=== PATIENT | female | born 1950 | race Caucasian/White ===

== ENCOUNTER → 2018-04-10 09:08 | Outpatient (CLI) | payer MEDICARE, OTHER, SELFPAY ==
--- NOTE | 2018-04-10 09:12 | BI_ITS ---
MAMMOGRAPHY - BILATERAL SCREENING REASON FOR EXAM: Female, 67 years old. Routine annual screening examination. PERTINENT HISTORY: Non-contributory. TECHNIQUE: Digital bilateral breast julianna (3D mammographic acquisition) in the CC and MLO projections. 2-D mediolateral oblique (MLO) and craniocaudad (CC) views of both breasts were obtained. CAD: Full Field Digital Mammography with Computer Added Detection was performed. COMPARISON: Comparison is made with prior examination dated February 11, 2014. FINDINGS: Breast Composition: There are scattered areas of fibroglandular density. There are no dominant masses or suspicious calcifications. No other significant abnormalities are identified. There has been no significant change since the prior study. BI/SCREENING MAMM (CAD), BILAT IMPRESSION: Stable bilateral screening mammogram. Yearly follow-up mammogram recommended. (A) ASSESSMENT CATEGORY: BIRADS Category 1: Negative. A letter regarding these results will be sent to the patient by the facility within 30 days. Approximately 10% of breast cancers are not detected by mammography. A normal mammogram should not delay biopsy of a clinically suspicious abnormality. [id number] Electronically Signed: Gary Hawley MD at 13:03 EST , Service support ,
--- NOTE | 2018-04-10 09:23 | BD_ITS ---
STUDY: DUAL ENERGY X-RAY ABSORPTIOMETRY / DXA REASON FOR EXAM: Female, 67 years old. The patient is postmenopausal. No loss of height. TECHNIQUE: Bone Mineral Density (BMD) measurements of lumbar spine and bilateral hips were obtained. COMPARISON: Comparison is made with prior study dated February 22, 2010. FINDINGS: Lumbar Spine (L1-L4): g/cm2 (0.938) / T-score (-2.0) / Z-score (-0.4) Findings are suggestive of osteopenia with a moderate fracture risk. Left Femur Total: g/cm2 (0.718) / T-score (-2.3) / Z-score (-1.0) Left Femoral Neck: g/cm2 (0.631) / T-score (-2.9) / Z-score (-1.4) Right Femur Total: g/cm2 (0.690) / T-score (-2.5) / Z-score (-1.2) Right Femoral Neck: g/cm2 (0.650) / T-score (-2.8) / Z-score (-1.2) The T-Scores on the most recent prior examination were: Lumbar Spine (L1-L4): There has been worsening of bone density since the previous examination. Left Femur Total: which represents a worsening of 3.6%. Right Femur Total: which represents a worsening of 10.3%. BD/Dexa Bone Density Study IMPRESSION: The patient is considered osteoporotic as outlined below according to World [employer] Organization (WHO) criteria with a high fracture risk. There has been worsening of bone density since the previous examination. Reference Information: The T-score is the number of standard deviations above or below the standard which is normal for young adults at their peak bone mineral density. The World Health Organization (WHO) interprets the T-scores as follows: Above -1 Normal bone density Between -1 and -2.5 Osteopenia Equal to / or below -2.5 Osteoporosis As a practical clinical guideline, osteopenia may be graded as follows: Mild -1 through -1.5 Moderate -1.6 through -2.0 Severe -2.1 through -2.4 The Z-score is the number of standard deviations above or below age-matched controls. A Z-score of less than -1.5 would be considered abnormal. References: 1. NIH Osteoporosis and Related Bone Diseases http://www.osteo.org 2. International Society for Clinical Densitometry http://www.iscd.org 3. National Osteoporosis Foundation http://www.nof.org Electronically Signed: Gary Hawley MD at 16:04 EST , Service support ,
== END ==
PROVIDERS: Family Provider Internal Medicine; PCP Internal Medicine; Referring Provider Internal Medicine; Visit Provider Internal Medicine
DX: Z12.31 Encounter for screening mammogram for malignant neoplasm of breast (principal); Z78.0 Asymptomatic menopausal state
CPT/HCPCS: 77063; 77067; 77080

== ENCOUNTER → 2019-08-31 14:30 | Outpatient (CLI) | payer MEDICARE, OTHER, SELFPAY ==
--- NOTE | 2019-08-31 14:40 | BI_ITS ---
MAMMOGRAPHY - BILATERAL SCREENING REASON FOR EXAM: Female, 68 years old. Routine annual screening examination. PERTINENT HISTORY: Non-contributory. TECHNIQUE: Digital bilateral breast burton (3D mammographic acquisition) in the CC and MLO projections. 2-D mediolateral oblique (MLO) and craniocaudad (CC) views of both breasts were obtained. CAD: Full Field Digital Mammography with Computer Added Detection was performed. COMPARISON: Comparison is made with prior examination dated April 10, 2018 and February 22, 2010. FINDINGS: Breast Composition: There are scattered areas of fibroglandular density. There are no dominant masses or suspicious calcifications. No other significant abnormalities are identified. There has been no significant change since the prior study. BI/SCREEN MAMM (CAD) W/BURTON BILAT IMPRESSION: Stable bilateral screening mammogram. Yearly follow-up mammogram recommended. (A) ASSESSMENT CATEGORY: BIRADS Category 1: Negative. A letter regarding these results will be sent to the patient by the facility within 30 days. Approximately 10% of breast cancers are not detected by mammography. A normal mammogram should not delay biopsy of a clinically suspicious abnormality. [id number] Electronically Signed: Gary Hawley, at 15:39 EDT , Service support ,
== END ==
PROVIDERS: PCP Internal Medicine; Referring Provider Internal Medicine; Visit Provider Internal Medicine
DX: Z12.31 Encounter for screening mammogram for malignant neoplasm of breast (principal)
CPT/HCPCS: 77063; 77067

== ENCOUNTER → 2019-09-18 | Outpatient (CLI) | payer MEDICARE, OTHER, SELFPAY ==
--- NOTE | 2019-09-18 09:09 | RAD_ITS ---
STUDY: X-RAY CHEST REASON FOR EXAM: Female, 68 years old. Hypertension. Tightness in the chest. TECHNIQUE: PA and lateral views of the chest. COMPARISON: None. FINDINGS: The lungs are clear and expanded. There is no demonstrated pleural abnormality. Normal size heart. Normal mediastinum and barrington. Normal visualized pulmonary arteries. Normal visualized aortic arch and descending thoracic aorta. Normal visualized thoracic spine. Normal visualized ribs, clavicles, and shoulders. There is no demonstrated abnormality of the visualized soft tissue structures of the upper abdomen. RAD/Chest PA and Lateral IMPRESSION: No acute cardiopulmonary disease. Electronically Signed: Nathan Jerry DO at 16:47 EDT Tel [phone], Service support ,
== END | disposition home or self-care (01) ==
PROVIDERS: PCP Internal Medicine; Referring Provider Internal Medicine; Visit Provider Internal Medicine
DX: R00.2 Palpitations (principal); R07.89 Other chest pain
CPT/HCPCS: 71046; 93225; 93226

== ENCOUNTER → 2019-10-08 09:58 | Outpatient (CLI) | payer MEDICARE, OTHER, SELFPAY ==
--- NOTE | 2019-10-08 10:01 | ECHOD_ITS ---
Reason For Study: Chest Tightness Procedure This was a 2D Doppler, Color Flow transthoracic echocardiogram. Exam performed in department. Left Ventricle Normal LV size. The estimated ejection fraction is 70 %. No evidence for diastolic dysfunction. No regional wall motion abnormalities noted. Right Ventricle Normal RV size. Normal systolic function. Atria Normal left atrium. Normal right atrium. No doppler evidence for ASD. Mitral Valve There is no mitral valve stenosis. Trivial mitral valve insufficiency. Tricuspid Valve There is no tricuspid stenosis. Trivial tricuspid valve insufficiency. Unable to estimate RV systolic pressure due to insufficient tricuspid regurgitant envelope. Aortic Valve Trisinus/trileaflet aortic valve. There is no aortic stenosis. No aortic valve insufficiency. Pulmonic Valve There is no pulmonic valvular stenosis. No pulmonic valve insufficiency. Great Vessels Normal aortic root. Pericardium/Pleural No pericardial effusion. MMode/2D Measurements & Calculations LVIDd: 3.9 cm IVSd: 1.3 cm Ao root diam: 2.7 cm LVIDs: 2.2 cm LVPWd: 1.3 cm RVDd: 2.7 cm FS: 44.4 % LAV(MOD-bp): 40.6 ml LVAd ap4: 22.2 cm2 SV(MOD-sp4): 37.6 ml LAV(MOD-bp) Indexed: 22.2 ml/m2 EDV(MOD-sp4): 58.6 ml LAV(MOD-sp2): 44.3 ml EDV(sp4-el): 59.2 ml LAV(MOD-sp4): 33.8 ml LVAs ap4: 11.3 cm2 ESV(MOD-sp4): 21.1 ml ESV(sp4-el): 20.0 ml EF(MOD-sp4): 64.0 % EF(sp4-el): 66.2 % SV(sp4-el): 39.2 ml LA A4 area: 14.6 cm2 LA dimension(2D): 3.1 cm RA A4 area: 12.0 cm2 Doppler Measurements & Calculations MV E max feliciano: 59.9 cm/sec Lat Peak E' Feliciano: 7.9 cm/sec Med Peak E' Feliciano: 4.7 cm/sec MV A max feliciano: 75.5 cm/sec E/E' lat: 7.5 E/E' med: 12.7 MV E/A: 0.79 Ao V2 max: 133.3 cm/sec LV V1 max: 84.5 cm/sec PA V2 max: 74.7 cm/sec Ao max P.1 mmHg LV V1 max P.9 mmHg Ao V2 mean: 96.1 cm/sec Ao mean P.0 mmHg Ao V2 VTI: 25.4 cm TR max feliciano: 235.6 cm/sec TR max P.2 mmHg Interpretation Summary No evidence for diastolic dysfunction. Trivial mitral valve insufficiency. Trivial tricuspid valve insufficiency. The estimated ejection fraction is 70 %. Ordering Physician: Karissa Bundy Referring Physician: Lanie Huddleston Performed By: Heidi Hannah, ARMOND, RVT
== END ==
PROVIDERS: PCP Internal Medicine; Referring Provider Internal Medicine; Visit Provider Internal Medicine
DX: R07.89 Other chest pain (principal)
CPT/HCPCS: 93306

== ENCOUNTER → 2020-01-11 | Outpatient (CLI) | payer MEDICARE, OTHER, SELFPAY ==
[2020-01-11 13:12] LABS: Absolute Lymphocyte Count 0.43 X10^3/uL (0.83-4.51); Absolute Neutrophil Count 8.9 X10^3/uL (2.0-7.7); Basophil# 0.02 X10^3/uL; Basophil% 0.2 % (0-1); Eosinophil# 0.16 X10^3/uL; Eosinophils% 1.6 % (0-5); Hematocrit 40.8 % (37-47); Hemoglobin 13.2 g/dL (12.0-15.0); Lymphocyte # 0.43 X10^3/ul (4.0); Lymphocyte % 4.3 % (19-41); Mean Corp Hgb Conc 32.4 g/dL (32-36); Mean Corpuscular Hgb 32.2 pg (27.0-32.0); Mean Corpuscular Volume 99.5 fL (81-99); Mean Platelet Vol. 9.4 fl (6.2-12.0); Monocyte# 0.51 X10^3/uL; Monocyte% 5.1 % (0-10); NRBC Flagged by Analyzer 0 % (0-5); Neutrophil # 8.86 X10^3/uL (2.7-7.7); Neutrophil % 88.5 % (47-70); POSITIVE DIFFERENTIAL YES; Platelet Count 291 K/mm3 (150-450); RBC Distribution Width CV 13.1 % (11.6-14.6); RBC Distribution Width SD 47.9 fl (35.1-43.9)
[2020-01-11 13:19] LABS: Differential Indicated SCAN CRITERIA MET; Erythrocyte Sedimentation Rate 7 mm/hr (0-30)
[2020-01-11 13:51] LABS: Platelet Estimate ADEQUATE (ADEQ); Red Cell Morphology NORM C+C NORMAL (NORM C&C)
[2020-01-11 13:53] LABS: ALB/GLOB Ratio 0.9 RATIO (0.9-2.4); AST(SGOT) 10 U/L (15-37); Alanine Aminotransfer ALT/SGPT 14 U/L (13-56); Albumin, Serum 3.7 g/dL (3.2-5.0); Alkaline Phosphatase 83 U/L (45-117); Amylase 43 U/L (25-115); Anion Gap 7 (5-15); BUN 10 mg/dL (7-18); BUN/Creat Ratio 12.7 RATIO (10-20); Calcium,Total 8.8 mg/dL (8.5-10.1); Chloride 107 mmol/L (98-107); Creatinine, Serum 0.79 mg/dL (0.55-1.02); EST Glomerular Filtration Rate 77 mL/min (>60); Est Glom Filt Rate - Afr Amer 93 mL/min (>60); Globulin 3.9 g/dL (2.2-4.2); Glucose 99 mg/dL (74-106); Lipase 107 U/L (73-393); Potassium 3.9 mmol/L (3.5-5.1); Protein, Total 7.6 g/dL (6.4-8.2); Sodium Level 140 mmol/L (136-145)
== END | disposition home or self-care (01) ==
LOC: LABSPEC 13:01
PROVIDERS: PCP Internal Medicine; Referring Provider Internal Medicine; Visit Provider Internal Medicine
DX: R10.13 Epigastric pain (principal)
CPT/HCPCS: 80053; 82150; 83690; 84484; 85025; 85652

== ENCOUNTER 2020-05-04 17:21 | Outpatient (RCR) | payer MEDICARE, OTHER, SELFPAY | END 2020-05-04 23:59 | LOC: IMMUN 17:21 | PROVIDERS: PCP Internal Medicine; Visit Provider Family Medicine | DX: Z23 Encounter for immunization (principal) | CPT/HCPCS: 0011A; 0012A ==

== ENCOUNTER → 2020-09-15 11:02 | Outpatient (CLI) | payer MEDICARE, OTHER, SELFPAY ==
--- NOTE | 2020-09-15 11:04 | BI_ITS ---
MAMMOGRAPHY - BILATERAL SCREENING REASON FOR EXAM: Female, 69 years old. Routine annual screening examination. PERTINENT HISTORY: Non-contributory. TECHNIQUE: Digital bilateral breast burton (3D mammographic acquisition) in the CC and MLO projections. 2-D mediolateral oblique (MLO) and craniocaudad (CC) views of both breasts were obtained. CAD: Full Field Digital Mammography with Computer Added Detection was performed. COMPARISON: Comparison is made with prior study dated 08/31/2019 and 04/10/2018. FINDINGS: Breast Composition: There are scattered areas of fibroglandular density. Possible 9.3 mm x 9 mm nodule in the medial retroareolar region of the left breast. Correlation with ultrasound is recommended. No other significant abnormalities are identified. BI/SCRN MAMM (CAD)W/BURTON BILAT IMPRESSION: Possible 9.3 mm x 9 mm nodule in the medial retroareolar region of the left breast. Correlation with ultrasound is recommended. ASSESSMENT CATEGORY: BIRADS Category 0: Incomplete. Need additional imaging evaluation. A letter regarding these results will be sent to the patient by the facility within 30 days. Approximately 10% of breast cancers are not detected by mammography. A normal mammogram should not delay biopsy of a clinically suspicious abnormality. [id number] Electronically Signed: Gary Hawley MD at 12:57 EDT , Service support ,
--- NOTE | 2020-09-15 11:10 | BD_ITS ---
STUDY: DUAL ENERGY X-RAY ABSORPTIOMETRY / DXA REASON FOR EXAM: Female, 69 years old. V76.12ScreeningBONE DENSITY REASON FOR EXAM TECHNIQUE: Bone Mineral Density (BMD) measurements of lumbar spine and bilateral hips were obtained. COMPARISON: Comparison is made with prior study dated 04/10/2018. FINDINGS: Lumbar Spine (L1-L4): g/cm2 (0.794) / T-score (-2.3) / Z-score (-0.2) Findings are suggestive of osteopenia with a high fracture risk. Left Femur Total: g/cm2 (0.707) / T-score (-1.9) / Z-score (-0.4) Left Femoral Neck: g/cm2 (0.526) / T-score (-2.9) / Z-score (-1.1) Right Femur Total: g/cm2 (0.692) / T-score (-2.0) / Z-score (-0.6) Right Femoral Neck: g/cm2 (0.511) / T-score (-3.0) / Z-score (-1.3) The T-Scores on the most recent prior examination were: Lumbar Spine (L1-L4): There has been worsening of bone density since the previous examination. Left Femur Total: which represents an improvement of 7%. Right Femur Total: which represents an improvement of 9.4%. BD/Dexa Bone Density Study IMPRESSION: The patient is considered osteoporotic as outlined below according to World [employer] Organization (WHO) criteria with a high fracture risk. There has been improvement of bone density since the previous examination. Reference Information: The T-score is the number of standard deviations above or below the standard which is normal for young adults at their peak bone mineral density. The World Health Organization (WHO) interprets the T-scores as follows: Above -1 Normal bone density Between -1 and -2.5 Osteopenia Equal to / or below -2.5 Osteoporosis As a practical clinical guideline, osteopenia may be graded as follows: Mild -1 through -1.5 Moderate -1.6 through -2.0 Severe -2.1 through -2.4 The Z-score is the number of standard deviations above or below age-matched controls. A Z-score of less than -1.5 would be considered abnormal. References: 1. NIH Osteoporosis and Related Bone Diseases www osteo.org 2. International Society for Clinical Densitometry www iscd.org 3. National Osteoporosis Foundation www nof.org Electronically Signed: Gary Hawley MD at 10:56 EDT , Service support ,
== END ==
PROVIDERS: PCP Internal Medicine; Referring Provider Internal Medicine; Visit Provider Internal Medicine
DX: Z78.0 Asymptomatic menopausal state (principal); Z12.31 Encounter for screening mammogram for malignant neoplasm of breast
CPT/HCPCS: 77063; 77067; 77080

== ENCOUNTER → 2020-09-19 13:56 | Outpatient (CLI) | payer MEDICARE, OTHER, SELFPAY ==
--- NOTE | 2020-09-19 13:58 | US_ITS ---
STUDY: ULTRASOUND BREAST - LEFT REASON FOR EXAM: Female, 69 years old. Abnormal screening mammogram. TECHNIQUE: Axial and longitudinal images of the LEFT breast were performed with a high resolution ultrasound transducer. # OF IMAGES: 60 COMPARISON: Comparison is made with prior mammogram dated 09/15/2020. FINDINGS: LEFT Breast: The left breast was examined by ultrasound. There is evidence of the fibroglandular tissue. No sonographic abnormality is seen. US/Breast Limited Unilateral IMPRESSION: No sonographic abnormality is seen. ASSESSMENT CATEGORY: BIRADS Category 1: Negative. A letter regarding these results will be sent to the patient by the facility within 30 days. Electronically Signed: Gary Hawley MD at 22:30 EDT , Service support ,
== END ==
PROVIDERS: PCP Internal Medicine; Referring Provider Internal Medicine; Visit Provider Internal Medicine
DX: R92.2 Inconclusive mammogram (principal)
CPT/HCPCS: 76642

== ENCOUNTER → 2021-12-25 | Outpatient (CLI) | payer MEDICARE, OTHER, SELFPAY ==
--- NOTE | 2021-12-25 14:59 | BI_ITS ---
MAMMOGRAPHY - BILATERAL SCREENING REASON FOR EXAM: Female, 71 years old. Routine annual screening examination. PERTINENT HISTORY: Non-contributory. TECHNIQUE: Digital bilateral breast burton (3D mammographic acquisition) in the CC and MLO projections. 2-D mediolateral oblique (MLO) and craniocaudad (CC) views of both breasts were obtained. CAD: Full Field Digital Mammography with Computer Added Detection was performed. COMPARISON: Comparison is made with prior study dated 09/15/2020 and 08/31/2019. FINDINGS: Breast Composition: There are scattered areas of fibroglandular density. There are no dominant masses or suspicious calcifications. No other significant abnormalities are identified. There has been no significant change since the prior study. BI/SCRN MAMM (CAD)W/BURTON BILAT IMPRESSION: Stable bilateral screening mammogram. Yearly follow-up mammogram recommended. (A) ASSESSMENT CATEGORY: BIRADS Category 1: Negative. A letter regarding these results will be sent to the patient by the facility within 30 days. Approximately 10% of breast cancers are not detected by mammography. A normal mammogram should not delay biopsy of a clinically suspicious abnormality. [id number] Electronically Signed: Gary Hawley MD at 15:41 EDT ,
== END | disposition home or self-care (01) ==
PROVIDERS: PCP Internal Medicine; Referring Provider Internal Medicine; Visit Provider Internal Medicine
DX: Z12.31 Encounter for screening mammogram for malignant neoplasm of breast (principal)
CPT/HCPCS: 77063; 77067

== ENCOUNTER → 2022-12-26 | Outpatient (CLI) | payer MEDICARE, OTHER, SELFPAY ==
--- NOTE | 2022-12-26 10:58 | BI_ITS ---
MAMMOGRAPHY - BILATERAL SCREENING REASON FOR EXAM: Female, 72 years old. Routine annual screening examination. PERTINENT HISTORY: Non-contributory. TECHNIQUE: Digital bilateral breast burton (3D mammographic acquisition) in the CC and MLO projections. 2-D mediolateral oblique (MLO) and craniocaudad (CC) views of both breasts were obtained. CAD: Full Field Digital Mammography with Computer Added Detection was performed. COMPARISON: Comparison is made with prior study dated December 25, 2021 and September 15, 2020. FINDINGS: Breast Composition: There are scattered areas of fibroglandular density. There are no dominant masses or suspicious calcifications. Small left benign appearing axillary lymph nodes. No other significant abnormalities are identified. There has been no significant change since the prior study. BI/SCRN MAMM (CAD)W/BURTON BILAT IMPRESSION: Stable bilateral screening mammogram. Yearly follow-up mammogram recommended. (A) ASSESSMENT CATEGORY: BIRADS Category 2: Benign. A letter regarding these results will be sent to the patient by the facility within 30 days. Approximately 10% of breast cancers are not detected by mammography. A normal mammogram should not delay biopsy of a clinically suspicious abnormality. [id number] Electronically Signed: Gary Hawley MD at 12:21 EDT ,
== END | disposition home or self-care (01) ==
LOC: OPBI 10:57
PROVIDERS: PCP Internal Medicine; Referring Provider Internal Medicine; Visit Provider Internal Medicine
DX: Z12.31 Encounter for screening mammogram for malignant neoplasm of breast (principal)
CPT/HCPCS: 77063; 77067

== ENCOUNTER → 2023-04-02 | Outpatient (CLI) | payer MEDICARE, OTHER, SELFPAY ==
--- NOTE | 2023-04-02 12:41 | BD_ITS ---
STUDY: DUAL ENERGY X-RAY ABSORPTIOMETRY / DXA REASON FOR EXAM: Female, 72 years old. [id number] TECHNIQUE: Bone Mineral Density (BMD) measurements of lumbar spine and bilateral hips were obtained. COMPARISON: Comparison is made with prior study dated September 15, 2020. FINDINGS: Lumbar Spine (L1-L4): g/cm2 (0.764) / T-score (-2.6) / Z-score (-0.3) Findings are suggestive of osteoporosis with a high fracture risk. Left Femur Total: g/cm2 (0.689) / T-score (-2.1) / Z-score (-0.4) Left Femoral Neck: g/cm2 (0.481) / T-score (-3.3) / Z-score (-1.4) Right Femur Total: g/cm2 (0.698) / T-score (-2.0) / Z-score (-0.4) Right Femoral Neck: g/cm2 (0.499) / T-score (-3.2) / Z-score (-1.2) The T-Scores on the most recent prior examination were: Lumbar Spine (L1-L4): There has been worsening of bone density since the previous examination. Left Femur Total: which represents a worsening of 2.4%. Right Femur Total: which represents an improvement of 0.8%. BD/Dexa Bone Density Study IMPRESSION: The patient is considered osteoporotic as outlined below according to World [employer] Organization (WHO) criteria with a high fracture risk. There has been worsening of bone density since the previous examination. Reference Information: The T-score is the number of standard deviations above or below the standard which is normal for young adults at their peak bone mineral density. The World Health Organization (WHO) interprets the T-scores as follows: Above -1 Normal bone density Between -1 and -2.5 Osteopenia Equal to / or below -2.5 Osteoporosis As a practical clinical guideline, osteopenia may be graded as follows: Mild -1 through -1.5 Moderate -1.6 through -2.0 Severe -2.1 through -2.4 The Z-score is the number of standard deviations above or below age-matched controls. A Z-score of less than -1.5 would be considered abnormal. References: 1. NIH Osteoporosis and Related Bone Diseases www osteo.org 2. International Society for Clinical Densitometry www iscd.org 3. National Osteoporosis Foundation www nof.org Electronically Signed: Gary Hawley MD at 14:54 EST ,
--- OUTSIDE RECORDS SUMMARY | 2023-04-02 13:21 | XMS RPT_ITS | CCD ---
Author Name Unknown Address [address] [place] [address] Organization [facility] Care Team Providers Care Geothermal Operating Engineer Name Role Phone OLY GASPAR (ESTER) Unavailable Unavailable IRENE LÓPEZ Unavailable Unavailable CADEN SALEH Unavailable Unavailable CADEN SALEH Unavailable Unavailable OLY GASPAR (ESTER) Unavailable Unavailable OLY GASPAR (ESTER) Unavailable Unavailable IRENE LÓPEZ Unavailable Unavailable Karissa Bundy Unavailable RUTH ANN Cannon Unavailable Unavailable Unavailable Unavailable Karissa Bundy Unavailable RUTH ANN Cannon Unavailable Unavailable Unavailable Unavailable Slarb, Dilma Unavailable Unavailable RUTH ANN Cannon Unavailable Unavailable Manjessica Savita Unavailable Unavailable Flaquito, Lanie A Unavailable Cathy Ortiz Unavailable Unavailable Karissa Bundy MD Unavailable RUTH ANN Cannon LPN Unavailable Unavailable Unavailable Unavailable Karissa Bundy MD Unavailable Janie Lea MA Unavailable Unavailable Barron HARTLEY, Kayela Unavailable Unavailable Evy RODRIGUEZ, Margo Unavailable Unavailable Unavailable Unavailable Manjessica HARTLEY, Savita Unavailable Unavailable Karissa Bundy MD Attending Unavailable Karissa Bundy MD Consulting Unavailable Karissa Bundy MD Referring Unavailable Cash , Dr. Adams Unavailable Flaquita Sawyer Unavailable Unavailab le Medications Completed/Discontinued Medications Medication Drug Class(es) Dates Sig (Normalized) Sig (Original) amoxicillin 875 mg / clavulanate 125 mg oral tablet (20 sources) Penicillin-class Antibacterial Start: 06-01-2021 End: 07-18-2021 take 1 tablet by mouth twice daily Amoxicillin-Pot Clavulanate 875-125 MG Oral Tablet 1 (one) Tablet bid for 0 days Quantity: 20 {Tablet} Refills: 0 Ordered: 18-Jul-2021 RUTH ANN Cannon LPN Start : 01-Jun-2021 End : 18-Jul-2021 Inactive Problems Active Problems Problem Classification Problem Date Documented Da te Episodic/Chronic Abdominal pain (20 sources) Epigastric pain; Translations: [Epigastric pain] Resolved: 01-22-2022 11-27-2018 Episodic Past or Other Problems Problem Classification Problem Date Documented Date Episodic/Chronic Conditions associated with dizziness or vertigo (20 sources) Conditions associated with dizziness or vertigo E Codes: Natural/environment (20 sources) Dog bite Influenza (20 sources) Influenza Nutritional deficiencies (4 sources) Disorder of vitamin D; Translations: [Vitamin D insufficiency] 01-14-2018 Episodic Other upper respiratory disease (20 sources) Nasal discharge; Translations: [Post-nasal drainage] Resolved: 08-06-2019 11-27-2018 Episodic Residual codes; unclassified (20 sources) Needs influenza immunization; Translations: [Need for prophylactic vaccination and inoculation against influenza (Renamed from Need for immunization against influenza)] Resolved: 01-15-2020 08-06-2019 Episodic Unclassified (20 sources) Patient encounter status; Translations: [Screening for HPV (human papillomavirus) (Renamed from Encounter for screening for human papillomavirus (HPV))] Resolved: 01-15-2020 01-14-2018 Results Test Name Value Interpretation Reference Range Facil ity Vital Signs Date Time Vital Sign Value Performing Clinician Facility 08-27-2022 09:59-0400 Body height 160.02 cm [facility]; [facility] Work Phone: 08-27-2022 09:59-0400 Body mass index (BMI) [Ratio] 30.34 kg/m2 [facility]; [facility] Work Phone: 08-27-2022 09:59-0400 Body surface area Derived from formula 1.81 m2 [facility]; [facility] Work Phone: 08-27-2022 09:59-0400 Body temperature 97 [degF] [facility]; [facility] Work Phone: 08-27-2022 09:59-0400 Body weight 77.68 kg [facility]; [facility] Work Phone: 08-27-2022 09:59-0400 Diastolic blood pressure 68 mm[Hg] [facility]; [facility] Work Phone: Encounters Encounter Date Encounter Type Care Provider Facility Start: 12-04-2022 End: 12-04-2022 Phone Encounter Karissa Bundy MD Work Phone: [facility] Start: 08-27-2022 End: 08-27-2022 Office outpatient visit 25 minutes Karissa Bundy MD Work Phone: [facility] Start: 08-27-2022 End: 08-27-2022 Patient encounter procedure Karissa Bundy MD Work Phone: [facility]; [facility] Work Phone: Procedures Date Procedure Procedure Detail Performing Clinician Start: 12-25-2021 End: 12-25-2021 SCRN MAMM (CAD)W/BURTON BILAT Procedure Note: See Note; NOTES: [facility] [place] Imaging Services [address] [place] [address] 1969[address] SCRN MAMM (CAD)W/BURTON BILAT MR#: [id number] Acct: [id number] Name: LUDMILA MADRID Rep #: [id number] : 1950 F 71 From: Gary lin MD PCP: Dr. Karissa Bundy MD Status: REG CLI Study: SCRN MAMM (CAD)W/BURTON BILAT Date of Exam: 12/03 06/23 Exam# [id number] Ordering Dr: Karissa Bundy MD MAMMOGRAPHY - BILATERAL SCREENING REASON FOR EXAM: Female, 71 years old. Routine annual screening examination. PERTINENT HISTORY: Non-contributory. TECHNIQUE: Digital bilateral breast burton (3D mammographic acquisition) in the CC and MLO projections. 2-D mediolateral oblique (MLO) and craniocaudad (CC) views of both breasts were obtained. CAD: Full Field Digital Mammography with Computer Added Detection was performed. COMPARISON: Comparison is made with prior study dated 09/15/2020 and 08/31/2019. FINDINGS: Breast Composition: There are scattered areas of fibroglandular density. There are no dominant masses or suspicious calcifications. No other significant abnormalities are identified. There has been no significant change since the prior study. BI/SCRN MAMM (CAD)W/BURTON BILAT IMPRESSION: Stable bilateral screening mammogram. Yearly follow-up mammogram recommended. (A) ASSESSMENT CATEGORY: BIRADS Category 1: Negative. A letter regarding these results will be sent to the patient by the facility within 30 days. Approximately 10% of breast cancers are not detected by mammography. A normal mammogram should not delay biopsy of a clinically suspicious abnormality. [id number] Electronically Signed: Gary Hawley MD at 15:41 EDT , CC: Dr. Karissa Bundy MD Seafood Technology Specialist: Signed Karissa Bundy MD Work Phone: Start: 09-19-2020 End: 09-19-2020 Breast Limited Unilateral Comments: See Note; NOTES: [facility] [place] Imaging Services [address] [place] [address] Breast Limited Unilateral MR#: [id number] Acct: [id number] Name: LUDMILA MADRID Rep #: [id number] : 1950 F 69 From: Gary lin MD PCP: Dr. Karissa Bundy MD Status: REG CLI Study: Breast Limited Unilateral Date of Exam: Exam# [id number] Ordering Dr: Karissa Bundy MD STUDY: ULTRASOUND BREAST - LEFT REASON FOR EXAM: Female, 69 years old. Abnormal screening mammogram. TECHNIQUE: Axial and longitudinal images of the LEFT breast were performed with a high resolution ultrasound transducer. # OF IMAGES: 60 COMPARISON: Comparison is made with prior mammogram dated 09/15/2020. FINDINGS: LEFT Breast: The left breast was examined by ultrasound. There is evidence of the fibroglandular tissue. No sonographic abnormality is seen. US/Breast Limited Unilateral IMPRESSION: No sonographic abnormality is seen. ASSESSMENT CATEGORY: BIRADS Category 1: Negative. A letter regarding these results will be sent to the patient by the facility within 30 days. Electronically Signed: Gary Hawley MD at 22:30 EDT , Service support , CC: Dr. Karissa Bundy MD Seafood Technology Specialist: Signed Karissa Bundy MD Work Phone: Start: 09-15-2020 End: 09-16-2020 Dexa Bone Density Study Comments: See Note; NOTES: [facility] [place] Imaging Services [address] [place] [address]54 Dexa Bone Density Study MR#: [id number] Acct: [id number] Name: LUDMILA MADRID Rep #: [id number] : 1950 F 69 From: Gary lin MD PCP: Dr. Karissa Bundy MD Status: [facility] Study: Dexa Bone Density Study Date of Exam: 09/15/20 Exam# [id number] Ordering Dr: Karissa Bundy MD STUDY: DUAL ENERGY X-RAY ABSORPTIOMETRY / DXA REASON FOR EXAM: Female, 69 years old. V76.12ScreeningBONE DENSITY REASON FOR EXAM TECHNIQUE: Bone Mineral Density (BMD) measurements of lumbar spine and bilateral hips were obtained. COMPARISON: Comparison is made with prior study dated 04/10/2018. FINDINGS: Lumbar Spine (L1-L4): g/cm2 (0.794) / T-score (-2.3) / Z-score (-0.2) Findings are suggestive of osteopenia with a high fracture risk. Left Femur Total: g/cm2 (0.707) / T-score (-1.9) / Z-score (-0.4) Left Femoral Neck: g/cm2 (0.526) / T-score (-2.9) / Z-score (-1.1) Right Femur Total: g/cm2 (0.692) / T-score (-2.0) / Z-score (-0.6) Right Femoral Neck: g/cm2 (0.511) / T-score (-3.0) / Z-score (-1.3) The T-Scores on the most recent prior examination were: Lumbar Spine (L1-L4): There has been worsening of bone density since the previous examination. Left Femur Total: which represents an improvement of 7%. Right Femur Total: which represents an improvement of 9.4%. BD/Dexa Bone Density Study IMPRESSION: The patient is considered osteoporotic as outlined below according to World [employer] Organization (WHO) criteria with a high fracture risk. There has been improvement of bone density since the previous examination. Reference Information: The T-score is the number of standard deviations above or below the standard which is normal for young adults at their peak bone mineral density. The World Health Organization (WHO) interprets the T-scores as follows: Above -1 Normal bone density Between -1 and -2.5 Osteopenia Equal to / or below -2.5 Osteoporosis As a practical clinical guideline, osteopenia may be graded as follows: Mild -1 through -1.5 Moderate -1.6 through -2.0 Severe -2.1 through -2.4 The Z-score is the number of standard deviations above or below age-matched controls. A Z-score of less than -1.5 would be considered abnormal. References: 1. NIH Osteoporosis and Related Bone Diseases www osteo.org 2. International Society for Clinical Densitometry www iscd.org 3. National Osteoporosis Foundation www nof.org Electronically Signed: Gary Hawley MD at 10:56 EDT , Service support , CC: Dr. Karissa Bundy MD Seafood Technology Specialist: Signed Karissa Bundy MD Work Phone: Start: 09-15-2020 End: 09-15-2020 SCRN MAMM (CAD)W/BURTON BILAT Comments: See Note; NOTES: [facility] [place] Imaging Services [address] [place] [address]79 SCRN MAMM (CAD)W/BURTON BILAT MR#: [id number] Acct: [id number] Name: LUDMILA MADRID Rep #: [id number] : 1950 F 69 From: Gary lin MD PCP: Dr. Karissa Bundy MD Status: [facility] Study: SCRN MAMM (CAD)W/BURTON BILAT Date of Exam: 09/01 07/22 Exam# [id number] Ordering Dr: Karissa Bundy MD MAMMOGRAPHY - BILATERAL SCREENING REASON FOR EXAM: Female, 69 years old. Routine annual screening examination. PERTINENT HISTORY: Non-contributory. TECHNIQUE: Digital bilateral breast burton (3D mammographic acquisition) in the CC and MLO projections. 2-D mediolateral oblique (MLO) and craniocaudad (CC) views of both breasts were obtained. CAD: Full Field Digital Mammography with Computer Added Detection was performed. COMPARISON: Comparison is made with prior study dated 08/31/2019 and 04/10/2018. FINDINGS: Breast Composition: There are scattered areas of fibroglandular density. Possible 9.3 mm x 9 mm nodule in the medial retroareolar region of the left breast. Correlation with ultrasound is recommended. No other significant abnormalities are identified. BI/SCRN MAMM (CAD)W/BURTON BILAT IMPRESSION: Possible 9.3 mm x 9 mm nodule in the medial retroareolar region of the left breast. Correlation with ultrasound is recommended. ASSESSMENT CATEGORY: BIRADS Category 0: Incomplete. Need additional imaging evaluation. A letter regarding these results will be sent to the patient by the facility within 30 days. Approximately 10% of breast cancers are not detected by mammography. A normal mammogram should not delay biopsy of a clinically suspicious abnormality. [id number] Electronically Signed: Gary Hawley MD at 12:57 EDT , Service support , CC: Dr. Karissa Bundy MD Seafood Technology Specialist: Signed Karissa Bundy MD Work Phone: Start: 10-08-2019 End: 10-08-2019 Echo Complete Comments: See Note; NOTES: [facility] Cardiovascular Services [address] [place] [address] Echo Complete 10/08/19 1001 MR#: [id number] Acct: [id number] Name: LUDMILA MADRID Rep #: [id number] : 1950 68 From: Erwin Luis MD Attending Dr: Dr. Lanie Huddleston, DO Status: REG CL I Ordering Dr: Lanie Huddleston DO Date: 10/08/19 Location: [facility] Sex: F C Admitted: Reason For Study: Chest Tightness Procedure This was a 2D Doppler, Color Flow transthoracic echocardiogram. Exam performed in department. Left Ventricle Normal LV size. The estimated ejection fraction is 70 %. No evidence for diastolic dysfunction. No regional wall motion abnormalities noted. Right Ventricle Normal RV size. Normal systolic function. Atria Normal left atrium. Normal right atrium. No doppler evidence for ASD. Mitral Valve There is no mitral valve stenosis. Trivial mitral valve insufficiency. Tricuspid Valve There is no tricuspid stenosis. Trivial tricuspid valve insufficiency. Unable to estimate RV systolic pressure due to insufficient tricuspid regurgitant envelope. Aortic Valve Trisinus/trileaflet aortic valve. There is no aortic stenosis. No aortic valve insufficiency. Pulmonic Valve There is no pulmonic valvular stenosis. No pulmonic valve insufficiency. Great Vessels Normal aortic root. Pericardium/Pleural No pericardial effusion. MMode/2D Measurements Calculations LVIDd: 3.9 cm IVSd: 1.3 cm Ao root diam: 2.7 cm LVIDs: 2.2 cm LVPWd: 1.3 cm RVDd: 2.7 cm FS: 44.4 % ___ LAV(MOD-bp): 40.6 ml LVAd ap4: 22.2 cm2 SV(MOD-sp4): 37.6 ml LAV(MOD-bp) Indexed: 22.2 ml/m2 EDV(MOD-sp4): 58.6 ml LAV(MOD-sp2): 44.3 ml EDV(sp4-el): 59.2 ml LAV(MOD-sp4): 33.8 ml LVAs ap4: 11.3 cm2 ESV(MOD-sp4): 21.1 ml ESV(sp4-el): 20.0 ml EF(MOD-sp4): 64.0 % EF(sp4-el): 66.2 % ___ SV(sp4-el): 39.2 ml LA A4 area: 14.6 cm2 LA dimension(2D): 3.1 cm ___ RA A4 area: 12.0 cm2 Doppler Measurements Calculations MV E max feliciano: 59.9 cm/sec Lat Peak E' Feliciano: 7.9 cm/sec Med Peak E' Feliciano: 4.7 cm/sec MV A max feliciano: 75.5 cm/sec E/E' lat: 7.5 E/E' med: 12.7 MV E/A: 0.79 ___ Ao V2 max: 133.3 cm/sec LV V1 max: 84.5 cm/sec PA V2 max: 74.7 cm/sec Ao max P.1 mmHg LV V1 max P.9 mmHg Ao V2 mean: 96.1 cm/sec Ao mean P.0 mmHg Ao V2 VTI: 25.4 cm ___ TR max feliciano: 235.6 cm/sec TR max P.2 mmHg Interpretation Summary No evidence for diastolic dysfunction. Trivial mitral valve insufficiency. Trivial tricuspid valve insufficiency. The estimated ejection fraction is 70 %. _ Ordering Physician: Karissa Bundy Referring Physician: Lanie Huddleston Performed By: Heidi Hannah RDCS, RVT 10/08/19 1520 Date Erwin Luis MD CC: Dr. Karissa Bundy MD; Dr. Lanie Huddleston DO Date Dictated: 10/08/19 1001 Date Transcribed: 10/08/19 1520 Seafood Technology Specialist: Signed Lanie Huddleston Work Phone: Start: 09-18-2019 End: 09-18-2019 Chest PA and Lateral Comments: See Note; NOTES: [facility] [place] Imaging Services [address] [place], [place] [address] [address] Chest PA and Lateral MR#: [id number] Acct: [id number] Name: LUDMILA MADRID Rep #: [id number] : 1950 F 68 From: Nathan Jerry DO PCP: Dr. Karissa Bundy MD Status: REG CLI Study: Chest PA and Lateral Date of Exam: 09/18/19 Exam# [id number] Ordering Dr: Karissa Bundy MD STUDY: X-RAY CHEST REASON FOR EXAM: Female, 68 years old. Hypertension. Tightness in the chest. TECHNIQUE: PA and lateral views of the chest. COMPARISON: None. FINDINGS: The lungs are clear and expanded. There is no demonstrated pleural abnormality. Normal size heart. Normal mediastinum and barrington. Normal visualized pulmonary arteries. Normal visualized aortic arch and descending thoracic aorta. Normal visualized thoracic spine. Normal visualized ribs, clavicles, and shoulders. There is no demonstrated abnormality of the visualized soft tissue structures of the upper abdomen. RAD/Chest PA and Lateral IMPRESSION: No acute cardiopulmonary disease. Electronically Signed: Nathan Jerry DO at 16:47 EDT Tel [phone], Service support , CC: Dr. Karissa Bundy MD Seafood Technology Specialist: Signed Karissa Bundy Work Phone: Start: 08-31-2019 End: 08-31-2019 SCREEN MAMM (CAD) W/BURTON BILAT Comments: See Note; NOTES: [facility] [place] Imaging Services [address] [place] [address] SCREEN MAMM (CAD) W/BURTON BILAT MR#: [id number] Acct: [id number] Name: LUDMILA MADRID Rep #: [id number] : 1950 F 68 From: Gary lin MD PCP: Dr. Karissa Bundy MD Status: PRE CLI Study: SCREEN MAMM (CAD) W/BURTON BILAT Date of Exam: 0 08/31/19 Exam# [id number] Ordering Dr: Karissa Bundy MD MAMMOGRAPHY - BILATERAL SCREENING REASON FOR EXAM: Female, 68 years old. Routine annual screening examination. PERTINENT HISTORY: Non-contributory. TECHNIQUE: Digital bilateral breast burton (3D mammographic acquisition) in the CC and MLO projections. 2-D mediolateral oblique (MLO) and craniocaudad (CC) views of both breasts were obtained. CAD: Full Field Digital Mammography with Computer Added Detection was performed. COMPARISON: Comparison is made with prior examination dated April 10, 2018 and February 22, 2010. FINDINGS: Breast Composition: There are scattered areas of fibroglandular density. There are no dominant masses or suspicious calcifications. No other significant abnormalities are identified. There has been no significant change since the prior study. BI/SCREEN MAMM (CAD) W/BURTON BILAT IMPRESSION: Stable bilateral screening mammogram. Yearly follow-up mammogram recommended. (A) ASSESSMENT CATEGORY: BIRADS Category 1: Negative. A letter regarding these results will be sent to the patient by the facility within 30 days. Approximately 10% of breast cancers are not detected by mammography. A normal mammogram should not delay biopsy of a clinically suspicious abnormality. [id number] Electronically Signed: Gary Hawley, at 15:39 EDT , Service support , CC: Dr. Karissa Bundy MD Seafood Technology Specialist: Signed Karissa Bundy Work Phone: Start: 04-10-2018 End: 04-10-2018 Dexa Bone Density Study Comments: See Note; NOTES: [facility] [place] Imaging Services [facility] [place] [address] Dexa Bone Density Study MR#: [id number] Acct: [id number] Name: LUDMILA MADRID Rep #: [id number] : 1950 F 67 From: Gray Hawley MD PCP: Karissa Bundy MD Status: REG CLI Study: Dexa Bone Density Study Date of Exam: 04/10/18 Exam# [id number] Ordering Dr: Karissa Bundy MD STUDY: DUAL ENERGY X-RAY ABSORPTIOMETRY / DXA REASON FOR EXAM: Female, 67 years old. The patient is postmenopausal. No loss of height. TECHNIQUE: Bone Mineral Density (BMD) measurements of lumbar spine and bilateral hips were obtained. COMPARISON: Comparison is made with prior study dated February 22, 2010. FINDINGS: Lumbar Spine (L1-L4): g/cm2 (0.938) / T-score (-2.0) / Z-score (-0.4) Findings are suggestive of osteopenia with a moderate fracture risk. Left Femur Total: g/cm2 (0.718) / T-score (-2.3) / Z-score (-1.0) Left Femoral Neck: g/cm2 (0.631) / T-score (-2.9) / Z-score (-1.4) Right Femur Total: g/cm2 (0.690) / T-score (-2.5) / Z-score (-1.2) Right Femoral Neck: g/cm2 (0.650) / T-score (-2.8) / Z-score (-1.2) The T-Scores on the most recent prior examination were: Lumbar Spine (L1-L4): There has been worsening of bone density since the previous examination. Left Femur Total: which represents a worsening of 3.6%. Right Femur Total: which represents a worsening of 10.3%. BD/Dexa Bone Density Study IMPRESSION: The patient is considered osteoporotic as outlined below according to World [employer] Organization (WHO) criteria with a high fracture risk. There has been worsening of bone density since the previous examination. Reference Information: The T-score is the number of standard deviations above or below the standard which is normal for young adults at their peak bone mineral density. The World Health Organization (WHO) interprets the T-scores as follows: Above -1 Normal bone density Between -1 and -2.5 Osteopenia Equal to / or below -2.5 Osteoporosis As a practical clinical guideline, osteopenia may be graded as follows: Mild -1 through -1.5 Moderate -1.6 through -2.0 Severe -2.1 through -2.4 The Z-score is the number of standard deviations above or below age-matched controls. A Z-score of less than -1.5 would be considered abnormal. References: 1. NIH Osteoporosis and Related Bone Diseases http://www.osteo.org 2. International Society for Clinical Densitometry http://www.iscd.org 3. National Osteoporosis Foundation http://www.nof.org Electronically Signed: Gary Hawley MD at 16:04 EST , Service support , CC: Karissa Bundy MD Seafood Technology Specialist: Signed Karissa Bundy Work Phone: Start: 04-10-2018 End: 04-10-2018 SCREENING MAMM (CAD), BILAT Comments: See Note; NOTES: [facility] [place] Imaging Services [address] [place] [address] SCREENING MAMM (CAD), BILAT MR#: [id number] Acct: [id number] Name: LUDMILA MADRID Rep #: [id number] : 1950 F 67 From: Gary Hawley MD PCP: Karissa Bundy MD Status: [facility] CLI Study: SCREENING MAMM (CAD), BILAT Date of Exam: 04/10/18 Exam# [id number] Ordering Dr: Karissa Bundy MD MAMMOGRAPHY - BILATERAL SCREENING REASON FOR EXAM: Female, 67 years old. Routine annual screening examination. PERTINENT HISTORY: Non-contributory. TECHNIQUE: Digital bilateral breast burton (3D mammographic acquisition) in the CC and MLO projections. 2-D mediolateral oblique (MLO) and craniocaudad (CC) views of both breasts were obtained. CAD: Full Field Digital Mammography with Computer Added Detection was performed. COMPARISON: Comparison is made with prior examination dated February 11, 2014. FINDINGS: Breast Composition: There are scattered areas of fibroglandular density. There are no dominant masses or suspicious calcifications. No other significant abnormalities are identified. There has been no significant change since the prior study. BI/SCREENING MAMM (CAD), BILAT IMPRESSION: Stable bilateral screening mammogram. Yearly follow-up mammogram recommended. (A) ASSESSMENT CATEGORY: BIRADS Category 1: Negative. A letter regarding these results will be sent to the patient by the facility within 30 days. Approximately 10% of breast cancers are not detected by mammography. A normal mammogram should not delay biopsy of a clinically suspicious abnormality. [id number] Electronically Signed: Gary Hawley MD at 13:03 EST , Service support , CC: Karissa Bundy MD Seafood Technology Specialist: Signed Karissa Bundy Work Phone: Basal Cell Carcinoma RUTH ANN Cannon Plan of Treatment Date Care Activity Detail Author Start: 08-27-2022 Procedure Education Eprescribed prescriptions (G8553) [facility]; [facility] Work Phone: Start: 08-21-2022 Lipid panel LIPID PANEL (60856) [facility]; [facility] Work Phone: Start: 08-21-2022 Urinalysis qual/semiquant except immunoassays URINALYSIS (83963) [facility]; [facility] Work Phone: Start: 01-22-2022 Blood count complete auto&auto difrntl wbc CBC W/AUTO DIFF WBC (90623) [facility]; [facility] Work Phone: Start: 01-22-2022 Comprehensive metabolic panel METABOLIC PANEL, COMPREHENSIVE (37994) [facility]; [facility] Work Phone: Start: 09-28-2021 Procedure Education Eprescribed prescriptions (G8553) [facility]; [facility] Work Phone: Start: 09-12-2021 Procedure Education Eprescribed prescriptions (G8553) [facility]; [facility] Work Phone: Start: 07-18-2021 Procedure Education Eprescribed prescriptions (G8553) [facility]; [facility] Work Phone: Start: 01-19-2021 Urnls dip stick/tablet reagent auto microscopy URINALYSIS, W/ MICRO (22585) [facility]; [facility] Work Phone: Start: 01-19-2021 Comprehensive metabolic panel METABOLIC PANEL, COMPREHENSIVE (46198) [facility]; [facility] Work Phone: Start: 01-19-2021 Blood count manual cell count each CBC with auto diff (91001) [facility]; [facility] Work Phone: Start: 11-01-2020 Procedure Education Eprescribed prescriptions (G8553) [facility]; [facility] Work Phone: Start: 05-06-2020 Troponin I.cardiac [Mass/Vol] Troponin I (18736) [facility]; [facility] Work Phone: Start: 05-06-2020 Blood count complete automated CBC (Auto) (89552) [facility]; [facility] Work Phone: Start: 05-06-2020 Comprehensive metabolic panel Metabolic Panel, Comprehensive (19563) [facility]; [facility] Work Phone: Start: 05-06-2020 HbA1c (Bld) [Mass fraction] HgA1C , Office (71999) [facility]; [facility] Work Phone: Start: 02-15-2020 Lipid panel LIPID PANEL (39579) [facility]; [facility] Work Phone: Start: 02-15-2020 25 hydroxy includes fractions if performed CALCIFIDIOL (39294) VIT D 25 [facility]; [facility] Work Phone: Start: 01-26-2020 Urine albumin quantitative MICROALBUMIN: CREATININE RATIO (13979) AND (36057) [facility] Work Phone: Start: 01-26-2020 Urinalysis qual/semiquant except immunoassays URINALYSIS (24570) [facility] Work Phone: Start: 01-11-2020 Provider Instructions for Treatment *Abd Pain Red Flags [facility] Work Phone: Start: 01-11-2020 Assay of troponin quantitative Troponin I (20275) [facility]; [facility] Work Phone: Start: 01-11-2020 Troponin I.cardiac [Mass/Vol] Troponin I (43220) [facility] Work Phone: Start: 01-11-2020 Amylase [Catalytic activity/Vol] Amylase (61227) [facility] Work Phone: Start: 01-11-2020 Assay of amylase Amylase (42408) [facility]; [facility] Work Phone: Start: 01-11-2020 Assay of lipase Lipase (96741) [facility] Work Phone: Start: 01-11-2020 Sedimentation rate rbc non-automated Sed Rate Erythrocyte (80642) [facility] Work Phone: Start: 01-11-2020 Comprehensive metabolic panel Metabolic Panel, Comprehensive (61070) [facility] Work Phone: Start: 01-11-2020 Blood count manual cell count each CBC with auto diff (40247) [facility] Work Phone: Start: 12-21-2019 Procedure Education Eprescribed prescriptions (G8553) [facility] Work Phone: Start: 10-15-2019 Renal function panel Renal function Panel (08795) [facility] Work Phone: Start: 09-30-2019 Procedure Education Eprescribed prescriptions (G8553) [facility] Work Phone: Start: 09-16-2019 Fibrin dgradj products d-dimer quantitative D-Dimer (21460) [facility] Work Phone: Start: 09-16-2019 TSH Qn TSH (91875) [facility] Work Phone: Start: 09-16-2019 Comprehensive metabolic panel METABOLIC PANEL, COMPREHENSIVE (89934) [facility] Work Phone: Start: 09-16-2019 Blood count complete auto&auto difrntl wbc CBC W/AUTO DIFF WBC (97636) [facility] Work Phone: Start: 09-16-2019 Provider Instructions for Treatment HTN/CAD Red Flags [facility] Work Phone: Start: 01-09-2019 Blood count manual cell count each CBC WITH MANUAL DIFF (32104) [facility] Work Phone: Start: 01-09-2019 Comprehensive metabolic panel Metabolic Panel, Comprehensive (50745) [facility] Work Phone: Start: 01-09-2019 Urinalysis qual/semiquant except immunoassays URINALYSIS (63844) [facility] Work Phone: Start: 11-27-2018 Procedure Education Eprescribed prescriptions (G8553) [facility] Work Phone: Start: 03-17-2018 25 hydroxy includes fractions if performed CALCIFIDIOL (73962) VIT D 25 [facility] Work Phone: Start: 01-14-2018 Organic acid 1 quantitative Methymalonic Acid, Serum (30895) [facility] Work Phone: Start: 01-14-2018 Cobalamin (Vitamin B12) mass conc Vitamin B-12 (cyanocobalamin) (03641) [facility] Work Phone: Start: 01-14-2018 Hepatitis c antibody HEPATITIS C ANTIBODY (70100) [facility] Work Phone: Start: 01-14-2018 25 hydroxy includes fractions if performed CALCIFIDIOL (68007) VIT D 25 [facility] Work Phone: Start: 01-14-2018 Renal function panel Renal function Panel (12091) [facility] Work Phone: Start: 01-14-2018 Hpv, dna, amp probe HPV automatic (61956) [facility] Work Phone: [facility] Work [facility]: [facility] Work [facility]: [facility] Work [facility]: [facility] Work [facility]: [facility] Work [facility]: [facility] Work [facility]: [facility] Work [facility]: [facility] Work Phone: [facility]; [facility] Work Phone: [facility]; [facility] Work Phone: [facility]; [facility] Work Phone: [facility]; [facility] Work Phone: [facility]; [facility] Work Phone: [facility]; [facility] Work Phone: Immunizations Immunization Date Immunization Notes Care Provider Jacob tomlinson 11-02-2021 pneumococcal conjuga te vaccine, 13 valent Karissa Bundy MD Work Phone: [facility]; [facility] Work Phone: Payers Date Payer Category Payer Unknown [id number] 2015 Medicare [id number] 2015 Medicare [id number] A 1950 Unknown [id number] Unknown Social History Date Type Detail Facility Alcohol Use: Former smoker [facility] Work Phone: Functional Status Date Assessment Result Facility 08-07-2019 LP-IR Score LP-IR Score <25 [facility] Work Phone: Clinical Notes Note Date & Type Note Facility [facility]; [facility] Work Phone: Instructions* Name Dates Details Patient Instructions Indication:Encounter for annual general medical examination with abnormal findings in adult Start:15-Aug-2020 Instruction Type:Provider Instructions for Treatment How to Access Health Informa tion Online using Patient Portal and [employer] Apps Indication:Encounter for annual general medical examination with abnormal findings in adult Start:15-Aug-2020 Instruction Type:Patient Education Patient Instructions Indication:BMI 32.0-32.9,adult Start:06-May-2020 Instruction Type:Provider Instructions for Treatment How to Access Health Informa tion Online using Patient Portal and [employer] Apps Indication:BMI 32.0-32.9,adult Start:06-May-2020 Instruction Type:Patient Education How to Access Health Informa tion Online using Patient Portal and [employer] Apps Indication:Encounter for annual general medical examination with abnormal findings in adult Start:15-Feb-2020 Instruction Type:Patient Education Patient Instructions Indication:Encounter for annual general medical examination with abnormal findings in adult Start:15-Feb-2020 Instruction Type:Provider Instructions for Treatment How to access health informa tion online Indication:Hypertension, benign Start:21-Dec-2019 Instruction Type:Patient Education How to access health informa tion online - Detail Indication:Hypertension, benign Start:21-Dec-2019 Instruction Type:Patient Education Patient Instructions Indication:Hypertension, benign Start:21-Dec-2019 Instruction Type:Provider Instructions for Treatment How to access health informa tion online Indication:Nonsmoker Start:30-Sep-2019 Instruction Type:Patient Education How to access health informa tion online - Detail Indication:Nonsmoker Start:30-Sep-2019 Instruction Type:Patient Education Patient Instructions Indication:Nonsmoker Start:30-Sep-2019 Instruction Type:Provider Instructions for Treatment How to access health informa tion online Indication:Encounter for annual general medical examination with abnormal findings in adult Start:11-Feb-2019 Instruction Type:Patient Education How to access health informa tion online - Detail Indication:Encounter for annual general medical examination with abnormal findings in adult Start:11-Feb-2019 Instruction Type:Patient Education Patient Instructions Indication:Encounter for annual general medical examination with abnormal findings in adult Start:11-Feb-2019 Instruction Type:Provider Instructions for Treatment How to access health informa tion online Indication:Post-nasal drainage Start:27-Nov-2018 Instruction Type:Patient Education How to access health informa tion online - Detail Indication:Post-nasal drainage Start:27-Nov-2018 Instruction Type:Patient Education Patient Instructions Indication:Post-nasal drainage Start:27-Nov-2018 Instruction Type:Provider Instructions for Treatment How to access health informa tion online Indication:Overactive bladder Start:08-Sep-2018 Instruction Type:Patient Education How to access health informa tion online - Detail Indication:Overactive bladder Start:08-Sep-2018 Instruction Type:Patient Education Patient Instructions Indication:Overactive bladder Start:08-Sep-2018 Instruction Type:Provider Instructions for Treatment How to access health informa tion online Indication:BMI 31.0-31.9,adult Start:05-May-2018 Instruction Type:Patient Education How to access health informa tion online - Detail Indication:BMI 31.0-31.9,adult Start:05-May-2018 Instruction Type:Patient Education Patient Instructions Indication:BMI 31.0-31.9,adult Start:05-May-2018 Instruction Type:Provider Instructions for Treatment How to access health informa tion online Indication:Overactive bladder Start:17-Mar-2018 Instruction Type:Patient Education How to access health informa tion online - Detail Indication:Overactive bladder Start:17-Mar-2018 Instruction Type:Patient Education Patient Instructions Indication:Overactive bladder Start:17-Mar-2018 Instruction Type:Provider Instructions for Treatment How to access health informa tion online Indication:Screening for HPV (human papillomavirus) (Renamed from Encounter for screening for human papillomavirus (HPV)) Start:14-Jan-2018 Instruction Type:Patient Education How to access health informa tion online - Detail Indication:Screening for HPV (human papillomavirus) (Renamed from Encounter for screening for human papillomavirus (HPV)) Start:14-Jan-2018 Instruction Type:Patient Education Patient Instructions Indication:Screening for HPV (human papillomavirus) (Renamed from Encounter for screening for human papillomavirus (HPV)) Start:14-Jan-2018 Instruction Type:Provider Instructions for Treatment [facility]; [facility] Work Phone: Instructions* Name Dates Details Patient Instructions Indication:Encounter for annual general medical examination with abnormal findings in adult Start:19-Jan-2021 Instruction Type:Provider Instructions for Treatment How to Access Health Informa tion Online using Patient Portal and [employer] Apps Indication:Encounter for annual general medical examination with abnormal findings in adult Start:19-Jan-2021 Instruction Type:Patient Education Patient Instructions Indication:Dog bite Start:08-Nov-2020 Instruction Type:Provider Instructions for Treatment How to Access Health Informa tion Online using Patient Portal and [employer] Apps Indication:Dog bite Start:08-Nov-2020 Instruction Type:Patient Education Patient Instructions Indication:BMI 31.0-31.9,adult Start:01-Nov-2020 Instruction Type:Provider Instructions for Treatment How to Access Health Informa tion Online using Patient Portal and [employer] Apps Indication:BMI 31.0-31.9,adult Start:01-Nov-2020 Instruction Type:Patient Education Patient Instructions Indication:Encounter for annual general medical examination with abnormal findings in adult Start:15-Aug-2020 Instruction Type:Provider Instructions for Treatment How to Access Health Informa tion Online using Patient Portal and [employer] Apps Indication:Encounter for annual general medical examination with abnormal findings in adult Start:15-Aug-2020 Instruction Type:Patient Education Patient Instructions Indication:BMI 32.0-32.9,adult Start:06-May-2020 Instruction Type:Provider Instructions for Treatment How to Access Health Informa tion Online using Patient Portal and [employer] Apps Indication:BMI 32.0-32.9,adult Start:06-May-2020 Instruction Type:Patient Education How to Access Health Informa tion Online using Patient Portal and [employer] Apps Indication:Encounter for annual general medical examination with abnormal findings in adult Start:15-Feb-2020 Instruction Type:Patient Education Patient Instructions Indication:Encounter for annual general medical examination with abnormal findings in adult Start:15-Feb-2020 Instruction Type:Provider Instructions for Treatment How to access health informa tion online Indication:Hypertension, benign Start:21-Dec-2019 Instruction Type:Patient Education How to access health informa tion online - Detail Indication:Hypertension, benign Start:21-Dec-2019 Instruction Type:Patient Education Patient Instructions Indication:Hypertension, benign Start:21-Dec-2019 Instruction Type:Provider Instructions for Treatment How to access health informa tion online Indication:Nonsmoker Start:30-Sep-2019 Instruction Type:Patient Education How to access health informa tion online - Detail Indication:Nonsmoker Start:30-Sep-2019 Instruction Type:Patient Education Patient Instructions Indication:Nonsmoker Start:30-Sep-2019 Instruction Type:Provider Instructions for Treatment How to access health informa tion online Indication:Encounter for annual general medical examination with abnormal findings in adult Start:11-Feb-2019 Instruction Type:Patient Education How to access health informa tion online - Detail Indication:Encounter for annual general medical examination with abnormal findings in adult Start:11-Feb-2019 Instruction Type:Patient Education Patient Instructions Indication:Encounter for annual general medical examination with abnormal findings in adult Start:11-Feb-2019 Instruction Type:Provider Instructions for Treatment How to access health informa tion online Indication:Post-nasal drainage Start:27-Nov-2018 Instruction Type:Patient Education How to access health informa tion online - Detail Indication:Post-nasal drainage Start:27-Nov-2018 Instruction Type:Patient Education Patient Instructions Indication:Post-nasal drainage Start:27-Nov-2018 Instruction Type:Provider Instructions for Treatment How to access health informa tion online Indication:Overactive bladder Start:08-Sep-2018 Instruction Type:Patient Education How to access health informa tion online - Detail Indication:Overactive bladder Start:08-Sep-2018 Instruction Type:Patient Education Patient Instructions Indication:Overactive bladder Start:08-Sep-2018 Instruction Type:Provider Instructions for Treatment How to access health informa tion online Indication:BMI 31.0-31.9,adult Start:05-May-2018 Instruction Type:Patient Education How to access health informa tion online - Detail Indication:BMI 31.0-31.9,adult Start:05-May-2018 Instruction Type:Patient Education Patient Instructions Indication:BMI 31.0-31.9,adult Start:05-May-2018 Instruction Type:Provider Instructions for Treatment How to access health informa tion online Indication:Overactive bladder Start:17-Mar-2018 Instruction Type:Patient Education How to access health informa tion online - Detail Indication:Overactive bladder Start:17-Mar-2018 Instruction Type:Patient Education Patient Instructions Indication:Overactive bladder Start:17-Mar-2018 Instruction Type:Provider Instructions for Treatment How to access health informa tion online Indication:Screening for HPV (human papillomavirus) (Renamed from Encounter for screening for human papillomavirus (HPV)) Start:14-Jan-2018 Instruction Type:Patient Education How to access health informa tion online - Detail Indication:Screening for HPV (human papillomavirus) (Renamed from Encounter for screening for human papillomavirus (HPV)) Start:14-Jan-2018 Instruction Type:Patient Education Patient Instructions Indication:Screening for HPV (human papillomavirus) (Renamed from Encounter for screening for human papillomavirus (HPV)) Start:14-Jan-2018 Instruction Type:Provider Instructions for Treatment [facility]; [facility] Work Phone: Instructions* Name Dates Details Patient Instructions Indication:Encounter for annual general medical examination with abnormal findings in adult Start:19-Jan-2021 Instruction Type:Provider Instructions for Treatment How to Access Health Informa tion Online using Patient Portal and [employer] Apps Indication:Encounter for annual general medical examination with abnormal findings in adult Start:19-Jan-2021 Instruction Type:Patient Education Patient Instructions Indication:Dog bite Start:08-Nov-2020 Instruction Type:Provider Instructions for Treatment How to Access Health Informa tion Online using Patient Portal and [employer] Apps Indication:Dog bite Start:08-Nov-2020 Instruction Type:Patient Education Patient Instructions Indication:BMI 31.0-31.9,adult Start:01-Nov-2020 Instruction Type:Provider Instructions for Treatment How to Access Health Informa tion Online using Patient Portal and [employer] Apps Indication:BMI 31.0-31.9,adult Start:01-Nov-2020 Instruction Type:Patient Education Patient Instructions Indication:Encounter for annual general medical examination with abnormal findings in adult Start:15-Aug-2020 Instruction Type:Provider Instructions for Treatment How to Access Health Informa tion Online using Patient Portal and [employer] Apps Indication:Encounter for annual general medical examination with abnormal findings in adult Start:15-Aug-2020 Instruction Type:Patient Education Patient Instructions Indication:BMI 32.0-32.9,adult Start:06-May-2020 Instruction Type:Provider Instructions for Treatment How to Access Health Informa tion Online using Patient Portal and [employer] Apps Indication:BMI 32.0-32.9,adult Start:06-May-2020 Instruction Type:Patient Education How to Access Health Informa tion Online using Patient Portal and [employer] Apps Indication:Encounter for annual general medical examination with abnormal findings in adult Start:15-Feb-2020 Instruction Type:Patient Education Patient Instructions Indication:Encounter for annual general medical examination with abnormal findings in adult Start:15-Feb-2020 Instruction Type:Provider Instructions for Treatment How to access health informa tion online Indication:Hypertension, benign Start:21-Dec-2019 Instruction Type:Patient Education How to access health informa tion online - Detail Indication:Hypertension, benign Start:21-Dec-2019 Instruction Type:Patient Education Patient Instructions Indication:Hypertension, benign Start:21-Dec-2019 Instruction Type:Provider Instructions for Treatment How to access health informa tion online Indication:Nonsmoker Start:30-Sep-2019 Instruction Type:Patient Education How to access health informa tion online - Detail Indication:Nonsmoker Start:30-Sep-2019 Instruction Type:Patient Education Patient Instructions Indication:Nonsmoker Start:30-Sep-2019 Instruction Type:Provider Instructions for Treatment How to access health informa tion online Indication:Encounter for annual general medical examination with abnormal findings in adult Start:11-Feb-2019 Instruction Type:Patient Education How to access health informa tion online - Detail Indication:Encounter for annual general medical examination with abnormal findings in adult Start:11-Feb-2019 Instruction Type:Patient Education Patient Instructions Indication:Encounter for annual general medical examination with abnormal findings in adult Start:11-Feb-2019 Instruction Type:Provider Instructions for Treatment How to access health informa tion online Indication:Post-nasal drainage Start:27-Nov-2018 Instruction Type:Patient Education How to access health informa tion online - Detail Indication:Post-nasal drainage Start:27-Nov-2018 Instruction Type:Patient Education Patient Instructions Indication:Post-nasal drainage Start:27-Nov-2018 Instruction Type:Provider Instructions for Treatment How to access health informa tion online Indication:Overactive bladder Start:08-Sep-2018 Instruction Type:Patient Education How to access health informa tion online - Detail Indication:Overactive bladder Start:08-Sep-2018 Instruction Type:Patient Education Patient Instructions Indication:Overactive bladder Start:08-Sep-2018 Instruction Type:Provider Instructions for Treatment How to access health informa tion online Indication:BMI 31.0-31.9,adult Start:05-May-2018 Instruction Type:Patient Education How to access health informa tion online - Detail Indication:BMI 31.0-31.9,adult Start:05-May-2018 Instruction Type:Patient Education Patient Instructions Indication:BMI 31.0-31.9,adult Start:05-May-2018 Instruction Type:Provider Instructions for Treatment How to access health informa tion online Indication:Overactive bladder Start:17-Mar-2018 Instruction Type:Patient Education How to access health informa tion online - Detail Indication:Overactive bladder Start:17-Mar-2018 Instruction Type:Patient Education Patient Instructions Indication:Overactive bladder Start:17-Mar-2018 Instruction Type:Provider Instructions for Treatment How to access health informa tion online Indication:Screening for HPV (human papillomavirus) (Renamed from Encounter for screening for human papillomavirus (HPV)) Start:14-Jan-2018 Instruction Type:Patient Education How to access health informa tion online - Detail Indication:Screening for HPV (human papillomavirus) (Renamed from Encounter for screening for human papillomavirus (HPV)) Start:14-Jan-2018 Instruction Type:Patient Education Patient Instructions Indication:Screening for HPV (human papillomavirus) (Renamed from Encounter for screening for human papillomavirus (HPV)) Start:14-Jan-2018 Instruction Type:Provider Instructions for Treatment [facility]; [facility] Work Phone: Instructions* Name Dates Details Patient Instructions Indication:Former smoker Start:18-Jul-2021 Instruction Type:Provider Instructions for Treatment How to Access Health Informa tion Online using Patient Portal and [employer] Apps Indication:Former smoker Start:18-Jul-2021 Instruction Type:Patient Education Patient Instructions Indication:Encounter for annual general medical examination with abnormal findings in adult Start:19-Jan-2021 Instruction Type:Provider Instructions for Treatment How to Access Health Informa tion Online using Patient Portal and [employer] Apps Indication:Encounter for annual general medical examination with abnormal findings in adult Start:19-Jan-2021 Instruction Type:Patient Education Patient Instructions Indication:Dog bite Start:08-Nov-2020 Instruction Type:Provider Instructions for Treatment How to Access Health Informa tion Online using Patient Portal and [employer] Apps Indication:Dog bite Start:08-Nov-2020 Instruction Type:Patient Education Patient Instructions Indication:BMI 31.0-31.9,adult Start:01-Nov-2020 Instruction Type:Provider Instructions for Treatment How to Access Health Informa tion Online using Patient Portal and [employer] Apps Indication:BMI 31.0-31.9,adult Start:01-Nov-2020 Instruction Type:Patient Education Patient Instructions Indication:Encounter for annual general medical examination with abnormal findings in adult Start:15-Aug-2020 Instruction Type:Provider Instructions for Treatment How to Access Health Informa tion Online using Patient Portal and [employer] Apps Indication:Encounter for annual general medical examination with abnormal findings in adult Start:15-Aug-2020 Instruction Type:Patient Education Patient Instructions Indication:BMI 32.0-32.9,adult Start:06-May-2020 Instruction Type:Provider Instructions for Treatment How to Access Health Informa tion Online using Patient Portal and [employer] Apps Indication:BMI 32.0-32.9,adult Start:06-May-2020 Instruction Type:Patient Education How to Access Health Informa tion Online using Patient Portal and [employer] Apps Indication:Encounter for annual general medical examination with abnormal findings in adult Start:15-Feb-2020 Instruction Type:Patient Education Patient Instructions Indication:Encounter for annual general medical examination with abnormal findings in adult Start:15-Feb-2020 Instruction Type:Provider Instructions for Treatment How to access health informa tion online Indication:Hypertension, benign Start:21-Dec-2019 Instruction Type:Patient Education How to access health informa tion online - Detail Indication:Hypertension, benign Start:21-Dec-2019 Instruction Type:Patient Education Patient Instructions Indication:Hypertension, benign Start:21-Dec-2019 Instruction Type:Provider Instructions for Treatment How to access health informa tion online Indication:Nonsmoker Start:30-Sep-2019 Instruction Type:Patient Education How to access health informa tion online - Detail Indication:Nonsmoker Start:30-Sep-2019 Instruction Type:Patient Education Patient Instructions Indication:Nonsmoker Start:30-Sep-2019 Instruction Type:Provider Instructions for Treatment How to access health informa tion online Indication:Encounter for annual general medical examination with abnormal findings in adult Start:11-Feb-2019 Instruction Type:Patient Education How to access health informa tion online - Detail Indication:Encounter for annual general medical examination with abnormal findings in adult Start:11-Feb-2019 Instruction Type:Patient Education Patient Instructions Indication:Encounter for annual general medical examination with abnormal findings in adult Start:11-Feb-2019 Instruction Type:Provider Instructions for Treatment How to access health informa tion online Indication:Post-nasal drainage Start:27-Nov-2018 Instruction Type:Patient Education How to access health informa tion online - Detail Indication:Post-nasal drainage Start:27-Nov-2018 Instruction Type:Patient Education Patient Instructions Indication:Post-nasal drainage Start:27-Nov-2018 Instruction Type:Provider Instructions for Treatment How to access health informa tion online Indication:Overactive bladder Start:08-Sep-2018 Instruction Type:Patient Education How to access health informa tion online - Detail Indication:Overactive bladder Start:08-Sep-2018 Instruction Type:Patient Education Patient Instructions Indication:Overactive bladder Start:08-Sep-2018 Instruction Type:Provider Instructions for Treatment How to access health informa tion online Indication:BMI 31.0-31.9,adult Start:05-May-2018 Instruction Type:Patient Education How to access health informa tion online - Detail Indication:BMI 31.0-31.9,adult Start:05-May-2018 Instruction Type:Patient Education Patient Instructions Indication:BMI 31.0-31.9,adult Start:05-May-2018 Instruction Type:Provider Instructions for Treatment How to access health informa tion online Indication:Overactive bladder Start:17-Mar-2018 Instruction Type:Patient Education How to access health informa tion online - Detail Indication:Overactive bladder Start:17-Mar-2018 Instruction Type:Patient Education Patient Instructions Indication:Overactive bladder Start:17-Mar-2018 Instruction Type:Provider Instructions for Treatment How to access health informa tion online Indication:Screening for HPV (human papillomavirus) (Renamed from Encounter for screening for human papillomavirus (HPV)) Start:14-Jan-2018 Instruction Type:Patient Education How to access health informa tion online - Detail Indication:Screening for HPV (human papillomavirus) (Renamed from Encounter for screening for human papillomavirus (HPV)) Start:14-Jan-2018 Instruction Type:Patient Education Patient Instructions Indication:Screening for HPV (human papillomavirus) (Renamed from Encounter for screening for human papillomavirus (HPV)) Start:14-Jan-2018 Instruction Type:Provider Instructions for Treatment [facility]; [facility] Work Phone: Instructions* Name Dates Details Patient Instructions Indication:Former smoker Start:18-Jul-2021 Instruction Type:Provider Instructions for Treatment How to Access Health Informa tion Online using Patient Portal and [employer] Apps Indication:Former smoker Start:18-Jul-2021 Instruction Type:Patient Education Patient Instructions Indication:Encounter for annual general medical examination with abnormal findings in adult Start:19-Jan-2021 Instruction Type:Provider Instructions for Treatment How to Access Health Informa tion Online using Patient Portal and [employer] Apps Indication:Encounter for annual general medical examination with abnormal findings in adult Start:19-Jan-2021 Instruction Type:Patient Education Patient Instructions Indication:Dog bite Start:08-Nov-2020 Instruction Type:Provider Instructions for Treatment How to Access Health Informa tion Online using Patient Portal and [employer] Apps Indication:Dog bite Start:08-Nov-2020 Instruction Type:Patient Education Patient Instructions Indication:BMI 31.0-31.9,adult Start:01-Nov-2020 Instruction Type:Provider Instructions for Treatment How to Access Health Informa tion Online using Patient Portal and [employer] Indication:BMI 31.0-31.9,adult Start:01-Nov-2020 Instruction Type:Patient Education Patient Instructions Indication:Encounter for annual general medical examination with abnormal findings in adult Start:15-Aug-2020 Instruction Type:Provider Instructions for Treatment How to Access Health Informa tion Online using Patient Portal and [employer] Apps Indication:Encounter for annual general medical examination with abnormal findings in adult Start:15-Aug-2020 Instruction Type:Patient Education Patient Instructions Indication:BMI 32.0-32.9,adult Start:06-May-2020 Instruction Type:Provider Instructions for Treatment How to Access Health Informa tion Online using Patient Portal and [employer] Apps Indication:BMI 32.0-32.9,adult Start:06-May-2020 Instruction Type:Patient Education How to Access Health Informa tion Online using Patient Portal and [employer] Apps Indication:Encounter for annual general medical examination with abnormal findings in adult Start:15-Feb-2020 Instruction Type:Patient Education Patient Instructions Indication:Encounter for annual general medical examination with abnormal findings in adult Start:15-Feb-2020 Instruction Type:Provider Instructions for Treatment How to access health informa tion online Indication:Hypertension, benign Start:21-Dec-2019 Instruction Type:Patient Education How to access health informa tion online - Detail Indication:Hypertension, benign Start:21-Dec-2019 Instruction Type:Patient Education Patient Instructions Indication:Hypertension, benign Start:21-Dec-2019 Instruction Type:Provider Instructions for Treatment How to access health informa tion online Indication:Nonsmoker Start:30-Sep-2019 Instruction Type:Patient Education How to access health informa tion online - Detail Indication:Nonsmoker Start:30-Sep-2019 Instruction Type:Patient Education Patient Instructions Indication:Nonsmoker Start:30-Sep-2019 Instruction Type:Provider Instructions for Treatment How to access health informa tion online Indication:Encounter for annual general medical examination with abnormal findings in adult Start:11-Feb-2019 Instruction Type:Patient Education How to access health informa tion online - Detail Indication:Encounter for annual general medical examination with abnormal findings in adult Start:11-Feb-2019 Instruction Type:Patient Education Patient Instructions Indication:Encounter for annual general medical examination with abnormal findings in adult Start:11-Feb-2019 Instruction Type:Provider Instructions for Treatment How to access health informa tion online Indication:Post-nasal drainage Start:27-Nov-2018 Instruction Type:Patient Education How to access health informa tion online - Detail Indication:Post-nasal drainage Start:27-Nov-2018 Instruction Type:Patient Education Patient Instructions Indication:Post-nasal drainage Start:27-Nov-2018 Instruction Type:Provider Instructions for Treatment How to access health informa tion online Indication:Overactive bladder Start:08-Sep-2018 Instruction Type:Patient Education How to access health informa tion online - Detail Indication:Overactive bladder Start:08-Sep-2018 Instruction Type:Patient Education Patient Instructions Indication:Overactive bladder Start:08-Sep-2018 Instruction Type:Provider Instructions for Treatment How to access health informa tion online Indication:BMI 31.0-31.9,adult Start:05-May-2018 Instruction Type:Patient Education How to access health informa tion online - Detail Indication:BMI 31.0-31.9,adult Start:05-May-2018 Instruction Type:Patient Education Patient Instructions Indication:BMI 31.0-31.9,adult Start:05-May-2018 Instruction Type:Provider Instructions for Treatment How to access health informa tion online Indication:Overactive bladder Start:17-Mar-2018 Instruction Type:Patient Education How to access health informa tion online - Detail Indication:Overactive bladder Start:17-Mar-2018 Instruction Type:Patient Education Patient Instructions Indication:Overactive bladder Start:17-Mar-2018 Instruction Type:Provider Instructions for Treatment How to access health informa tion online Indication:Screening for HPV (human papillomavirus) (Renamed from Encounter for screening for human papillomavirus (HPV)) Start:14-Jan-2018 Instruction Type:Patient Education How to access health informa tion online - Detail Indication:Screening for HPV (human papillomavirus) (Renamed from Encounter for screening for human papillomavirus (HPV)) Start:14-Jan-2018 Instruction Type:Patient Education Patient Instructions Indication:Screening for HPV (human papillomavirus) (Renamed from Encounter for screening for human papillomavirus (HPV)) Start:14-Jan-2018 Instruction Type:Provider Instructions for Treatment [facility]; [facility] Work Phone: Instructions* Name Dates Details Patient Instructions Indication:BMI 29.0-29.9,adult Start:12-Sep-2021 Instruction Type:Provider Instructions for Treatment How to Access Health Informa tion Online using Patient Portal and [employer] Apps Indication:BMI 29.0-29.9,adult Start:12-Sep-2021 Instruction Type:Patient Education Patient Instructions Indication:Former smoker Start:18-Jul-2021 Instruction Type:Provider Instructions for Treatment How to Access Health Informa tion Online using Patient Portal and [employer] Indication:Former smoker Start:18-Jul-2021 Instruction Type:Patient Education Patient Instructions Indication:Encounter for annual general medical examination with abnormal findings in adult Start:19-Jan-2021 Instruction Type:Provider Instructions for Treatment How to Access Health Informa tion Online using Patient Portal and [employer] Indication:Encounter for annual general medical examination with abnormal findings in adult Start:19-Jan-2021 Instruction Type:Patient Education Patient Instructions Indication:Dog bite Start:08-Nov-2020 Instruction Type:Provider Instructions for Treatment How to Access Health Informa tion Online using Patient Portal and [employer] Indication:Dog bite Start:08-Nov-2020 Instruction Type:Patient Education Patient Instructions Indication:BMI 31.0-31.9,adult Start:01-Nov-2020 Instruction Type:Provider Instructions for Treatment How to Access Health Informa tion Online using Patient Portal and [employer] Indication:BMI 31.0-31.9,adult Start:01-Nov-2020 Instruction Type:Patient Education Patient Instructions Indication:Encounter for annual general medical examination with abnormal findings in adult Start:15-Aug-2020 Instruction Type:Provider Instructions for Treatment How to Access Health Informa tion Online using Patient Portal and [employer] Apps Indication:Encounter for annual general medical examination with abnormal findings in adult Start:15-Aug-2020 Instruction Type:Patient Education Patient Instructions Indication:BMI 32.0-32.9,adult Start:06-May-2020 Instruction Type:Provider Instructions for Treatment How to Access Health Informa tion Online using Patient Portal and [employer] Indication:BMI 32.0-32.9,adult Start:06-May-2020 Instruction Type:Patient Education How to Access Health Informa tion Online using Patient Portal and [employer] Apps Indication:Encounter for annual general medical examination with abnormal findings in adult Start:15-Feb-2020 Instruction Type:Patient Education Patient Instructions Indication:Encounter for annual general medical examination with abnormal findings in adult Start:15-Feb-2020 Instruction Type:Provider Instructions for Treatment How to access health informa tion online Indication:Hypertension, benign Start:21-Dec-2019 Instruction Type:Patient Education How to access health informa tion online - Detail Indication:Hypertension, benign Start:21-Dec-2019 Instruction Type:Patient Education Patient Instructions Indication:Hypertension, benign Start:21-Dec-2019 Instruction Type:Provider Instructions for Treatment How to access health informa tion online Indication:Nonsmoker Start:30-Sep-2019 Instruction Type:Patient Education How to access health informa tion online - Detail Indication:Nonsmoker Start:30-Sep-2019 Instruction Type:Patient Education Patient Instructions Indication:Nonsmoker Start:30-Sep-2019 Instruction Type:Provider Instructions for Treatment How to access health informa tion online Indication:Encounter for annual general medical examination with abnormal findings in adult Start:11-Feb-2019 Instruction Type:Patient Education How to access health informa tion online - Detail Indication:Encounter for annual general medical examination with abnormal findings in adult Start:11-Feb-2019 Instruction Type:Patient Education Patient Instructions Indication:Encounter for annual general medical examination with abnormal findings in adult Start:11-Feb-2019 Instruction Type:Provider Instructions for Treatment How to access health informa tion online Indication:Post-nasal drainage Start:27-Nov-2018 Instruction Type:Patient Education How to access health informa tion online - Detail Indication:Post-nasal drainage Start:27-Nov-2018 Instruction Type:Patient Education Patient Instructions Indication:Post-nasal drainage Start:27-Nov-2018 Instruction Type:Provider Instructions for Treatment How to access health informa tion online Indication:Overactive bladder Start:08-Sep-2018 Instruction Type:Patient Education How to access health informa tion online - Detail Indication:Overactive bladder Start:08-Sep-2018 Instruction Type:Patient Education Patient Instructions Indication:Overactive bladder Start:08-Sep-2018 Instruction Type:Provider Instructions for Treatment How to access health informa tion online Indication:BMI 31.0-31.9,adult Start:05-May-2018 Instruction Type:Patient Education How to access health informa tion online - Detail Indication:BMI 31.0-31.9,adult Start:05-May-2018 Instruction Type:Patient Education Patient Instructions Indication:BMI 31.0-31.9,adult Start:05-May-2018 Instruction Type:Provider Instructions for Treatment How to access health informa tion online Indication:Overactive bladder Start:17-Mar-2018 Instruction Type:Patient Education How to access health informa tion online - Detail Indication:Overactive bladder Start:17-Mar-2018 Instruction Type:Patient Education Patient Instructions Indication:Overactive bladder Start:17-Mar-2018 Instruction Type:Provider Instructions for Treatment How to access health informa tion online Indication:Screening for HPV (human papillomavirus) (Renamed from Encounter for screening for human papillomavirus (HPV)) Start:14-Jan-2018 Instruction Type:Patient Education How to access health informa tion online - Detail Indication:Screening for HPV (human papillomavirus) (Renamed from Encounter for screening for human papillomavirus (HPV)) Start:14-Jan-2018 Instruction Type:Patient Education Patient Instructions Indication:Screening for HPV (human papillomavirus) (Renamed from Encounter for screening for human papillomavirus (HPV)) Start:14-Jan-2018 Instruction Type:Provider Instructions for Treatment [facility]; [facility] Work Phone: Instructions* Name Dates Details Patient Instructions Indication:BMI 29.0-29.9,adult Start:12-Sep-2021 Instruction Type:Provider Instructions for Treatment How to Access Health Informa tion Online using Patient Portal and [employer] Indication:BMI 29.0-29.9,adult Start:12-Sep-2021 Instruction Type:Patient Education Patient Instructions Indication:Former smoker Start:18-Jul-2021 Instruction Type:Provider Instructions for Treatment How to Access Health Informa tion Online using Patient Portal and [employer] Indication:Former smoker Start:18-Jul-2021 Instruction Type:Patient Education Patient Instructions Indication:Encounter for annual general medical examination with abnormal findings in adult Start:19-Jan-2021 Instruction Type:Provider Instructions for Treatment How to Access Health Informa tion Online using Patient Portal and [employer] Indication:Encounter for annual general medical examination with abnormal findings in adult Start:19-Jan-2021 Instruction Type:Patient Education Patient Instructions Indication:Dog bite Start:08-Nov-2020 Instruction Type:Provider Instructions for Treatment How to Access Health Informa tion Online using Patient Portal and [employer] Indication:Dog bite Start:08-Nov-2020 Instruction Type:Patient Education Patient Instructions Indication:BMI 31.0-31.9,adult Start:01-Nov-2020 Instruction Type:Provider Instructions for Treatment How to Access Health Informa tion Online using Patient Portal and [employer] Indication:BMI 31.0-31.9,adult Start:01-Nov-2020 Instruction Type:Patient Education Patient Instructions Indication:Encounter for annual general medical examination with abnormal findings in adult Start:15-Aug-2020 Instruction Type:Provider Instructions for Treatment How to Access Health Informa tion Online using Patient Portal and [employer] Indication:Encounter for annual general medical examination with abnormal findings in adult Start:15-Aug-2020 Instruction Type:Patient Education Patient Instructions Indication:BMI 32.0-32.9,adult Start:06-May-2020 Instruction Type:Provider Instructions for Treatment How to Access Health Informa tion Online using Patient Portal and [employer] Indication:BMI 32.0-32.9,adult Start:06-May-2020 Instruction Type:Patient Education How to Access Health Informa tion Online using Patient Portal and [employer] Apps Indication:Encounter for annual general medical examination with abnormal findings in adult Start:15-Feb-2020 Instruction Type:Patient Education Patient Instructions Indication:Encounter for annual general medical examination with abnormal findings in adult Start:15-Feb-2020 Instruction Type:Provider Instructions for Treatment How to access health informa tion online Indication:Hypertension, benign Start:21-Dec-2019 Instruction Type:Patient Education How to access health informa tion online - Detail Indication:Hypertension, benign Start:21-Dec-2019 Instruction Type:Patient Education Patient Instructions Indication:Hypertension, benign Start:21-Dec-2019 Instruction Type:Provider Instructions for Treatment How to access health informa tion online Indication:Nonsmoker Start:30-Sep-2019 Instruction Type:Patient Education How to access health informa tion online - Detail Indication:Nonsmoker Start:30-Sep-2019 Instruction Type:Patient Education Patient Instructions Indication:Nonsmoker Start:30-Sep-2019 Instruction Type:Provider Instructions for Treatment How to access health informa tion online Indication:Encounter for annual general medical examination with abnormal findings in adult Start:11-Feb-2019 Instruction Type:Patient Education How to access health informa tion online - Detail Indication:Encounter for annual general medical examination with abnormal findings in adult Start:11-Feb-2019 Instruction Type:Patient Education Patient Instructions Indication:Encounter for annual general medical examination with abnormal findings in adult Start:11-Feb-2019 Instruction Type:Provider Instructions for Treatment How to access health informa tion online Indication:Post-nasal drainage Start:27-Nov-2018 Instruction Type:Patient Education How to access health informa tion online - Detail Indication:Post-nasal drainage Start:27-Nov-2018 Instruction Type:Patient Education Patient Instructions Indication:Post-nasal drainage Start:27-Nov-2018 Instruction Type:Provider Instructions for Treatment How to access health informa tion online Indication:Overactive bladder Start:08-Sep-2018 Instruction Type:Patient Education How to access health informa tion online - Detail Indication:Overactive bladder Start:08-Sep-2018 Instruction Type:Patient Education Patient Instructions Indication:Overactive bladder Start:08-Sep-2018 Instruction Type:Provider Instructions for Treatment How to access health informa tion online Indication:BMI 31.0-31.9,adult Start:05-May-2018 Instruction Type:Patient Education How to access health informa tion online - Detail Indication:BMI 31.0-31.9,adult Start:05-May-2018 Instruction Type:Patient Education Patient Instructions Indication:BMI 31.0-31.9,adult Start:05-May-2018 Instruction Type:Provider Instructions for Treatment How to access health informa tion online Indication:Overactive bladder Start:17-Mar-2018 Instruction Type:Patient Education How to access health informa tion online - Detail Indication:Overactive bladder Start:17-Mar-2018 Instruction Type:Patient Education Patient Instructions Indication:Overactive bladder Start:17-Mar-2018 Instruction Type:Provider Instructions for Treatment How to access health informa tion online Indication:Screening for HPV (human papillomavirus) (Renamed from Encounter for screening for human papillomavirus (HPV)) Start:14-Jan-2018 Instruction Type:Patient Education How to access health informa tion online - Detail Indication:Screening for HPV (human papillomavirus) (Renamed from Encounter for screening for human papillomavirus (HPV)) Start:14-Jan-2018 Instruction Type:Patient Education Patient Instructions Indication:Screening for HPV (human papillomavirus) (Renamed from Encounter for screening for human papillomavirus (HPV)) Start:14-Jan-2018 Instruction Type:Provider Instructions for Treatment [facility]; [facility] Work Phone: Instructions* Name Dates Details Patient Instructions Indication:BMI 29.0-29.9,adult Start:28-Sep-2021 Instruction Type:Provider Instructions for Treatment How to Access Health Informa tion Online using Patient Portal and [employer] Indication:BMI 29.0-29.9,adult Start:28-Sep-2021 Instruction Type:Patient Education Patient Instructions Indication:BMI 29.0-29.9,adult Start:12-Sep-2021 Instruction Type:Provider Instructions for Treatment How to Access Health Informa tion Online using Patient Portal and [employer] Apps Indication:BMI 29.0-29.9,adult Start:12-Sep-2021 Instruction Type:Patient Education Patient Instructions Indication:Former smoker Start:18-Jul-2021 Instruction Type:Provider Instructions for Treatment How to Access Health Informa tion Online using Patient Portal and [employer] Indication:Former smoker Start:18-Jul-2021 Instruction Type:Patient Education Patient Instructions Indication:Encounter for annual general medical examination with abnormal findings in adult Start:19-Jan-2021 Instruction Type:Provider Instructions for Treatment How to Access Health Informa tion Online using Patient Portal and [employer] Apps Indication:Encounter for annual general medical examination with abnormal findings in adult Start:19-Jan-2021 Instruction Type:Patient Education Patient Instructions Indication:Dog bite Start:08-Nov-2020 Instruction Type:Provider Instructions for Treatment How to Access Health Informa tion Online using Patient Portal and [employer] Indication:Dog bite Start:08-Nov-2020 Instruction Type:Patient Education Patient Instructions Indication:BMI 31.0-31.9,adult Start:01-Nov-2020 Instruction Type:Provider Instructions for Treatment How to Access Health Informa tion Online using Patient Portal and [employer] Apps Indication:BMI 31.0-31.9,adult Start:01-Nov-2020 Instruction Type:Patient Education Patient Instructions Indication:Encounter for annual general medical examination with abnormal findings in adult Start:15-Aug-2020 Instruction Type:Provider Instructions for Treatment How to Access Health Informa tion Online using Patient Portal and [employer] Apps Indication:Encounter for annual general medical examination with abnormal findings in adult Start:15-Aug-2020 Instruction Type:Patient Education Patient Instructions Indication:BMI 32.0-32.9,adult Start:06-May-2020 Instruction Type:Provider Instructions for Treatment How to Access Health Informa tion Online using Patient Portal and [employer] Indication:BMI 32.0-32.9,adult Start:06-May-2020 Instruction Type:Patient Education How to Access Health Informa tion Online using Patient Portal and [employer] Apps Indication:Encounter for annual general medical examination with abnormal findings in adult Start:15-Feb-2020 Instruction Type:Patient Education Patient Instructions Indication:Encounter for annual general medical examination with abnormal findings in adult Start:15-Feb-2020 Instruction Type:Provider Instructions for Treatment How to access health informa tion online Indication:Hypertension, benign Start:21-Dec-2019 Instruction Type:Patient Education How to access health informa tion online - Detail Indication:Hypertension, benign Start:21-Dec-2019 Instruction Type:Patient Education Patient Instructions Indication:Hypertension, benign Start:21-Dec-2019 Instruction Type:Provider Instructions for Treatment How to access health informa tion online Indication:Nonsmoker Start:30-Sep-2019 Instruction Type:Patient Education How to access health informa tion online - Detail Indication:Nonsmoker Start:30-Sep-2019 Instruction Type:Patient Education Patient Instructions Indication:Nonsmoker Start:30-Sep-2019 Instruction Type:Provider Instructions for Treatment How to access health informa tion online Indication:Encounter for annual general medical examination with abnormal findings in adult Start:11-Feb-2019 Instruction Type:Patient Education How to access health informa tion online - Detail Indication:Encounter for annual general medical examination with abnormal findings in adult Start:11-Feb-2019 Instruction Type:Patient Education Patient Instructions Indication:Encounter for annual general medical examination with abnormal findings in adult Start:11-Feb-2019 Instruction Type:Provider Instructions for Treatment How to access health informa tion online Indication:Post-nasal drainage Start:27-Nov-2018 Instruction Type:Patient Education How to access health informa tion online - Detail Indication:Post-nasal drainage Start:27-Nov-2018 Instruction Type:Patient Education Patient Instructions Indication:Post-nasal drainage Start:27-Nov-2018 Instruction Type:Provider Instructions for Treatment How to access health informa tion online Indication:Overactive bladder Start:08-Sep-2018 Instruction Type:Patient Education How to access health informa tion online - Detail Indication:Overactive bladder Start:08-Sep-2018 Instruction Type:Patient Education Patient Instructions Indication:Overactive bladder Start:08-Sep-2018 Instruction Type:Provider Instructions for Treatment How to access health informa tion online Indication:BMI 31.0-31.9,adult Start:05-May-2018 Instruction Type:Patient Education How to access health informa tion online - Detail Indication:BMI 31.0-31.9,adult Start:05-May-2018 Instruction Type:Patient Education Patient Instructions Indication:BMI 31.0-31.9,adult Start:05-May-2018 Instruction Type:Provider Instructions for Treatment How to access health informa tion online Indication:Overactive bladder Start:17-Mar-2018 Instruction Type:Patient Education How to access health informa tion online - Detail Indication:Overactive bladder Start:17-Mar-2018 Instruction Type:Patient Education Patient Instructions Indication:Overactive bladder Start:17-Mar-2018 Instruction Type:Provider Instructions for Treatment How to access health informa tion online Indication:Screening for HPV (human papillomavirus) (Renamed from Encounter for screening for human papillomavirus (HPV)) Start:14-Jan-2018 Instruction Type:Patient Education How to access health informa tion online - Detail Indication:Screening for HPV (human papillomavirus) (Renamed from Encounter for screening for human papillomavirus (HPV)) Start:14-Jan-2018 Instruction Type:Patient Education Patient Instructions Indication:Screening for HPV (human papillomavirus) (Renamed from Encounter for screening for human papillomavirus (HPV)) Start:14-Jan-2018 Instruction Type:Provider Instructions for Treatment [facility] Work Phone: Instructions* Name Dates Details Patient Instructions Indication:BMI 29.0-29.9,adult Start:28-Sep-2021 Instruction Type:Provider Instructions for Treatment How to Access Health Informa tion Online using Patient Portal and [employer] Indication:BMI 29.0-29.9,adult Start:28-Sep-2021 Instruction Type:Patient Education Patient Instructions Indication:BMI 29.0-29.9,adult Start:12-Sep-2021 Instruction Type:Provider Instructions for Treatment How to Access Health Informa tion Online using Patient Portal and [employer] Indication:BMI 29.0-29.9,adult Start:12-Sep-2021 Instruction Type:Patient Education Patient Instructions Indication:Former smoker Start:18-Jul-2021 Instruction Type:Provider Instructions for Treatment How to Access Health Informa tion Online using Patient Portal and [employer] Indication:Former smoker Start:18-Jul-2021 Instruction Type:Patient Education Patient Instructions Indication:Encounter for annual general medical examination with abnormal findings in adult Start:19-Jan-2021 Instruction Type:Provider Instructions for Treatment How to Access Health Informa tion Online using Patient Portal and [employer] Indication:Encounter for annual general medical examination with abnormal findings in adult Start:19-Jan-2021 Instruction Type:Patient Education Patient Instructions Indication:Dog bite Start:08-Nov-2020 Instruction Type:Provider Instructions for Treatment How to Access Health Informa tion Online using Patient Portal and [employer] Indication:Dog bite Start:08-Nov-2020 Instruction Type:Patient Education Patient Instructions Indication:BMI 31.0-31.9,adult Start:01-Nov-2020 Instruction Type:Provider Instructions for Treatment How to Access Health Informa tion Online using Patient Portal and [employer] Indication:BMI 31.0-31.9,adult Start:01-Nov-2020 Instruction Type:Patient Education Patient Instructions Indication:Encounter for annual general medical examination with abnormal findings in adult Start:15-Aug-2020 Instruction Type:Provider Instructions for Treatment How to Access Health Informa tion Online using Patient Portal and [employer] Indication:Encounter for annual general medical examination with abnormal findings in adult Start:15-Aug-2020 Instruction Type:Patient Education Patient Instructions Indication:BMI 32.0-32.9,adult Start:06-May-2020 Instruction Type:Provider Instructions for Treatment How to Access Health Informa tion Online using Patient Portal and [employer] Indication:BMI 32.0-32.9,adult Start:06-May-2020 Instruction Type:Patient Education How to Access Health Informa tion Online using Patient Portal and [employer] Apps Indication:Encounter for annual general medical examination with abnormal findings in adult Start:15-Feb-2020 Instruction Type:Patient Education Patient Instructions Indication:Encounter for annual general medical examination with abnormal findings in adult Start:15-Feb-2020 Instruction Type:Provider Instructions for Treatment How to access health informa tion online Indication:Hypertension, benign Start:21-Dec-2019 Instruction Type:Patient Education How to access health informa tion online - Detail Indication:Hypertension, benign Start:21-Dec-2019 Instruction Type:Patient Education Patient Instructions Indication:Hypertension, benign Start:21-Dec-2019 Instruction Type:Provider Instructions for Treatment How to access health informa tion online Indication:Nonsmoker Start:30-Sep-2019 Instruction Type:Patient Education How to access health informa tion online - Detail Indication:Nonsmoker Start:30-Sep-2019 Instruction Type:Patient Education Patient Instructions Indication:Nonsmoker Start:30-Sep-2019 Instruction Type:Provider Instructions for Treatment How to access health informa tion online Indication:Encounter for annual general medical examination with abnormal findings in adult Start:11-Feb-2019 Instruction Type:Patient Education How to access health informa tion online - Detail Indication:Encounter for annual general medical examination with abnormal findings in adult Start:11-Feb-2019 Instruction Type:Patient Education Patient Instructions Indication:Encounter for annual general medical examination with abnormal findings in adult Start:11-Feb-2019 Instruction Type:Provider Instructions for Treatment How to access health informa tion online Indication:Post-nasal drainage Start:27-Nov-2018 Instruction Type:Patient Education How to access health informa tion online - Detail Indication:Post-nasal drainage Start:27-Nov-2018 Instruction Type:Patient Education Patient Instructions Indication:Post-nasal drainage Start:27-Nov-2018 Instruction Type:Provider Instructions for Treatment How to access health informa tion online Indication:Overactive bladder Start:08-Sep-2018 Instruction Type:Patient Education How to access health informa tion online - Detail Indication:Overactive bladder Start:08-Sep-2018 Instruction Type:Patient Education Patient Instructions Indication:Overactive bladder Start:08-Sep-2018 Instruction Type:Provider Instructions for Treatment How to access health informa tion online Indication:BMI 31.0-31.9,adult Start:05-May-2018 Instruction Type:Patient Education How to access health informa tion online - Detail Indication:BMI 31.0-31.9,adult Start:05-May-2018 Instruction Type:Patient Education Patient Instructions Indication:BMI 31.0-31.9,adult Start:05-May-2018 Instruction Type:Provider Instructions for Treatment How to access health informa tion online Indication:Overactive bladder Start:17-Mar-2018 Instruction Type:Patient Education How to access health informa tion online - Detail Indication:Overactive bladder Start:17-Mar-2018 Instruction Type:Patient Education Patient Instructions Indication:Overactive bladder Start:17-Mar-2018 Instruction Type:Provider Instructions for Treatment How to access health informa tion online Indication:Screening for HPV (human papillomavirus) (Renamed from Encounter for screening for human papillomavirus (HPV)) Start:14-Jan-2018 Instruction Type:Patient Education How to access health informa tion online - Detail Indication:Screening for HPV (human papillomavirus) (Renamed from Encounter for screening for human papillomavirus (HPV)) Start:14-Jan-2018 Instruction Type:Patient Education Patient Instructions Indication:Screening for HPV (human papillomavirus) (Renamed from Encounter for screening for human papillomavirus (HPV)) Start:14-Jan-2018 Instruction Type:Provider Instructions for Treatment [facility]; [facility] Work Phone: Instructions* Name Dates Details Patient Instructions Indication:BMI 29.0-29.9,adult Start:28-Sep-2021 Instruction Type:Provider Instructions for Treatment How to Access Health Informa tion Online using Patient Portal and [employer] Indication:BMI 29.0-29.9,adult Start:28-Sep-2021 Instruction Type:Patient Education Patient Instructions Indication:BMI 29.0-29.9,adult Start:12-Sep-2021 Instruction Type:Provider Instructions for Treatment How to Access Health Informa tion Online using Patient Portal and [employer] Indication:BMI 29.0-29.9,adult Start:12-Sep-2021 Instruction Type:Patient Education Patient Instructions Indication:Former smoker Start:18-Jul-2021 Instruction Type:Provider Instructions for Treatment How to Access Health Informa tion Online using Patient Portal and [employer] Indication:Former smoker Start:18-Jul-2021 Instruction Type:Patient Education Patient Instructions Indication:Encounter for annual general medical examination with abnormal findings in adult Start:19-Jan-2021 Instruction Type:Provider Instructions for Treatment How to Access Health Informa tion Online using Patient Portal and [employer] Indication:Encounter for annual general medical examination with abnormal findings in adult Start:19-Jan-2021 Instruction Type:Patient Education Patient Instructions Indication:Dog bite Start:08-Nov-2020 Instruction Type:Provider Instructions for Treatment How to Access Health Informa tion Online using Patient Portal and [employer] Indication:Dog bite Start:08-Nov-2020 Instruction Type:Patient Education Patient Instructions Indication:BMI 31.0-31.9,adult Start:01-Nov-2020 Instruction Type:Provider Instructions for Treatment How to Access Health Informa tion Online using Patient Portal and [employer] Indication:BMI 31.0-31.9,adult Start:01-Nov-2020 Instruction Type:Patient Education Patient Instructions Indication:Encounter for annual general medical examination with abnormal findings in adult Start:15-Aug-2020 Instruction Type:Provider Instructions for Treatment How to Access Health Informa tion Online using Patient Portal and [employer] Indication:Encounter for annual general medical examination with abnormal findings in adult Start:15-Aug-2020 Instruction Type:Patient Education Patient Instructions Indication:BMI 32.0-32.9,adult Start:06-May-2020 Instruction Type:Provider Instructions for Treatment How to Access Health Informa tion Online using Patient Portal and [employer] Indication:BMI 32.0-32.9,adult Start:06-May-2020 Instruction Type:Patient Education How to Access Health Informa tion Online using Patient Portal and [employer] Indication:Encounter for annual general medical examination with abnormal findings in adult Start:15-Feb-2020 Instruction Type:Patient Education Patient Instructions Indication:Encounter for annual general medical examination with abnormal findings in adult Start:15-Feb-2020 Instruction Type:Provider Instructions for Treatment How to access health informa tion online Indication:Hypertension, benign Start:21-Dec-2019 Instruction Type:Patient Education How to access health informa tion online - Detail Indication:Hypertension, benign Start:21-Dec-2019 Instruction Type:Patient Education Patient Instructions Indication:Hypertension, benign Start:21-Dec-2019 Instruction Type:Provider Instructions for Treatment How to access health informa tion online Indication:Nonsmoker Start:30-Sep-2019 Instruction Type:Patient Education How to access health informa tion online - Detail Indication:Nonsmoker Start:30-Sep-2019 Instruction Type:Patient Education Patient Instructions Indication:Nonsmoker Start:30-Sep-2019 Instruction Type:Provider Instructions for Treatment How to access health informa tion online Indication:Encounter for annual general medical examination with abnormal findings in adult Start:11-Feb-2019 Instruction Type:Patient Education How to access health informa tion online - Detail Indication:Encounter for annual general medical examination with abnormal findings in adult Start:11-Feb-2019 Instruction Type:Patient Education Patient Instructions Indication:Encounter for annual general medical examination with abnormal findings in adult Start:11-Feb-2019 Instruction Type:Provider Instructions for Treatment How to access health informa tion online Indication:Post-nasal drainage Start:27-Nov-2018 Instruction Type:Patient Education How to access health informa tion online - Detail Indication:Post-nasal drainage Start:27-Nov-2018 Instruction Type:Patient Education Patient Instructions Indication:Post-nasal drainage Start:27-Nov-2018 Instruction Type:Provider Instructions for Treatment How to access health informa tion online Indication:Overactive bladder Start:08-Sep-2018 Instruction Type:Patient Education How to access health informa tion online - Detail Indication:Overactive bladder Start:08-Sep-2018 Instruction Type:Patient Education Patient Instructions Indication:Overactive bladder Start:08-Sep-2018 Instruction Type:Provider Instructions for Treatment How to access health informa tion online Indication:BMI 31.0-31.9,adult Start:05-May-2018 Instruction Type:Patient Education How to access health informa tion online - Detail Indication:BMI 31.0-31.9,adult Start:05-May-2018 Instruction Type:Patient Education Patient Instructions Indication:BMI 31.0-31.9,adult Start:05-May-2018 Instruction Type:Provider Instructions for Treatment How to access health informa tion online Indication:Overactive bladder Start:17-Mar-2018 Instruction Type:Patient Education How to access health informa tion online - Detail Indication:Overactive bladder Start:17-Mar-2018 Instruction Type:Patient Education Patient Instructions Indication:Overactive bladder Start:17-Mar-2018 Instruction Type:Provider Instructions for Treatment How to access health informa tion online Indication:Screening for HPV (human papillomavirus) (Renamed from Encounter for screening for human papillomavirus (HPV)) Start:14-Jan-2018 Instruction Type:Patient Education How to access health informa tion online - Detail Indication:Screening for HPV (human papillomavirus) (Renamed from Encounter for screening for human papillomavirus (HPV)) Start:14-Jan-2018 Instruction Type:Patient Education Patient Instructions Indication:Screening for HPV (human papillomavirus) (Renamed from Encounter for screening for human papillomavirus (HPV)) Start:14-Jan-2018 Instruction Type:Provider Instructions for Treatment [facility]; [facility] Work Phone: Instructions* Name Dates Details Patient Instructions Indication:BMI 29.0-29.9,adult Start:28-Sep-2021 Instruction Type:Provider Instructions for Treatment How to Access Health Informa tion Online using Patient Portal and [employer] Indication:BMI 29.0-29.9,adult Start:28-Sep-2021 Instruction Type:Patient Education Patient Instructions Indication:BMI 29.0-29.9,adult Start:12-Sep-2021 Instruction Type:Provider Instructions for Treatment How to Access Health Informa tion Online using Patient Portal and [employer] Indication:BMI 29.0-29.9,adult Start:12-Sep-2021 Instruction Type:Patient Education Patient Instructions Indication:Former smoker Start:18-Jul-2021 Instruction Type:Provider Instructions for Treatment How to Access Health Informa tion Online using Patient Portal and [employer] Indication:Former smoker Start:18-Jul-2021 Instruction Type:Patient Education Patient Instructions Indication:Encounter for annual general medical examination with abnormal findings in adult Start:19-Jan-2021 Instruction Type:Provider Instructions for Treatment How to Access Health Informa tion Online using Patient Portal and [employer] Indication:Encounter for annual general medical examination with abnormal findings in adult Start:19-Jan-2021 Instruction Type:Patient Education Patient Instructions Indication:Dog bite Start:08-Nov-2020 Instruction Type:Provider Instructions for Treatment How to Access Health Informa tion Online using Patient Portal and [employer] Indication:Dog bite Start:08-Nov-2020 Instruction Type:Patient Education Patient Instructions Indication:BMI 31.0-31.9,adult Start:01-Nov-2020 Instruction Type:Provider Instructions for Treatment How to Access Health Informa tion Online using Patient Portal and [employer] Indication:BMI 31.0-31.9,adult Start:01-Nov-2020 Instruction Type:Patient Education Patient Instructions Indication:Encounter for annual general medical examination with abnormal findings in adult Start:15-Aug-2020 Instruction Type:Provider Instructions for Treatment How to Access Health Informa tion Online using Patient Portal and [employer] Indication:Encounter for annual general medical examination with abnormal findings in adult Start:15-Aug-2020 Instruction Type:Patient Education Patient Instructions Indication:BMI 32.0-32.9,adult Start:06-May-2020 Instruction Type:Provider Instructions for Treatment How to Access Health Informa tion Online using Patient Portal and [employer] Indication:BMI 32.0-32.9,adult Start:06-May-2020 Instruction Type:Patient Education How to Access Health Informa tion Online using Patient Portal and [employer] Indication:Encounter for annual general medical examination with abnormal findings in adult Start:15-Feb-2020 Instruction Type:Patient Education Patient Instructions Indication:Encounter for annual general medical examination with abnormal findings in adult Start:15-Feb-2020 Instruction Type:Provider Instructions for Treatment How to access health informa tion online Indication:Hypertension, benign Start:21-Dec-2019 Instruction Type:Patient Education How to access health informa tion online - Detail Indication:Hypertension, benign Start:21-Dec-2019 Instruction Type:Patient Education Patient Instructions Indication:Hypertension, benign Start:21-Dec-2019 Instruction Type:Provider Instructions for Treatment How to access health informa tion online Indication:Nonsmoker Start:30-Sep-2019 Instruction Type:Patient Education How to access health informa tion online - Detail Indication:Nonsmoker Start:30-Sep-2019 Instruction Type:Patient Education Patient Instructions Indication:Nonsmoker Start:30-Sep-2019 Instruction Type:Provider Instructions for Treatment How to access health informa tion online Indication:Encounter for annual general medical examination with abnormal findings in adult Start:11-Feb-2019 Instruction Type:Patient Education How to access health informa tion online - Detail Indication:Encounter for annual general medical examination with abnormal findings in adult Start:11-Feb-2019 Instruction Type:Patient Education Patient Instructions Indication:Encounter for annual general medical examination with abnormal findings in adult Start:11-Feb-2019 Instruction Type:Provider Instructions for Treatment How to access health informa tion online Indication:Post-nasal drainage Start:27-Nov-2018 Instruction Type:Patient Education How to access health informa tion online - Detail Indication:Post-nasal drainage Start:27-Nov-2018 Instruction Type:Patient Education Patient Instructions Indication:Post-nasal drainage Start:27-Nov-2018 Instruction Type:Provider Instructions for Treatment How to access health informa tion online Indication:Overactive bladder Start:08-Sep-2018 Instruction Type:Patient Education How to access health informa tion online - Detail Indication:Overactive bladder Start:08-Sep-2018 Instruction Type:Patient Education Patient Instructions Indication:Overactive bladder Start:08-Sep-2018 Instruction Type:Provider Instructions for Treatment How to access health informa tion online Indication:BMI 31.0-31.9,adult Start:05-May-2018 Instruction Type:Patient Education How to access health informa tion online - Detail Indication:BMI 31.0-31.9,adult Start:05-May-2018 Instruction Type:Patient Education Patient Instructions Indication:BMI 31.0-31.9,adult Start:05-May-2018 Instruction Type:Provider Instructions for Treatment How to access health informa tion online Indication:Overactive bladder Start:17-Mar-2018 Instruction Type:Patient Education How to access health informa tion online - Detail Indication:Overactive bladder Start:17-Mar-2018 Instruction Type:Patient Education Patient Instructions Indication:Overactive bladder Start:17-Mar-2018 Instruction Type:Provider Instructions for Treatment How to access health informa tion online Indication:Screening for HPV (human papillomavirus) (Renamed from Encounter for screening for human papillomavirus (HPV)) Start:14-Jan-2018 Instruction Type:Patient Education How to access health informa tion online - Detail Indication:Screening for HPV (human papillomavirus) (Renamed from Encounter for screening for human papillomavirus (HPV)) Start:14-Jan-2018 Instruction Type:Patient Education Patient Instructions Indication:Screening for HPV (human papillomavirus) (Renamed from Encounter for screening for human papillomavirus (HPV)) Start:14-Jan-2018 Instruction Type:Provider Instructions for Treatment [facility]; [facility] Work Phone: Instructions* Name Dates Details Patient Instructions Indication:BMI 29.0-29.9,adult Start:28-Sep-2021 Instruction Type:Provider Instructions for Treatment How to Access Health Informa tion Online using Patient Portal and [employer] Apps Indication:BMI 29.0-29.9,adult Start:28-Sep-2021 Instruction Type:Patient Education Patient Instructions Indication:BMI 29.0-29.9,adult Start:12-Sep-2021 Instruction Type:Provider Instructions for Treatment How to Access Health Informa tion Online using Patient Portal and [employer] Apps Indication:BMI 29.0-29.9,adult Start:12-Sep-2021 Instruction Type:Patient Education Patient Instructions Indication:Former smoker Start:18-Jul-2021 Instruction Type:Provider Instructions for Treatment How to Access Health Informa tion Online using Patient Portal and [employer] Apps Indication:Former smoker Start:18-Jul-2021 Instruction Type:Patient Education Patient Instructions Indication:Encounter for annual general medical examination with abnormal findings in adult Start:19-Jan-2021 Instruction Type:Provider Instructions for Treatment How to Access Health Informa tion Online using Patient Portal and [employer] Apps Indication:Encounter for annual general medical examination with abnormal findings in adult Start:19-Jan-2021 Instruction Type:Patient Education Patient Instructions Indication:Dog bite Start:08-Nov-2020 Instruction Type:Provider Instructions for Treatment How to Access Health Informa tion Online using Patient Portal and [employer] Apps Indication:Dog bite Start:08-Nov-2020 Instruction Type:Patient Education Patient Instructions Indication:BMI 31.0-31.9,adult Start:01-Nov-2020 Instruction Type:Provider Instructions for Treatment How to Access Health Informa tion Online using Patient Portal and [employer] Apps Indication:BMI 31.0-31.9,adult Start:01-Nov-2020 Instruction Type:Patient Education Patient Instructions Indication:Encounter for annual general medical examination with abnormal findings in adult Start:15-Aug-2020 Instruction Type:Provider Instructions for Treatment How to Access Health Informa tion Online using Patient Portal and [employer] Apps Indication:Encounter for annual general medical examination with abnormal findings in adult Start:15-Aug-2020 Instruction Type:Patient Education Patient Instructions Indication:BMI 32.0-32.9,adult Start:06-May-2020 Instruction Type:Provider Instructions for Treatment How to Access Health Informa tion Online using Patient Portal and [employer] Apps Indication:BMI 32.0-32.9,adult Start:06-May-2020 Instruction Type:Patient Education How to Access Health Informa tion Online using Patient Portal and [employer] Apps Indication:Encounter for annual general medical examination with abnormal findings in adult Start:15-Feb-2020 Instruction Type:Patient Education Patient Instructions Indication:Encounter for annual general medical examination with abnormal findings in adult Start:15-Feb-2020 Instruction Type:Provider Instructions for Treatment How to access health informa tion online Indication:Hypertension, benign Start:21-Dec-2019 Instruction Type:Patient Education How to access health informa tion online - Detail Indication:Hypertension, benign Start:21-Dec-2019 Instruction Type:Patient Education Patient Instructions Indication:Hypertension, benign Start:21-Dec-2019 Instruction Type:Provider Instructions for Treatment How to access health informa tion online Indication:Nonsmoker Start:30-Sep-2019 Instruction Type:Patient Education How to access health informa tion online - Detail Indication:Nonsmoker Start:30-Sep-2019 Instruction Type:Patient Education Patient Instructions Indication:Nonsmoker Start:30-Sep-2019 Instruction Type:Provider Instructions for Treatment How to access health informa tion online Indication:Encounter for annual general medical examination with abnormal findings in adult Start:11-Feb-2019 Instruction Type:Patient Education How to access health informa tion online - Detail Indication:Encounter for annual general medical examination with abnormal findings in adult Start:11-Feb-2019 Instruction Type:Patient Education Patient Instructions Indication:Encounter for annual general medical examination with abnormal findings in adult Start:11-Feb-2019 Instruction Type:Provider Instructions for Treatment How to access health informa tion online Indication:Post-nasal drainage Start:27-Nov-2018 Instruction Type:Patient Education How to access health informa tion online - Detail Indication:Post-nasal drainage Start:27-Nov-2018 Instruction Type:Patient Education Patient Instructions Indication:Post-nasal drainage Start:27-Nov-2018 Instruction Type:Provider Instructions for Treatment How to access health informa tion online Indication:Overactive bladder Start:08-Sep-2018 Instruction Type:Patient Education How to access health informa tion online - Detail Indication:Overactive bladder Start:08-Sep-2018 Instruction Type:Patient Education Patient Instructions Indication:Overactive bladder Start:08-Sep-2018 Instruction Type:Provider Instructions for Treatment How to access health informa tion online Indication:BMI 31.0-31.9,adult Start:05-May-2018 Instruction Type:Patient Education How to access health informa tion online - Detail Indication:BMI 31.0-31.9,adult Start:05-May-2018 Instruction Type:Patient Education Patient Instructions Indication:BMI 31.0-31.9,adult Start:05-May-2018 Instruction Type:Provider Instructions for Treatment How to access health informa tion online Indication:Overactive bladder Start:17-Mar-2018 Instruction Type:Patient Education How to access health informa tion online - Detail Indication:Overactive bladder Start:17-Mar-2018 Instruction Type:Patient Education Patient Instructions Indication:Overactive bladder Start:17-Mar-2018 Instruction Type:Provider Instructions for Treatment How to access health informa tion online Indication:Screening for HPV (human papillomavirus) (Renamed from Encounter for screening for human papillomavirus (HPV)) Start:14-Jan-2018 Instruction Type:Patient Education How to access health informa tion online - Detail Indication:Screening for HPV (human papillomavirus) (Renamed from Encounter for screening for human papillomavirus (HPV)) Start:14-Jan-2018 Instruction Type:Patient Education Patient Instructions Indication:Screening for HPV (human papillomavirus) (Renamed from Encounter for screening for human papillomavirus (HPV)) Start:14-Jan-2018 Instruction Type:Provider Instructions for Treatment [facility]; [facility] Work Phone: Instructions* Name Dates Details Patient Instructions Indication:BMI 29.0-29.9,adult Start:28-Sep-2021 Instruction Type:Provider Instructions for Treatment How to Access Health Informa tion Online using Patient Portal and [employer] Apps Indication:BMI 29.0-29.9,adult Start:28-Sep-2021 Instruction Type:Patient Education Patient Instructions Indication:BMI 29.0-29.9,adult Start:12-Sep-2021 Instruction Type:Provider Instructions for Treatment How to Access Health Informa tion Online using Patient Portal and [employer] Apps Indication:BMI 29.0-29.9,adult Start:12-Sep-2021 Instruction Type:Patient Education Patient Instructions Indication:Former smoker Start:18-Jul-2021 Instruction Type:Provider Instructions for Treatment How to Access Health Informa tion Online using Patient Portal and [employer] Apps Indication:Former smoker Start:18-Jul-2021 Instruction Type:Patient Education Patient Instructions Indication:Encounter for annual general medical examination with abnormal findings in adult Start:19-Jan-2021 Instruction Type:Provider Instructions for Treatment How to Access Health Informa tion Online using Patient Portal and [employer] Apps Indication:Encounter for annual general medical examination with abnormal findings in adult Start:19-Jan-2021 Instruction Type:Patient Education Patient Instructions Indication:Dog bite Start:08-Nov-2020 Instruction Type:Provider Instructions for Treatment How to Access Health Informa tion Online using Patient Portal and [employer] Apps Indication:Dog bite Start:08-Nov-2020 Instruction Type:Patient Education Patient Instructions Indication:BMI 31.0-31.9,adult Start:01-Nov-2020 Instruction Type:Provider Instructions for Treatment How to Access Health Informa tion Online using Patient Portal and [employer] Apps Indication:BMI 31.0-31.9,adult Start:01-Nov-2020 Instruction Type:Patient Education Patient Instructions Indication:Encounter for annual general medical examination with abnormal findings in adult Start:15-Aug-2020 Instruction Type:Provider Instructions for Treatment How to Access Health Informa tion Online using Patient Portal and [employer] Apps Indication:Encounter for annual general medical examination with abnormal findings in adult Start:15-Aug-2020 Instruction Type:Patient Education Patient Instructions Indication:BMI 32.0-32.9,adult Start:06-May-2020 Instruction Type:Provider Instructions for Treatment How to Access Health Informa tion Online using Patient Portal and [employer] Apps Indication:BMI 32.0-32.9,adult Start:06-May-2020 Instruction Type:Patient Education How to Access Health Informa tion Online using Patient Portal and [employer] Apps Indication:Encounter for annual general medical examination with abnormal findings in adult Start:15-Feb-2020 Instruction Type:Patient Education Patient Instructions Indication:Encounter for annual general medical examination with abnormal findings in adult Start:15-Feb-2020 Instruction Type:Provider Instructions for Treatment How to access health informa tion online Indication:Hypertension, benign Start:21-Dec-2019 Instruction Type:Patient Education How to access health informa tion online - Detail Indication:Hypertension, benign Start:21-Dec-2019 Instruction Type:Patient Education Patient Instructions Indication:Hypertension, benign Start:21-Dec-2019 Instruction Type:Provider Instructions for Treatment How to access health informa tion online Indication:Nonsmoker Start:30-Sep-2019 Instruction Type:Patient Education How to access health informa tion online - Detail Indication:Nonsmoker Start:30-Sep-2019 Instruction Type:Patient Education Patient Instructions Indication:Nonsmoker Start:30-Sep-2019 Instruction Type:Provider Instructions for Treatment How to access health informa tion online Indication:Encounter for annual general medical examination with abnormal findings in adult Start:11-Feb-2019 Instruction Type:Patient Education How to access health informa tion online - Detail Indication:Encounter for annual general medical examination with abnormal findings in adult Start:11-Feb-2019 Instruction Type:Patient Education Patient Instructions Indication:Encounter for annual general medical examination with abnormal findings in adult Start:11-Feb-2019 Instruction Type:Provider Instructions for Treatment How to access health informa tion online Indication:Post-nasal drainage Start:27-Nov-2018 Instruction Type:Patient Education How to access health informa tion online - Detail Indication:Post-nasal drainage Start:27-Nov-2018 Instruction Type:Patient Education Patient Instructions Indication:Post-nasal drainage Start:27-Nov-2018 Instruction Type:Provider Instructions for Treatment How to access health informa tion online Indication:Overactive bladder Start:08-Sep-2018 Instruction Type:Patient Education How to access health informa tion online - Detail Indication:Overactive bladder Start:08-Sep-2018 Instruction Type:Patient Education Patient Instructions Indication:Overactive bladder Start:08-Sep-2018 Instruction Type:Provider Instructions for Treatment How to access health informa tion online Indication:BMI 31.0-31.9,adult Start:05-May-2018 Instruction Type:Patient Education How to access health informa tion online - Detail Indication:BMI 31.0-31.9,adult Start:05-May-2018 Instruction Type:Patient Education Patient Instructions Indication:BMI 31.0-31.9,adult Start:05-May-2018 Instruction Type:Provider Instructions for Treatment How to access health informa tion online Indication:Overactive bladder Start:17-Mar-2018 Instruction Type:Patient Education How to access health informa tion online - Detail Indication:Overactive bladder Start:17-Mar-2018 Instruction Type:Patient Education Patient Instructions Indication:Overactive bladder Start:17-Mar-2018 Instruction Type:Provider Instructions for Treatment How to access health informa tion online Indication:Screening for HPV (human papillomavirus) (Renamed from Encounter for screening for human papillomavirus (HPV)) Start:14-Jan-2018 Instruction Type:Patient Education How to access health informa tion online - Detail Indication:Screening for HPV (human papillomavirus) (Renamed from Encounter for screening for human papillomavirus (HPV)) Start:14-Jan-2018 Instruction Type:Patient Education Patient Instructions Indication:Screening for HPV (human papillomavirus) (Renamed from Encounter for screening for human papillomavirus (HPV)) Start:14-Jan-2018 Instruction Type:Provider Instructions for Treatment [facility]; [facility] Work Phone: Instructions* Name Dates Details Patient Instructions Indication:BMI 30.0-30.9,adult Start:27-Aug-2022 Instruction Type:Provider Instructions for Treatment How to Access Health Informa tion Online using Patient Portal and [employer] Apps Indication:BMI 30.0-30.9,adult Start:27-Aug-2022 Instruction Type:Patient Education Patient Instructions Indication:BMI 29.0-29.9,adult Start:28-Sep-2021 Instruction Type:Provider Instructions for Treatment How to Access Health Informa tion Online using Patient Portal and [employer] Apps Indication:BMI 29.0-29.9,adult Start:28-Sep-2021 Instruction Type:Patient Education Patient Instructions Indication:BMI 29.0-29.9,adult Start:12-Sep-2021 Instruction Type:Provider Instructions for Treatment How to Access Health Informa tion Online using Patient Portal and [employer] Apps Indication:BMI 29.0-29.9,adult Start:12-Sep-2021 Instruction Type:Patient Education Patient Instructions Indication:Former smoker Start:18-Jul-2021 Instruction Type:Provider Instructions for Treatment How to Access Health Informa tion Online using Patient Portal and [employer] Apps Indication:Former smoker Start:18-Jul-2021 Instruction Type:Patient Education Patient Instructions Indication:Encounter for annual general medical examination with abnormal findings in adult Start:19-Jan-2021 Instruction Type:Provider Instructions for Treatment How to Access Health Informa tion Online using Patient Portal and [employer] Apps Indication:Encounter for annual general medical examination with abnormal findings in adult Start:19-Jan-2021 Instruction Type:Patient Education Patient Instructions Indication:Dog bite Start:08-Nov-2020 Instruction Type:Provider Instructions for Treatment How to Access Health Informa tion Online using Patient Portal and [employer] Apps Indication:Dog bite Start:08-Nov-2020 Instruction Type:Patient Education Patient Instructions Indication:BMI 31.0-31.9,adult Start:01-Nov-2020 Instruction Type:Provider Instructions for Treatment How to Access Health Informa tion Online using Patient Portal and [employer] Apps Indication:BMI 31.0-31.9,adult Start:01-Nov-2020 Instruction Type:Patient Education Patient Instructions Indication:Encounter for annual general medical examination with abnormal findings in adult Start:15-Aug-2020 Instruction Type:Provider Instructions for Treatment How to Access Health Informa tion Online using Patient Portal and [employer] Apps Indication:Encounter for annual general medical examination with abnormal findings in adult Start:15-Aug-2020 Instruction Type:Patient Education Patient Instructions Indication:BMI 32.0-32.9,adult Start:06-May-2020 Instruction Type:Provider Instructions for Treatment How to Access Health Informa tion Online using Patient Portal and [employer] Apps Indication:BMI 32.0-32.9,adult Start:06-May-2020 Instruction Type:Patient Education How to Access Health Informa tion Online using Patient Portal and [employer] Apps Indication:Encounter for annual general medical examination with abnormal findings in adult Start:15-Feb-2020 Instruction Type:Patient Education Patient Instructions Indication:Encounter for annual general medical examination with abnormal findings in adult Start:15-Feb-2020 Instruction Type:Provider Instructions for Treatment How to access health informa tion online Indication:Hypertension, benign Start:21-Dec-2019 Instruction Type:Patient Education How to access health informa tion online - Detail Indication:Hypertension, benign Start:21-Dec-2019 Instruction Type:Patient Education Patient Instructions Indication:Hypertension, benign Start:21-Dec-2019 Instruction Type:Provider Instructions for Treatment How to access health informa tion online Indication:Nonsmoker Start:30-Sep-2019 Instruction Type:Patient Education How to access health informa tion online - Detail Indication:Nonsmoker Start:30-Sep-2019 Instruction Type:Patient Education Patient Instructions Indication:Nonsmoker Start:30-Sep-2019 Instruction Type:Provider Instructions for Treatment How to access health informa tion online Indication:Encounter for annual general medical examination with abnormal findings in adult Start:11-Feb-2019 Instruction Type:Patient Education How to access health informa tion online - Detail Indication:Encounter for annual general medical examination with abnormal findings in adult Start:11-Feb-2019 Instruction Type:Patient Education Patient Instructions Indication:Encounter for annual general medical examination with abnormal findings in adult Start:11-Feb-2019 Instruction Type:Provider Instructions for Treatment How to access health informa tion online Indication:Post-nasal drainage Start:27-Nov-2018 Instruction Type:Patient Education How to access health informa tion online - Detail Indication:Post-nasal drainage Start:27-Nov-2018 Instruction Type:Patient Education Patient Instructions Indication:Post-nasal drainage Start:27-Nov-2018 Instruction Type:Provider Instructions for Treatment How to access health informa tion online Indication:Overactive bladder Start:08-Sep-2018 Instruction Type:Patient Education How to access health informa tion online - Detail Indication:Overactive bladder Start:08-Sep-2018 Instruction Type:Patient Education Patient Instructions Indication:Overactive bladder Start:08-Sep-2018 Instruction Type:Provider Instructions for Treatment How to access health informa tion online Indication:BMI 31.0-31.9,adult Start:05-May-2018 Instruction Type:Patient Education How to access health informa tion online - Detail Indication:BMI 31.0-31.9,adult Start:05-May-2018 Instruction Type:Patient Education Patient Instructions Indication:BMI 31.0-31.9,adult Start:05-May-2018 Instruction Type:Provider Instructions for Treatment How to access health informa tion online Indication:Overactive bladder Start:17-Mar-2018 Instruction Type:Patient Education How to access health informa tion online - Detail Indication:Overactive bladder Start:17-Mar-2018 Instruction Type:Patient Education Patient Instructions Indication:Overactive bladder Start:17-Mar-2018 Instruction Type:Provider Instructions for Treatment How to access health informa tion online Indication:Screening for HPV (human papillomavirus) (Renamed from Encounter for screening for human papillomavirus (HPV)) Start:14-Jan-2018 Instruction Type:Patient Education How to access health informa tion online - Detail Indication:Screening for HPV (human papillomavirus) (Renamed from Encounter for screening for human papillomavirus (HPV)) Start:14-Jan-2018 Instruction Type:Patient Education Patient Instructions Indication:Screening for HPV (human papillomavirus) (Renamed from Encounter for screening for human papillomavirus (HPV)) Start:14-Jan-2018 Instruction Type:Provider Instructions for Treatment [facility]; [facility] Work Phone: Instructions* Name Dates Details Patient Instructions Indication:BMI 30.0-30.9,adult Start:27-Aug-2022 Instruction Type:Provider Instructions for Treatment How to Access Health Informa tion Online using Patient Portal and [employer] Indication:BMI 30.0-30.9,adult Start:27-Aug-2022 Instruction Type:Patient Education Patient Instructions Indication:BMI 29.0-29.9,adult Start:28-Sep-2021 Instruction Type:Provider Instructions for Treatment How to Access Health Informa tion Online using Patient Portal and [employer] Indication:BMI 29.0-29.9,adult Start:28-Sep-2021 Instruction Type:Patient Education Patient Instructions Indication:BMI 29.0-29.9,adult Start:12-Sep-2021 Instruction Type:Provider Instructions for Treatment How to Access Health Informa tion Online using Patient Portal and [employer] Indication:BMI 29.0-29.9,adult Start:12-Sep-2021 Instruction Type:Patient Education Patient Instructions Indication:Former smoker Start:18-Jul-2021 Instruction Type:Provider Instructions for Treatment How to Access Health Informa tion Online using Patient Portal and [employer] Indication:Former smoker Start:18-Jul-2021 Instruction Type:Patient Education Patient Instructions Indication:Encounter for annual general medical examination with abnormal findings in adult Start:19-Jan-2021 Instruction Type:Provider Instructions for Treatment How to Access Health Informa tion Online using Patient Portal and [employer] Indication:Encounter for annual general medical examination with abnormal findings in adult Start:19-Jan-2021 Instruction Type:Patient Education Patient Instructions Indication:Dog bite Start:08-Nov-2020 Instruction Type:Provider Instructions for Treatment How to Access Health Informa tion Online using Patient Portal and [employer] Apps Indication:Dog bite Start:08-Nov-2020 Instruction Type:Patient Education Patient Instructions Indication:BMI 31.0-31.9,adult Start:01-Nov-2020 Instruction Type:Provider Instructions for Treatment How to Access Health Informa tion Online using Patient Portal and [employer] Apps Indication:BMI 31.0-31.9,adult Start:01-Nov-2020 Instruction Type:Patient Education Patient Instructions Indication:Encounter for annual general medical examination with abnormal findings in adult Start:15-Aug-2020 Instruction Type:Provider Instructions for Treatment How to Access Health Informa tion Online using Patient Portal and [employer] Apps Indication:Encounter for annual general medical examination with abnormal findings in adult Start:15-Aug-2020 Instruction Type:Patient Education Patient Instructions Indication:BMI 32.0-32.9,adult Start:06-May-2020 Instruction Type:Provider Instructions for Treatment How to Access Health Informa tion Online using Patient Portal and [employer] Apps Indication:BMI 32.0-32.9,adult Start:06-May-2020 Instruction Type:Patient Education How to Access Health Informa tion Online using Patient Portal and [employer] Apps Indication:Encounter for annual general medical examination with abnormal findings in adult Start:15-Feb-2020 Instruction Type:Patient Education Patient Instructions Indication:Encounter for annual general medical examination with abnormal findings in adult Start:15-Feb-2020 Instruction Type:Provider Instructions for Treatment How to access health informa tion online Indication:Hypertension, benign Start:21-Dec-2019 Instruction Type:Patient Education How to access health informa tion online - Detail Indication:Hypertension, benign Start:21-Dec-2019 Instruction Type:Patient Education Patient Instructions Indication:Hypertension, benign Start:21-Dec-2019 Instruction Type:Provider Instructions for Treatment How to access health informa tion online Indication:Nonsmoker Start:30-Sep-2019 Instruction Type:Patient Education How to access health informa tion online - Detail Indication:Nonsmoker Start:30-Sep-2019 Instruction Type:Patient Education Patient Instructions Indication:Nonsmoker Start:30-Sep-2019 Instruction Type:Provider Instructions for Treatment How to access health informa tion online Indication:Encounter for annual general medical examination with abnormal findings in adult Start:11-Feb-2019 Instruction Type:Patient Education How to access health informa tion online - Detail Indication:Encounter for annual general medical examination with abnormal findings in adult Start:11-Feb-2019 Instruction Type:Patient Education Patient Instructions Indication:Encounter for annual general medical examination with abnormal findings in adult Start:11-Feb-2019 Instruction Type:Provider Instructions for Treatment How to access health informa tion online Indication:Post-nasal drainage Start:27-Nov-2018 Instruction Type:Patient Education How to access health informa tion online - Detail Indication:Post-nasal drainage Start:27-Nov-2018 Instruction Type:Patient Education Patient Instructions Indication:Post-nasal drainage Start:27-Nov-2018 Instruction Type:Provider Instructions for Treatment How to access health informa tion online Indication:Overactive bladder Start:08-Sep-2018 Instruction Type:Patient Education How to access health informa tion online - Detail Indication:Overactive bladder Start:08-Sep-2018 Instruction Type:Patient Education Patient Instructions Indication:Overactive bladder Start:08-Sep-2018 Instruction Type:Provider Instructions for Treatment How to access health informa tion online Indication:BMI 31.0-31.9,adult Start:05-May-2018 Instruction Type:Patient Education How to access health informa tion online - Detail Indication:BMI 31.0-31.9,adult Start:05-May-2018 Instruction Type:Patient Education Patient Instructions Indication:BMI 31.0-31.9,adult Start:05-May-2018 Instruction Type:Provider Instructions for Treatment How to access health informa tion online Indication:Overactive bladder Start:17-Mar-2018 Instruction Type:Patient Education How to access health informa tion online - Detail Indication:Overactive bladder Start:17-Mar-2018 Instruction Type:Patient Education Patient Instructions Indication:Overactive bladder Start:17-Mar-2018 Instruction Type:Provider Instructions for Treatment How to access health informa tion online Indication:Screening for HPV (human papillomavirus) (Renamed from Encounter for screening for human papillomavirus (HPV)) Start:14-Jan-2018 Instruction Type:Patient Education How to access health informa tion online - Detail Indication:Screening for HPV (human papillomavirus) (Renamed from Encounter for screening for human papillomavirus (HPV)) Start:14-Jan-2018 Instruction Type:Patient Education Patient Instructions Indication:Screening for HPV (human papillomavirus) (Renamed from Encounter for screening for human papillomavirus (HPV)) Start:14-Jan-2018 Instruction Type:Provider Instructions for Treatment [facility]; [facility] Work Phone: Instructions* Name Dates Details Patient Instructions Indication:BMI 30.0-30.9,adult Start:27-Aug-2022 Instruction Type:Provider Instructions for Treatment How to Access Health Informa tion Online using Patient Portal and [employer] Apps Indication:BMI 30.0-30.9,adult Start:27-Aug-2022 Instruction Type:Patient Education Patient Instructions Indication:BMI 29.0-29.9,adult Start:28-Sep-2021 Instruction Type:Provider Instructions for Treatment How to Access Health Informa tion Online using Patient Portal and [employer] Apps Indication:BMI 29.0-29.9,adult Start:28-Sep-2021 Instruction Type:Patient Education Patient Instructions Indication:BMI 29.0-29.9,adult Start:12-Sep-2021 Instruction Type:Provider Instructions for Treatment How to Access Health Informa tion Online using Patient Portal and [employer] Apps Indication:BMI 29.0-29.9,adult Start:12-Sep-2021 Instruction Type:Patient Education Patient Instructions Indication:Former smoker Start:18-Jul-2021 Instruction Type:Provider Instructions for Treatment How to Access Health Informa tion Online using Patient Portal and [employer] Apps Indication:Former smoker Start:18-Jul-2021 Instruction Type:Patient Education Patient Instructions Indication:Encounter for annual general medical examination with abnormal findings in adult Start:19-Jan-2021 Instruction Type:Provider Instructions for Treatment How to Access Health Informa tion Online using Patient Portal and [employer] Apps Indication:Encounter for annual general medical examination with abnormal findings in adult Start:19-Jan-2021 Instruction Type:Patient Education Patient Instructions Indication:Dog bite Start:08-Nov-2020 Instruction Type:Provider Instructions for Treatment How to Access Health Informa tion Online using Patient Portal and [employer] Apps Indication:Dog bite Start:08-Nov-2020 Instruction Type:Patient Education Patient Instructions Indication:BMI 31.0-31.9,adult Start:01-Nov-2020 Instruction Type:Provider Instructions for Treatment How to Access Health Informa tion Online using Patient Portal and [employer] Apps Indication:BMI 31.0-31.9,adult Start:01-Nov-2020 Instruction Type:Patient Education Patient Instructions Indication:Encounter for annual general medical examination with abnormal findings in adult Start:15-Aug-2020 Instruction Type:Provider Instructions for Treatment How to Access Health Informa tion Online using Patient Portal and [employer] Apps Indication:Encounter for annual general medical examination with abnormal findings in adult Start:15-Aug-2020 Instruction Type:Patient Education Patient Instructions Indication:BMI 32.0-32.9,adult Start:06-May-2020 Instruction Type:Provider Instructions for Treatment How to Access Health Informa tion Online using Patient Portal and [employer] Apps Indication:BMI 32.0-32.9,adult Start:06-May-2020 Instruction Type:Patient Education How to Access Health Informa tion Online using Patient Portal and [employer] Apps Indication:Encounter for annual general medical examination with abnormal findings in adult Start:15-Feb-2020 Instruction Type:Patient Education Patient Instructions Indication:Encounter for annual general medical examination with abnormal findings in adult Start:15-Feb-2020 Instruction Type:Provider Instructions for Treatment How to access health informa tion online Indication:Hypertension, benign Start:21-Dec-2019 Instruction Type:Patient Education How to access health informa tion online - Detail Indication:Hypertension, benign Start:21-Dec-2019 Instruction Type:Patient Education Patient Instructions Indication:Hypertension, benign Start:21-Dec-2019 Instruction Type:Provider Instructions for Treatment How to access health informa tion online Indication:Nonsmoker Start:30-Sep-2019 Instruction Type:Patient Education How to access health informa tion online - Detail Indication:Nonsmoker Start:30-Sep-2019 Instruction Type:Patient Education Patient Instructions Indication:Nonsmoker Start:30-Sep-2019 Instruction Type:Provider Instructions for Treatment How to access health informa tion online Indication:Encounter for annual general medical examination with abnormal findings in adult Start:11-Feb-2019 Instruction Type:Patient Education How to access health informa tion online - Detail Indication:Encounter for annual general medical examination with abnormal findings in adult Start:11-Feb-2019 Instruction Type:Patient Education Patient Instructions Indication:Encounter for annual general medical examination with abnormal findings in adult Start:11-Feb-2019 Instruction Type:Provider Instructions for Treatment How to access health informa tion online Indication:Post-nasal drainage Start:27-Nov-2018 Instruction Type:Patient Education How to access health informa tion online - Detail Indication:Post-nasal drainage Start:27-Nov-2018 Instruction Type:Patient Education Patient Instructions Indication:Post-nasal drainage Start:27-Nov-2018 Instruction Type:Provider Instructions for Treatment How to access health informa tion online Indication:Overactive bladder Start:08-Sep-2018 Instruction Type:Patient Education How to access health informa tion online - Detail Indication:Overactive bladder Start:08-Sep-2018 Instruction Type:Patient Education Patient Instructions Indication:Overactive bladder Start:08-Sep-2018 Instruction Type:Provider Instructions for Treatment How to access health informa tion online Indication:BMI 31.0-31.9,adult Start:05-May-2018 Instruction Type:Patient Education How to access health informa tion online - Detail Indication:BMI 31.0-31.9,adult Start:05-May-2018 Instruction Type:Patient Education Patient Instructions Indication:BMI 31.0-31.9,adult Start:05-May-2018 Instruction Type:Provider Instructions for Treatment How to access health informa tion online Indication:Overactive bladder Start:17-Mar-2018 Instruction Type:Patient Education How to access health informa tion online - Detail Indication:Overactive bladder Start:17-Mar-2018 Instruction Type:Patient Education Patient Instructions Indication:Overactive bladder Start:17-Mar-2018 Instruction Type:Provider Instructions for Treatment How to access health informa tion online Indication:Screening for HPV (human papillomavirus) (Renamed from Encounter for screening for human papillomavirus (HPV)) Start:14-Jan-2018 Instruction Type:Patient Education How to access health informa tion online - Detail Indication:Screening for HPV (human papillomavirus) (Renamed from Encounter for screening for human papillomavirus (HPV)) Start:14-Jan-2018 Instruction Type:Patient Education Patient Instructions Indication:Screening for HPV (human papillomavirus) (Renamed from Encounter for screening for human papillomavirus (HPV)) Start:14-Jan-2018 Instruction Type:Provider Instructions for Treatment [facility]; [facility] Work Phone: Instructions* Name Dates Details Patient Instructions Indication:BMI 30.0-30.9,adult Start:27-Aug-2022 Instruction Type:Provider Instructions for Treatment How to Access Health Informa tion Online using Patient Portal and [employer] Apps Indication:BMI 30.0-30.9,adult Start:27-Aug-2022 Instruction Type:Patient Education Patient Instructions Indication:BMI 29.0-29.9,adult Start:28-Sep-2021 Instruction Type:Provider Instructions for Treatment How to Access Health Informa tion Online using Patient Portal and [employer] Apps Indication:BMI 29.0-29.9,adult Start:28-Sep-2021 Instruction Type:Patient Education Patient Instructions Indication:BMI 29.0-29.9,adult Start:12-Sep-2021 Instruction Type:Provider Instructions for Treatment How to Access Health Informa tion Online using Patient Portal and [employer] Apps Indication:BMI 29.0-29.9,adult Start:12-Sep-2021 Instruction Type:Patient Education Patient Instructions Indication:Former smoker Start:18-Jul-2021 Instruction Type:Provider Instructions for Treatment How to Access Health Informa tion Online using Patient Portal and [employer] Apps Indication:Former smoker Start:18-Jul-2021 Instruction Type:Patient Education Patient Instructions Indication:Encounter for annual general medical examination with abnormal findings in adult Start:19-Jan-2021 Instruction Type:Provider Instructions for Treatment How to Access Health Informa tion Online using Patient Portal and [employer] Apps Indication:Encounter for annual general medical examination with abnormal findings in adult Start:19-Jan-2021 Instruction Type:Patient Education Patient Instructions Indication:Dog bite Start:08-Nov-2020 Instruction Type:Provider Instructions for Treatment How to Access Health Informa tion Online using Patient Portal and [employer] Apps Indication:Dog bite Start:08-Nov-2020 Instruction Type:Patient Education Patient Instructions Indication:BMI 31.0-31.9,adult Start:01-Nov-2020 Instruction Type:Provider Instructions for Treatment How to Access Health Informa tion Online using Patient Portal and [employer] Apps Indication:BMI 31.0-31.9,adult Start:01-Nov-2020 Instruction Type:Patient Education Patient Instructions Indication:Encounter for annual general medical examination with abnormal findings in adult Start:15-Aug-2020 Instruction Type:Provider Instructions for Treatment How to Access Health Informa tion Online using Patient Portal and [employer] Apps Indication:Encounter for annual general medical examination with abnormal findings in adult Start:15-Aug-2020 Instruction Type:Patient Education Patient Instructions Indication:BMI 32.0-32.9,adult Start:06-May-2020 Instruction Type:Provider Instructions for Treatment How to Access Health Informa tion Online using Patient Portal and [employer] Apps Indication:BMI 32.0-32.9,adult Start:06-May-2020 Instruction Type:Patient Education How to Access Health Informa tion Online using Patient Portal and [employer] Apps Indication:Encounter for annual general medical examination with abnormal findings in adult Start:15-Feb-2020 Instruction Type:Patient Education Patient Instructions Indication:Encounter for annual general medical examination with abnormal findings in adult Start:15-Feb-2020 Instruction Type:Provider Instructions for Treatment How to access health informa tion online Indication:Hypertension, benign Start:21-Dec-2019 Instruction Type:Patient Education How to access health informa tion online - Detail Indication:Hypertension, benign Start:21-Dec-2019 Instruction Type:Patient Education Patient Instructions Indication:Hypertension, benign Start:21-Dec-2019 Instruction Type:Provider Instructions for Treatment How to access health informa tion online Indication:Nonsmoker Start:30-Sep-2019 Instruction Type:Patient Education How to access health informa tion online - Detail Indication:Nonsmoker Start:30-Sep-2019 Instruction Type:Patient Education Patient Instructions Indication:Nonsmoker Start:30-Sep-2019 Instruction Type:Provider Instructions for Treatment How to access health informa tion online Indication:Encounter for annual general medical examination with abnormal findings in adult Start:11-Feb-2019 Instruction Type:Patient Education How to access health informa tion online - Detail Indication:Encounter for annual general medical examination with abnormal findings in adult Start:11-Feb-2019 Instruction Type:Patient Education Patient Instructions Indication:Encounter for annual general medical examination with abnormal findings in adult Start:11-Feb-2019 Instruction Type:Provider Instructions for Treatment How to access health informa tion online Indication:Post-nasal drainage Start:27-Nov-2018 Instruction Type:Patient Education How to access health informa tion online - Detail Indication:Post-nasal drainage Start:27-Nov-2018 Instruction Type:Patient Education Patient Instructions Indication:Post-nasal drainage Start:27-Nov-2018 Instruction Type:Provider Instructions for Treatment How to access health informa tion online Indication:Overactive bladder Start:08-Sep-2018 Instruction Type:Patient Education How to access health informa tion online - Detail Indication:Overactive bladder Start:08-Sep-2018 Instruction Type:Patient Education Patient Instructions Indication:Overactive bladder Start:08-Sep-2018 Instruction Type:Provider Instructions for Treatment How to access health informa tion online Indication:BMI 31.0-31.9,adult Start:05-May-2018 Instruction Type:Patient Education How to access health informa tion online - Detail Indication:BMI 31.0-31.9,adult Start:05-May-2018 Instruction Type:Patient Education Patient Instructions Indication:BMI 31.0-31.9,adult Start:05-May-2018 Instruction Type:Provider Instructions for Treatment How to access health informa tion online Indication:Overactive bladder Start:17-Mar-2018 Instruction Type:Patient Education How to access health informa tion online - Detail Indication:Overactive bladder Start:17-Mar-2018 Instruction Type:Patient Education Patient Instructions Indication:Overactive bladder Start:17-Mar-2018 Instruction Type:Provider Instructions for Treatment How to access health informa tion online Indication:Screening for HPV (human papillomavirus) (Renamed from Encounter for screening for human papillomavirus (HPV)) Start:14-Jan-2018 Instruction Type:Patient Education How to access health informa tion online - Detail Indication:Screening for HPV (human papillomavirus) (Renamed from Encounter for screening for human papillomavirus (HPV)) Start:14-Jan-2018 Instruction Type:Patient Education Patient Instructions Indication:Screening for HPV (human papillomavirus) (Renamed from Encounter for screening for human papillomavirus (HPV)) Start:14-Jan-2018 Instruction Type:Provider Instructions for Treatment [facility]; [facility] Work Phone: Summary Purpose Family History Unknown Family Member Name Dates Details Daughter 1 Comments:anxiety, [place] tele[employer] engineer Status:Active Father Comments:colon cancer 65 yo, HTN, stroke 65yo, [place] 72 yo . 72 alcoholic, smoker Status:Active First Degree Relatives Comments:maternal aunt and m aternal uncle type I diabetes Status:Active Maternal Grandfather Comments:emphysema Status:Active Maternal Grandmother Comments:ALS Status:Active Mother Comments:hypothyroid, thromb ocytopenia, aortic stenosis alive Status:Active Paternal Grandfather Comments:heart disease [place] de ceased age 62 Status:Active Paternal Grandmother Comments:heart disease decea sed Status:Active Sister 1 Comments:TYPE II diabetes, H [place], paranoid schizophrenic, arthritis, obese Status:Active Sister 2 Comments:HTN, depression Status:Active Sister 3 Comments:arthritis, fibromya lgia Status:Active Sister 4 Comments:healthy Status:Active Son 1 Comments: MVA in 90's 16 yo. Status:Active Son 2 Comments:Shawn Dudley compute rs Status:Active Unknown Family Member Name Dates Details Daughter 1 Comments:anxiety, [place] [employer] telecom engineer Status:Active Father Comments:colon cancer 65 yo, HTN, stroke 65yo, [place] 72 yo . 72 alcoholic, smoker Status:Active First Degree Relatives Comments:maternal aunt and m aternal uncle type I diabetes Status:Active Maternal Grandfather Comments:emphysema Status:Active Maternal Grandmother Comments:ALS Status:Active Mother Comments:hypothyroid, thromb ocytopenia, aortic stenosis alive Status:Active Paternal Grandfather Comments:heart disease [place] de ceased age 62 Status:Active Paternal Grandmother Comments:heart disease decea sed Status:Active Sister 1 Comments:TYPE II diabetes, H [place], paranoid schizophrenic, arthritis, obese Status:Active Sister 2 Comments:HTN, depression Status:Active Sister 3 Comments:arthritis, fibromya lgia Status:Active Sister 4 Comments:healthy Status:Active Son 1 Comments: MVA in 's 16 yo. Status:Active Son 2 Comments:Shawn Dudley compute rs Status:Active Unknown Family Member Name Dates Details Daughter 1 Comments:anxiety, [place] [employer] engineer Status:Active Father Comments:colon cancer 65 yo, HTN, stroke 65yo, [place] 72 yo . 72 alcoholic, smoker Status:Active First Degree Relatives Comments:maternal aunt and m aternal uncle type I diabetes Status:Active Maternal Grandfather Comments:emphysema Status:Active Maternal Grandmother Comments:ALS Status:Active Mother Comments:hypothyroid, thromb ocytopenia, aortic stenosis, severe anemia ? cause alive Status:Active Paternal Grandfather Comments:heart disease [place] de ceased age 62 Status:Active Paternal Grandmother Comments:heart disease decea sed Status:Active Sister 1 Comments:TYPE II diabetes, H [place], paranoid schizophrenic, arthritis, obese Status:Active Sister 2 Comments:HTN, depression Status:Active Sister 3 Comments:arthritis, fibromya lgia Status:Active Sister 4 Comments:healthy Status:Active Son 1 Comments: MVA in 90's 16 yo. Status:Active Son 2 Comments:Shawn Dudley compute rs Status:Active Unknown Family Member Name Dates Details Daughter 1 Comments:anxiety, [place] [employer] tele[employer] engineer Status:Active Father Comments:colon cancer 65 yo, HTN, stroke 65yo, [place] 72 yo . 72 alcoholic, smoker Status:Active First Degree Relatives Comments:maternal aunt and m aternal uncle type I diabetes Status:Active Maternal Grandfather Comments:emphysema Status:Active Maternal Grandmother Comments:ALS Status:Active Mother Comments:hypothyroid, thromb ocytopenia, aortic stenosis, severe anemia she fell and broke hip and of [place] 2019 Status:Active Paternal Grandfather Comments:heart disease [place] de ceased age 62 Status:Active Paternal Grandmother Comments:heart disease decea sed Status:Active Sister 1 Comments:TYPE II diabetes, H [place], paranoid schizophrenic, arthritis, obese 400 pounds Status:Active Sister 2 Comments:HTN, depression Status:Active Sister 3 Comments:arthritis, fibromya lgia Status:Active Sister 4 Comments:healthy Status:Active Son 1 Comments: MVA in 's 16 yo. Status:Active Son 2 Comments:Shawn Dudley 404 Found! rs Status:Active Unknown Family Member Name Dates Details Daughter 1 Comments:anxiety, [place] [employer] tele[employer] engineer Status:Active Father Comments:colon cancer 65 yo, HTN, stroke 65yo, [place] 72 yo . 72 alcoholic, smoker Status:Active First Degree Relatives Comments:maternal aunt and m aternal uncle type I diabetes Status:Active Maternal Grandfather Comments:emphysema Status:Active Maternal Grandmother Comments:ALS Status:Active Mother Comments:hypothyroid, thromb ocytopenia, aortic stenosis, severe anemia she fell and broke hip and of [place] 2019 Status:Active Paternal Grandfather Comments:heart disease [place] de ceased age 62 Status:Active Paternal Grandmother Comments:heart disease decea sed Status:Active Sister 1 Comments:TYPE II diabetes, H [place], paranoid schizophrenic, arthritis, obese 400 pounds Status:Active Sister 2 Comments:HTN, depression Status:Active Sister 3 Comments:arthritis, fibromya lgia Status:Active Sister 4 Comments:healthy Status:Active Son 1 Comments: MVA in 's 16 yo. Status:Active Son 2 Comments:Shawn Dudley compute [employer] Status:Active Unknown Family Member Name Dates Details Daughter 1 Comments:anxiety, [place] [employer] Status:Active Father Comments:colon cancer 65 yo, HTN, stroke 65yo, [place] 72 yo . 72 alcoholic, smoker Status:Active First Degree Relatives Comments:maternal aunt and m aternal uncle type I diabetes Status:Active Maternal Grandfather Comments:emphysema Status:Active Maternal Grandmother Comments:ALS Status:Active Mother Comments:hypothyroid, thromb ocytopenia, aortic stenosis, severe anemia she fell and broke hip and of [place] 2019 Status:Active Paternal Grandfather Comments:heart disease [place] de ceased age 62 Status:Active Paternal Grandmother Comments:heart disease decea sed Status:Active Sister 1 Comments:TYPE II diabetes, H [place], paranoid schizophrenic, arthritis, obese 400 pounds Status:Active Sister 2 Comments:HTN, depression Status:Active Sister 3 Comments:arthritis, fibromya lgia Status:Active Sister 4 Comments:healthy Status:Active Son 1 Comments: MVA in 's 16 yo. Status:Active Son 2 Comments:Shawn Dudley compute [employer] Status:Active Unknown Family Member Name Dates Details Daughter 1 Comments:anxiety, [employer] Status:Active Father Comments:colon cancer 65 yo, HTN, stroke 65yo, ME 72 yo . 72 alcoholic, smoker Status:Active First Degree Relatives Comments:maternal aunt and m aternal uncle type I diabetes Status:Active Maternal Grandfather Comments:emphysema Status:Active Maternal Grandmother Comments:ALS Status:Active Mother Comments:hypothyroid, thromb ocytopenia, aortic stenosis, severe anemia she fell and broke hip and of [place] 2019 Status:Active Paternal Grandfather Comments:heart disease [place] de ceased age 62 Status:Active Paternal Grandmother Comments:heart disease decea sed Status:Active Sister 1 Comments:TYPE II diabetes, H [place], paranoid schizophrenic, arthritis, obese 400 pounds Status:Active Sister 2 Comments:HTN, depression Status:Active Sister 3 Comments:arthritis, fibromya lgia Status:Active Sister 4 Comments:healthy Status:Active Son 1 Comments: MVA in 90's 16 yo. Status:Active Son 2 Comments:Shawn Dudley compute [employer] Status:Active Unknown Family Member Name Dates Details Daughter 1 Comments:anxiety, [employer] Status:Active Father Comments:colon cancer 65 yo, HTN, stroke 65yo, ME start in late 50's then ME 72 yo . 72 alcoholic, smoker Status:Active First Degree Relatives Comments:maternal aunt and m aternal uncle type I diabetes Status:Active Maternal Grandfather Comments:emphysema Status:Active Maternal Grandmother Comments:ALS Status:Active Mother Comments:hypothyroid, thromb ocytopenia, aortic stenosis, severe anemia she fell and broke hip and of [place] 2019 Status:Active Paternal Grandfather Comments:heart disease [place] de ceased age 62 Status:Active Paternal Grandmother Comments:heart disease decea sed Status:Active Sister 1 Comments:TYPE II diabetes, H [place], paranoid schizophrenic, arthritis, obese 400 pounds Status:Active Sister 2 Comments:HTN, depression Status:Active Sister 3 Comments:arthritis, fibromya lgia Status:Active Sister 4 Comments:healthy Status:Active Son 1 Comments: MVA in 's 16 yo. Status:Active Son 2 Comments:Shawn Dudley compute [employer] Status:Active Unknown Family Member Name Dates Details Daughter 1 Comments:anxiety, [employer] Status:Active Father Comments:colon cancer 65 yo, HTN, stroke 65yo, ME start in late 50's then ME 72 yo . 72 alcoholic, smoker Status:Active First Degree Relatives Comments:maternal aunt and m aternal uncle type I diabetes Status:Active Maternal Grandfather Comments:emphysema Status:Active Maternal Grandmother Comments:ALS Status:Active Mother Comments:hypothyroid, thromb ocytopenia, aortic stenosis, severe anemia she fell and broke hip and of [place] 2019 Status:Active Paternal Grandfather Comments:heart disease [place] de ceased age 62 Status:Active Paternal Grandmother Comments:heart disease decea sed Status:Active Sister 1 Comments:TYPE II diabetes, H [place], paranoid schizophrenic, arthritis, obese 400 pounds Status:Active Sister 2 Comments:HTN, depression Status:Active Sister 3 Comments:arthritis, fibromya lgia Status:Active Sister 4 Comments:healthy Status:Active Son 1 Comments: MVA in 's 16 yo. Status:Active Son 2 Comments:Shawn Dudley compute [employer] Status:Active Unknown Family Member Name Dates Details Daughter 1 Comments:anxiety, [employer] Status:Active Father Comments:colon cancer 65 yo, HTN, stroke 65yo, ME start in late 50's then ME 72 yo . 72 alcoholic, smoker Status:Active First Degree Relatives Comments:maternal aunt and m aternal uncle type I diabetes Status:Active Maternal Grandfather Comments:emphysema Status:Active Maternal Grandmother Comments:ALS Status:Active Mother Comments:hypothyroid, thromb ocytopenia, aortic stenosis, severe anemia she fell and broke hip and of [place] 2019 Status:Active Paternal Grandfather Comments:heart disease ME de ceased age 62 Status:Active Paternal Grandmother Comments:heart disease decea sed Status:Active Sister 1 Comments:TYPE II diabetes, H [place], paranoid schizophrenic, arthritis, obese 400 pounds Status:Active Sister 2 Comments:HTN, depression Status:Active Sister 3 Comments:arthritis, fibromya lgia Status:Active Sister 4 Comments:healthy Status:Active Son 1 Comments: MVA in 's 16 yo. Status:Active Son 2 Comments:Luis Enrique, [place] [employer] Status:Active Unknown Family Member Name Dates Details Daughter 1 Comments:anxiety, [employer] Status:Active Father Comments:colon cancer 65 yo, HTN, stroke 65yo, ME start in late 50's then ME 72 yo . 72 alcoholic, smoker Status:Active First Degree Relatives Comments:maternal aunt and m aternal uncle type I diabetes Status:Active Maternal Grandfather Comments:emphysema Status:Active Maternal Grandmother Comments:ALS Status:Active Mother Comments:hypothyroid, thromb ocytopenia, aortic stenosis, severe anemia she fell and broke hip and of [place] 2019 Status:Active Paternal Grandfather Comments:heart disease ME de ceased age 62 Status:Active Paternal Grandmother Comments:heart disease decea sed Status:Active Sister 1 Comments:TYPE II diabetes, H [place], paranoid schizophrenic, arthritis, obese 400 pounds Status:Active Sister 2 Comments:HTN, depression Status:Active Sister 3 Comments:arthritis, fibromya lgia Status:Active Sister 4 Comments:healthy Status:Active Son 1 Comments: MVA in 's 16 yo. Status:Active Son 2 Comments:Luis Enrique, [place] [employer] Status:Active Unknown Family Member Name Dates Details Daughter 1 Comments:anxiety, [employer] Status:Active Father Comments:colon cancer 65 yo, HTN, stroke 65yo, ME start in late 50's then ME 72 yo . 72 alcoholic, smoker Status:Active First Degree Relatives Comments:maternal aunt and m aternal uncle type I diabetes Status:Active Maternal Grandfather Comments:emphysema Status:Active Maternal Grandmother Comments:ALS Status:Active Mother Comments:hypothyroid, thromb ocytopenia, aortic stenosis, severe anemia she fell and broke hip and of [place] 2019 Status:Active Paternal Grandfather Comments:heart disease ME de ceased age 62 Status:Active Paternal Grandmother Comments:heart disease decea sed Status:Active Sister 1 Comments:TYPE II diabetes, H [place], paranoid schizophrenic, arthritis, obese 400 pounds Status:Active Sister 2 Comments:HTN, depression Status:Active Sister 3 Comments:arthritis, fibromya lgia Status:Active Sister 4 Comments:healthy Status:Active Son 1 Comments: MVA in 's 16 yo. Status:Active Son 2 Comments:[place] compute rs Status:Active Unknown Family Member Name Dates Details Daughter 1 Comments:anxiety, [employer] Status:Active Father Comments:colon cancer 65 yo, HTN, stroke 65yo, ME start in late 50's then ME 72 yo . 72 alcoholic, smoker Status:Active First Degree Relatives Comments:maternal aunt and m aternal uncle type I diabetes Status:Active Maternal Grandfather Comments:emphysema Status:Active Maternal Grandmother Comments:ALS Status:Active Mother Comments:hypothyroid, thromb ocytopenia, aortic stenosis, severe anemia she fell and broke hip and of ME 2019 Status:Active Paternal Grandfather Comments:heart disease ME de ceased age 62 Status:Active Paternal Grandmother Comments:heart disease decea sed Status:Active Sister 1 Comments:TYPE II diabetes, H [place], paranoid schizophrenic, arthritis, obese 400 pounds Status:Active Sister 2 Comments:HTN, depression Status:Active Sister 3 Comments:arthritis, fibromya lgia Status:Active Sister 4 Comments:healthy Status:Active Son 1 Comments: MVA in 's 16 yo. Status:Active Son 2 Comments:[place], [place] compute [place] Status:Active Unknown Family Member Name Dates Details Daughter 1 Comments:anxiety, [employer] Status:Active Father Comments:colon cancer 65 yo, HTN, stroke 65yo, ME start in late 50's then ME 72 yo . 72 alcoholic, smoker Status:Active First Degree Relatives Comments:maternal aunt and m aternal uncle type I diabetes Status:Active Maternal Grandfather Comments:emphysema Status:Active Maternal Grandmother Comments:ALS Status:Active Mother Comments:hypothyroid, thromb ocytopenia, aortic stenosis, severe anemia she fell and broke hip and of ME 2019 Status:Active Paternal Grandfather Comments:heart disease ME de ceased age 62 Status:Active Paternal Grandmother Comments:heart disease decea sed Status:Active Sister 1 Comments:TYPE II diabetes, H [place], paranoid schizophrenic, arthritis, obese 400 pounds Status:Active Sister 2 Comments:HTN, depression Status:Active Sister 3 Comments:arthritis, fibromya lgia Status:Active Sister 4 Comments:healthy Status:Active Son 1 Comments: MVA in s 16 yo. Status:Active Son 2 Comments:Luis Enrique [place] [employer] Status:Active Unknown Family Member Name Dates Details Daughter 1 Comments:anxiety, [employer] Status:Active Father Comments:colon cancer 65 yo, HTN, stroke 65yo, ME start in late 50's then ME 72 yo . 72 alcoholic, smoker Status:Active First Degree Relatives Comments:maternal aunt and m aternal uncle type I diabetes Status:Active Maternal Grandfather Comments:emphysema Status:Active Maternal Grandmother Comments:ALS Status:Active Mother Comments:hypothyroid, thromb ocytopenia, aortic stenosis, severe anemia she fell and broke hip and of ME 2019 Status:Active Paternal Grandfather Comments:heart disease ME de ceased age 62 Status:Active Paternal Grandmother Comments:heart disease decea sed Status:Active Sister 1 Comments:TYPE II diabetes, H [place], paranoid schizophrenic, arthritis, obese 400 pounds Status:Active Sister 2 Comments:HTN, depression Status:Active Sister 3 Comments:arthritis, fibromya lgia Status:Active Sister 4 Comments:healthy Status:Active Son 1 Comments: MVA in s 16 yo. Status:Active Son 2 Comments:Luis Enrique [place] [employer] Status:Active Unknown Family Member Name Dates Details Daughter 1 Comments:anxiety, [employer] Status:Active Father Comments:colon cancer 65 yo, HTN, stroke 65yo, ME start in late 50's then ME 72 yo . 72 alcoholic, smoker Status:Active First Degree Relatives Comments:maternal aunt and m aternal uncle type I diabetes Status:Active Maternal Grandfather Comments:emphysema Status:Active Maternal Grandmother Comments:ALS Status:Active Mother Comments:hypothyroid, thromb ocytopenia, aortic stenosis, severe anemia she fell and broke hip and of ME 2019 Status:Active Paternal Grandfather Comments:heart disease [place] de ceased age 62 Status:Active Paternal Grandmother Comments:heart disease decea sed Status:Active Sister 1 Comments:TYPE II diabetes, H [place], paranoid schizophrenic, arthritis, obese 400 pounds Status:Active Sister 2 Comments:HTN, depression Status:Active Sister 3 Comments:arthritis, fibromya lgia Status:Active Sister 4 Comments:healthy Status:Active Son 1 Comments: MVA in 16 yo. Status:Active Son 2 Comments:Luis Enrique [place] [employer] Status:Active Unknown Family Member Name Dates Details Daughter 1 Comments:anxiety, [employer] Status:Active Father Comments:colon cancer 65 yo, HTN, stroke 65yo, ME start in late 50's then ME 72 yo . 72 alcoholic, smoker Status:Active First Degree Relatives Comments:maternal aunt and m aternal uncle type I diabetes Status:Active Maternal Grandfather Comments:emphysema Status:Active Maternal Grandmother Comments:ALS Status:Active Mother Comments:hypothyroid, thromb ocytopenia, aortic stenosis, severe anemia she fell and broke hip and of [place] 2019 Status:Active Paternal Grandfather Comments:heart disease [place] de ceased age 62 Status:Active Paternal Grandmother Comments:heart disease decea sed Status:Active Sister 1 Comments:TYPE II diabetes, H [place], paranoid schizophrenic, arthritis, obese 400 pounds Status:Active Sister 2 Comments:HTN, depression Status:Active Sister 3 Comments:arthritis, fibromya lgia Status:Active Sister 4 Comments:healthy Status:Active Son 1 Comments: MVA in 16 yo. Status:Active Son 2 Comments:Shawn Dudley compute [employer] Status:Active Unknown Family Member Name Dates Details Daughter 1 Comments:anxiety, [employer] Status:Active Father Comments:colon cancer 65 yo, HTN, stroke 65yo, ME start in late 50's then [place] 72 yo . 72 alcoholic, smoker Status:Active First Degree Relatives Comments:maternal aunt and m aternal uncle type I diabetes Status:Active Maternal Grandfather Comments:emphysema Status:Active Maternal Grandmother Comments:ALS Status:Active Mother Comments:hypothyroid, thromb ocytopenia, aortic stenosis, severe anemia she fell and broke hip and of [place] 2019 Status:Active Paternal Grandfather Comments:heart disease ME de ceased age 62 Status:Active Paternal Grandmother Comments:heart disease decea sed Status:Active Sister 1 Comments:TYPE II diabetes, H [place], paranoid schizophrenic, arthritis, obese 400 pounds Status:Active Sister 2 Comments:HTN, depression Status:Active Sister 3 Comments:arthritis, fibromya lgia Status:Active Sister 4 Comments:healthy Status:Active Son 1 Comments: MVA in s 16 yo. Status:Active Son 2 Comments:Luis Enrique [place] compute [employer] Status:Active Unknown Family Member Name Dates Details Daughter 1 Comments:anxiety, [employer] Status:Active Father Comments:colon cancer 65 yo, HTN, stroke 65yo, ME start in late 50's then ME 72 yo . 72 alcoholic, smoker Status:Active First Degree Relatives Comments:maternal aunt and m aternal uncle type I diabetes Status:Active Maternal Grandfather Comments:emphysema Status:Active Maternal Grandmother Comments:ALS Status:Active Mother Comments:hypothyroid, thromb ocytopenia, aortic stenosis, severe anemia she fell and broke hip and of ME 2019 Status:Active Paternal Grandfather Comments:heart disease ME de ceased age 62 Status:Active Paternal Grandmother Comments:heart disease decea sed Status:Active Sister 1 Comments:TYPE II diabetes, H [place], paranoid schizophrenic, arthritis, obese 400 pounds Status:Active Sister 2 Comments:HTN, depression Status:Active Sister 3 Comments:arthritis, fibromya lgia Status:Active Sister 4 Comments:healthy Status:Active Son 1 Comments: MVA in s 16 yo. Status:Active Son 2 Comments:Luis Enrique [place] compute [employer] Status:Active Unknown Family Member Name Dates Details Daughter 1 Comments:anxiety, [employer] Status:Active Father Comments:colon cancer 65 yo, HTN, stroke 65yo, ME start in late 50's then ME 72 yo . 72 alcoholic, smoker Status:Active First Degree Relatives Comments:maternal aunt and m aternal uncle type I diabetes Status:Active Maternal Grandfather Comments:emphysema Status:Active Maternal Grandmother Comments:ALS Status:Active Mother Comments:hypothyroid, thromb ocytopenia, aortic stenosis, severe anemia she fell and broke hip and of ME 2019 Status:Active Paternal Grandfather Comments:heart disease ME de ceased age 62 Status:Active Paternal Grandmother Comments:heart disease decea sed Status:Active Sister 1 Comments:TYPE II diabetes, H [place], paranoid schizophrenic, arthritis, obese 400 pounds Status:Active Sister 2 Comments:HTN, depression Status:Active Sister 3 Comments:arthritis, fibromya lgia Status:Active Sister 4 Comments:healthy Status:Active Son 1 Comments: MVA in s 16 yo. Status:Active Son 2 Comments:Luis Enrique, [place] compute [employer] Status:Active Unknown Family Member Name Dates Details Daughter 1 Comments:anxiety, [employer] Status:Active Father Comments:colon cancer 65 yo, HTN, stroke 65yo, ME start in late 50's then ME 72 yo . 72 alcoholic, smoker Status:Active First Degree Relatives Comments:maternal aunt and m aternal uncle type I diabetes Status:Active Maternal Grandfather Comments:emphysema Status:Active Maternal Grandmother Comments:ALS Status:Active Mother Comments:hypothyroid, thromb ocytopenia, aortic stenosis, severe anemia she fell and broke hip and of ME 2019 Status:Active Paternal Grandfather Comments:heart disease ME de ceased age 62 Status:Active Paternal Grandmother Comments:heart disease decea sed Status:Active Sister 1 Comments:TYPE II diabetes, H [place], paranoid schizophrenic, arthritis, obese 400 pounds Status:Active Sister 2 Comments:HTN, depression Status:Active Sister 3 Comments:arthritis, fibromya lgia Status:Active Sister 4 Comments:healthy Status:Active Son 1 Comments: MVA in s 16 yo. Status:Active Son 2 Comments:Luis Enrique [place] [employer] Status:Active Unknown Family Member Name Dates Details Daughter 1 Comments:anxiety, [employer] Status:Active Father Comments:colon cancer 65 yo, HTN, stroke 65yo, ME start in late 50's then ME 72 yo . 72 alcoholic, smoker Status:Active First Degree Relatives Comments:maternal aunt and m aternal uncle type I diabetes Status:Active Maternal Grandfather Comments:emphysema Status:Active Maternal Grandmother Comments:ALS Status:Active Mother Comments:hypothyroid, thromb ocytopenia, aortic stenosis, severe anemia she fell and broke hip and of ME 2019 Status:Active Paternal Grandfather Comments:heart disease ME de ceased age 62 Status:Active Paternal Grandmother Comments:heart disease decea sed Status:Active Sister 1 Comments:TYPE II diabetes, H [place], paranoid schizophrenic, arthritis, obese 400 pounds Status:Active Sister 2 Comments:HTN, depression Status:Active Sister 3 Comments:arthritis, fibromya lgia Status:Active Sister 4 Comments:healthy Status:Active Son 1 Comments: MVA in s 16 yo. Status:Active Son 2 Comments:Luis Enrique [place] [employer] Status:Active Unknown Family Member Name Dates Details Daughter 1 Comments:anxiety, [employer] Status:Active Father Comments:colon cancer 65 yo, HTN, stroke 65yo, CAD start in late 50's then ME 72 yo . 72 alcoholic, smoker Status:Active First Degree Relatives Comments:maternal aunt and m aternal uncle type I diabetes Status:Active Maternal Grandfather Comments:emphysema Status:Active Maternal Grandmother Comments:ALS Status:Active Mother Comments:hypothyroid, thromb ocytopenia, aortic stenosis, severe anemia she fell and broke hip and of ME 2019 Status:Active Paternal Grandfather Comments:heart disease ME de ceased age 62 Status:Active Paternal Grandmother Comments:heart disease decea sed Status:Active Sister 1 Comments:TYPE II diabetes, H [place], paranoid schizophrenic, arthritis, obese 400 pounds Status:Active Sister 2 Comments:HTN, depression Status:Active Sister 3 Comments:arthritis, fibromya lgia Status:Active Sister 4 Comments:healthy Status:Active Son 1 Comments: MVA in s 16 yo. Status:Active Son 2 Comments:Luis Enrique [place] compute [employer] Status:Active Unknown Family Member Name Dates Details Daughter 1 Comments:anxiety, [employer] Status:Active Father Comments:colon cancer 65 yo, HTN, stroke 65yo, [place] 72 yo . 72 alcoholic, smoker Status:Active First Degree Relatives Comments:maternal aunt and m aternal uncle type I diabetes Status:Active Maternal Grandfather Comments:emphysema Status:Active Maternal Grandmother Comments:ALS Status:Active Mother Comments:hypothyroid, thromb ocytopenia, aortic stenosis, severe anemia ? cause alive Status:Active Paternal Grandfather Comments:heart disease [place] de ceased age 62 Status:Active Paternal Grandmother Comments:heart disease decea sed Status:Active Sister 1 Comments:TYPE II diabetes, H [place], paranoid schizophrenic, arthritis, obese Status:Active Sister 2 Comments:HTN, depression Status:Active Sister 3 Comments:arthritis, fibromya lgia Status:Active Sister 4 Comments:healthy Status:Active Son 1 Comments: MVA in 90's 16 yo. Status:Active Son 2 Comments:Shawn Dudley compute [employer] Status:Active Unknown Family Member Name Dates Details Daughter 1 Comments:anxiety, [employer] Status:Active Father Comments:colon cancer 65 yo, HTN, stroke 65yo, CAD start in late 50's then ME 72 yo . 72 alcoholic, smoker Status:Active First Degree Relatives Comments:maternal aunt and m aternal uncle type I diabetes Status:Active Maternal Grandfather Comments:emphysema Status:Active Maternal Grandmother Comments:ALS Status:Active Mother Comments:hypothyroid, thromb ocytopenia, aortic stenosis, severe anemia she fell and broke hip and of ME 2019 Status:Active Paternal Grandfather Comments:heart disease [place] de ceased age 62 Status:Active Paternal Grandmother Comments:heart disease decea sed Status:Active Sister 1 Comments:TYPE II diabetes, H [place], paranoid schizophrenic, arthritis, obese 400 pounds Status:Active Sister 2 Comments:HTN, depression Status:Active Sister 3 Comments:arthritis, fibromya lgia Status:Active Sister 4 Comments:healthy Status:Active Son 1 Comments: MVA in 90's 16 yo. Status:Active Son 2 Comments:Shawn Dudley compute [employer] Status:Active Unknown Family Member Name Dates Details Daughter 1 Comments:anxiety, [employer] Status:Active Father Comments:colon cancer 65 yo, HTN, stroke 65yo, ME start in late 50's then ME 72 yo . 72 alcoholic, smoker Status:Active First Degree Relatives Comments:maternal aunt and m aternal uncle type I diabetes Status:Active Maternal Grandfather Comments:emphysema Status:Active Maternal Grandmother Comments:ALS Status:Active Mother Comments:hypothyroid, thromb ocytopenia, aortic stenosis, severe anemia she fell and broke hip and of ME 2019 Status:Active Paternal Grandfather Comments:heart disease ME de ceased age 62 Status:Active Paternal Grandmother Comments:heart disease decea sed Status:Active Sister 1 Comments:TYPE II diabetes, H [place], paranoid schizophrenic, arthritis, obese 400 pounds Status:Active Sister 2 Comments:HTN, depression Status:Active Sister 3 Comments:arthritis, fibromya lgia Status:Active Sister 4 Comments:healthy Status:Active Son 1 Comments: MVA in 90's 16 yo. Status:Active Son 2 Comments:Shawn Dudley compute [employer] Status:Active Unknown Family Member Name Dates Details Daughter 1 Comments:anxiety, [employer] Status:Active Father Comments:colon cancer 65 yo, HTN, stroke 65yo, ME start in late 50's then ME 72 yo . 72 alcoholic, smoker Status:Active First Degree Relatives Comments:maternal aunt and m aternal uncle type I diabetes Status:Active Maternal Grandfather Comments:emphysema Status:Active Maternal Grandmother Comments:ALS Status:Active Mother Comments:hypothyroid, thromb ocytopenia, aortic stenosis, severe anemia she fell and broke hip and of ME 2019 Status:Active Paternal Grandfather Comments:heart disease [place] de ceased age 62 Status:Active Paternal Grandmother Comments:heart disease decea sed Status:Active Sister 1 Comments:TYPE II diabetes, H [place], paranoid schizophrenic, arthritis, obese 400 pounds Status:Active Sister 2 Comments:HTN, depression Status:Active Sister 3 Comments:arthritis, fibromya lgia Status:Active Sister 4 Comments:healthy Status:Active Son 1 Comments: MVA in 90's 16 yo. Status:Active Son 2 Comments:Shawn Dudley compute [employer] Status:Active Unknown Family Member Name Dates Details Daughter 1 Comments:anxiety, [employer] Status:Active Father Comments:colon cancer 65 yo, HTN, stroke 65yo, CAD start in late 50's then ME 72 yo . 72 alcoholic, smoker Status:Active First Degree Relatives Comments:maternal aunt and m aternal uncle type I diabetes Status:Active Maternal Grandfather Comments:emphysema Status:Active Maternal Grandmother Comments:ALS Status:Active Mother Comments:hypothyroid, thromb ocytopenia, aortic stenosis, severe anemia she fell and broke hip and of [place] 2019 Status:Active Paternal Grandfather Comments:heart disease ME de ceased age 62 Status:Active Paternal Grandmother Comments:heart disease decea sed Status:Active Sister 1 Comments:TYPE II diabetes, [place], paranoid schizophrenic, arthritis, obese 400 pounds Status:Active Sister 2 Comments:HTN, depression Status:Active Sister 3 Comments:arthritis, fibromya lgia Status:Active Sister 4 Comments:healthy Status:Active Son 1 Comments: MVA in 90's 16 yo. Status:Active Son 2 Comments:Shawn Dudley compute rs Status:Active Unknown Family Member Name Dates Details Daughter 1 Comments:anxiety, [employer] Status:Active Father Comments:colon cancer 65 yo, HTN, stroke 65yo, CAD start in late 50's then [place] 72 yo . 72 alcoholic, smoker Status:Active First Degree Relatives Comments:maternal aunt and m aternal uncle type I diabetes Status:Active Maternal Grandfather Comments:emphysema Status:Active Maternal Grandmother Comments:ALS Status:Active Mother Comments:hypothyroid, thromb ocytopenia, aortic stenosis, severe anemia she fell and broke hip and of [place] 2019 Status:Active Paternal Grandfather Comments:heart disease ME de ceased age 62 Status:Active Paternal Grandmother Comments:heart disease decea sed Status:Active Sister 1 Comments:TYPE II diabetes, [place], paranoid schizophrenic, arthritis, obese 400 pounds Status:Active Sister 2 Comments:HTN, depression Status:Active Sister 3 Comments:arthritis, fibromya lgia Status:Active Sister 4 Comments:healthy Status:Active Son 1 Comments: MVA in 90's 16 yo. Status:Active Son 2 Comments:Shawn Dudley compute rs Status:Active Unknown Family Member Name Dates Details Daughter 1 Comments:anxiety, [employer] Status:Active Father Comments:colon cancer 65 yo, HTN, stroke 65yo, ME start in late 50's then [place] 72 yo . 72 alcoholic, smoker Status:Active First Degree Relatives Comments:maternal aunt and m aternal uncle type I diabetes Status:Active Maternal Grandfather Comments:emphysema Status:Active Maternal Grandmother Comments:ALS Status:Active Mother Comments:hypothyroid, thromb ocytopenia, aortic stenosis, severe anemia she fell and broke hip and of [place] 2019 Status:Active Paternal Grandfather Comments:heart disease ME de ceased age 62 Status:Active Paternal Grandmother Comments:heart disease decea sed Status:Active Sister 1 Comments:TYPE II diabetes, [place], paranoid schizophrenic, arthritis, obese 400 pounds Status:Active Sister 2 Comments:HTN, depression Status:Active Sister 3 Comments:arthritis, fibromya lgia Status:Active Sister 4 Comments:healthy Status:Active Son 1 Comments: MVA in 's 16 yo. Status:Active Son 2 Comments:[place] compute rs Status:Active Unknown Family Member Name Dates Details Daughter 1 Comments:anxiety, [employer] Status:Active Father Comments:colon cancer 65 yo, HTN, stroke 65yo, CAD start in late 50's then [place] 72 yo . 72 alcoholic, smoker Status:Active First Degree Relatives Comments:maternal aunt and m aternal uncle type I diabetes Status:Active Maternal Grandfather Comments:emphysema Status:Active Maternal Grandmother Comments:ALS Status:Active Mother Comments:hypothyroid, thromb ocytopenia, aortic stenosis, severe anemia she fell and broke hip and of [place] 2018 Status:Active Paternal Grandfather Comments:heart disease ME de ceased age 62 Status:Active Paternal Grandmother Comments:heart disease decea sed Status:Active Sister 1 Comments:TYPE II diabetes, [place], paranoid schizophrenic, arthritis, obese 400 pounds Status:Active Sister 2 Comments:HTN, depression Status:Active Sister 3 Comments:arthritis, fibromya lgia Status:Active Sister 4 Comments:healthy Status:Active Son 1 Comments: MVA in 's 16 yo. Status:Active Son 2 Comments:[place], [place] compute rs Status:Active Unknown Family Member Name Dates Details Daughter 1 Comments:anxiety, [employer] Status:Active Father Comments:colon cancer 65 yo, HTN, stroke 65yo, ME start in late 50's then [place] 72 yo . 72 alcoholic, smoker Status:Active First Degree Relatives Comments:maternal aunt and m aternal uncle type I diabetes Status:Active Maternal Grandfather Comments:emphysema Status:Active Maternal Grandmother Comments:ALS Status:Active Mother Comments:hypothyroid, thromb ocytopenia, aortic stenosis, severe anemia she fell and broke hip and of [place] 2019 Status:Active Paternal Grandfather Comments:heart disease ME de ceased age 62 Status:Active Paternal Grandmother Comments:heart disease decea sed Status:Active Sister 1 Comments:TYPE II diabetes, [place], paranoid schizophrenic, arthritis, obese 400 pounds Status:Active Sister 2 Comments:HTN, depression Status:Active Sister 3 Comments:arthritis, fibromya lgia Status:Active Sister 4 Comments:healthy Status:Active Son 1 Comments: MVA in 90's 16 yo. Status:Active Son 2 Comments:[place], [place] compute rs Status:Active Unknown Family Member Name Dates Details Daughter 1 Comments:anxiety, [employer] Status:Active Father Comments:colon cancer 65 yo, HTN, stroke 65yo, CAD start in late 50's then ME 72 yo . 72 alcoholic, smoker Status:Active First Degree Relatives Comments:maternal aunt and m aternal uncle type I diabetes Status:Active Maternal Grandfather Comments:emphysema Status:Active Maternal Grandmother Comments:ALS Status:Active Mother Comments:hypothyroid, thromb ocytopenia, aortic stenosis, severe anemia she fell and broke hip and of ME 2018 Status:Active Paternal Grandfather Comments:heart disease ME de ceased age 62 Status:Active Paternal Grandmother Comments:heart disease decea sed Status:Active Sister 1 Comments:TYPE II diabetes, [place], paranoid schizophrenic, arthritis, obese 400 pounds Status:Active Sister 2 Comments:HTN, depression Status:Active Sister 3 Comments:arthritis, fibromya lgia Status:Active Sister 4 Comments:healthy Status:Active Son 1 Comments: MVA in 90's 16 yo. Status:Active Son 2 Comments:[place], [place] compute rs Status:Active Unknown Family Member Name Dates Details Daughter 1 Comments:anxiety, [employer] Status:Active Father Comments:colon cancer 65 yo, HTN, stroke 65yo, CAD start in late 50's then ME 72 yo . 72 alcoholic, smoker Status:Active First Degree Relatives Comments:maternal aunt and m aternal uncle type I diabetes Status:Active Maternal Grandfather Comments:emphysema Status:Active Maternal Grandmother Comments:ALS Status:Active Mother Comments:hypothyroid, thromb ocytopenia, aortic stenosis, severe anemia she fell and broke hip and of [place] 2019 Status:Active Paternal Grandfather Comments:heart disease ME de ceased age 62 Status:Active Paternal Grandmother Comments:heart disease decea sed Status:Active Sister 1 Comments:TYPE II diabetes, [place], paranoid schizophrenic, arthritis, obese 400 pounds Status:Active Sister 2 Comments:HTN, depression Status:Active Sister 3 Comments:arthritis, fibromya lgia Status:Active Sister 4 Comments:healthy Status:Active Son 1 Comments: MVA in 's 16 yo. Status:Active Son 2 Comments:[place], [place] compute rs Status:Active Unknown Family Member Name Dates Details Daughter 1 Comments:anxiety, [employer] Status:Active Father Comments:colon cancer 65 yo, HTN, stroke 65yo, CAD start in late 50's then ME 72 yo . 72 alcoholic, smoker Status:Active First Degree Relatives Comments:maternal aunt and m aternal uncle type I diabetes Status:Active Maternal Grandfather Comments:emphysema Status:Active Maternal Grandmother Comments:ALS Status:Active Mother Comments:hypothyroid, thromb ocytopenia, aortic stenosis, severe anemia she fell and broke hip and of [place] 2019 Status:Active Paternal Grandfather Comments:heart disease ME de ceased age 62 Status:Active Paternal Grandmother Comments:heart disease decea sed Status:Active Sister 1 Comments:TYPE II diabetes, [place], paranoid schizophrenic, arthritis, obese 400 pounds Status:Active Sister 2 Comments:HTN, depression Status:Active Sister 3 Comments:arthritis, fibromya lgia Status:Active Sister 4 Comments:healthy Status:Active Son 1 Comments: MVA in 's 16 yo. Status:Active Son 2 Comments:[place], [place] compute rs Status:Active Unknown Family Member Name Dates Details Daughter 1 Comments:anxiety, [employer] Status:Active Father Comments:colon cancer 65 yo, HTN, stroke 65yo, CAD start in late 50's then [place] 72 yo . 72 alcoholic, smoker Status:Active First Degree Relatives Comments:maternal aunt and m aternal uncle type I diabetes Status:Active Maternal Grandfather Comments:emphysema Status:Active Maternal Grandmother Comments:ALS Status:Active Mother Comments:hypothyroid, thromb ocytopenia, aortic stenosis, severe anemia she fell and broke hip and of [place] 2019 Status:Active Paternal Grandfather Comments:heart disease ME de ceased age 62 Status:Active Paternal Grandmother Comments:heart disease decea sed Status:Active Sister 1 Comments:TYPE II diabetes, [place], paranoid schizophrenic, arthritis, obese 400 pounds Status:Active Sister 2 Comments:HTN, depression Status:Active Sister 3 Comments:arthritis, fibromya lgia Status:Active Sister 4 Comments:healthy Status:Active Son 1 Comments: MVA in 's 16 yo. Status:Active Son 2 Comments:Luis Enrique [place] compute rs Status:Active Unknown Family Member Name Dates Details Daughter 1 Comments:anxiety, [employer] Status:Active Father Comments:colon cancer 65 yo, HTN, stroke 65yo, CAD start in late 50's then [place] 72 yo . 72 alcoholic, smoker Status:Active First Degree Relatives Comments:maternal aunt and m aternal uncle type I diabetes Status:Active Maternal Grandfather Comments:emphysema Status:Active Maternal Grandmother Comments:ALS Status:Active Mother Comments:hypothyroid, thromb ocytopenia, aortic stenosis, severe anemia she fell and broke hip and of [place] 2019 Status:Active Paternal Grandfather Comments:heart disease ME de ceased age 62 Status:Active Paternal Grandmother Comments:heart disease decea sed Status:Active Sister 1 Comments:TYPE II diabetes, [place], paranoid schizophrenic, arthritis, obese 400 pounds Status:Active Sister 2 Comments:HTN, depression Status:Active Sister 3 Comments:arthritis, fibromya lgia Status:Active Sister 4 Comments:healthy Status:Active Son 1 Comments: MVA in 's 16 yo. Status:Active Son 2 Comments:Shawn Dudley compute rs Status:Active Unknown Family Member Name Dates Details Daughter 1 Comments:anxiety, [employer] Status:Active Father Comments:colon cancer 65 yo, HTN, stroke 65yo, CAD start in late 50's then [place] 72 yo . 72 alcoholic, smoker Status:Active First Degree Relatives Comments:maternal aunt and m aternal uncle type I diabetes Status:Active Maternal Grandfather Comments:emphysema Status:Active Maternal Grandmother Comments:ALS Status:Active Mother Comments:hypothyroid, thromb ocytopenia, aortic stenosis, severe anemia she fell and broke hip and of ME 2019 Status:Active Paternal Grandfather Comments:heart disease ME de ceased age 62 Status:Active Paternal Grandmother Comments:heart disease decea sed Status:Active Sister 1 Comments:TYPE II diabetes, [place], paranoid schizophrenic, arthritis, obese 400 pounds Status:Active Sister 2 Comments:HTN, depression Status:Active Sister 3 Comments:arthritis, fibromya lgia Status:Active Sister 4 Comments:healthy Status:Active Son 1 Comments: MVA in 's 16 yo. Status:Active Son 2 Comments:Shawn Dudley compute rs Status:Active Unknown Family Member Name Dates Details Daughter 1 Comments:anxiety, [employer] Status:Active Father Comments:colon cancer 65 yo, HTN, stroke 65yo, CAD start in late 50's then [place] 72 yo . 72 alcoholic, smoker Status:Active First Degree Relatives Comments:maternal aunt and m aternal uncle type I diabetes Status:Active Maternal Grandfather Comments:emphysema Status:Active Maternal Grandmother Comments:ALS Status:Active Mother Comments:hypothyroid, thromb ocytopenia, aortic stenosis, severe anemia she fell and broke hip and of [place] 2019 Status:Active Paternal Grandfather Comments:heart disease ME de ceased age 62 Status:Active Paternal Grandmother Comments:heart disease decea sed Status:Active Sister 1 Comments:TYPE II diabetes, [place], paranoid schizophrenic, arthritis, obese 400 pounds Status:Active Sister 2 Comments:HTN, depression Status:Active Sister 3 Comments:arthritis, fibromya lgia Status:Active Sister 4 Comments:healthy Status:Active Son 1 Comments: MVA in 's 16 yo. Status:Active Son 2 Comments:Shawn Dudley compute rs Status:Active Unknown Family Member Name Dates Details Daughter 1 Comments:anxiety, [employer] Status:Active Father Comments:colon cancer 65 yo, HTN, stroke 65yo, CAD start in late 50's then [place] 72 yo . 72 alcoholic, smoker Status:Active First Degree Relatives Comments:maternal aunt and m aternal uncle type I diabetes Status:Active Maternal Grandfather Comments:emphysema Status:Active Maternal Grandmother Comments:ALS Status:Active Mother Comments:hypothyroid, thromb ocytopenia, aortic stenosis, severe anemia she fell and broke hip and of ME 2019 Status:Active Paternal Grandfather Comments:heart disease ME de ceased age 62 Status:Active Paternal Grandmother Comments:heart disease decea sed Status:Active Sister 1 Comments:TYPE II diabetes, H [place], paranoid schizophrenic, arthritis, obese 400 pounds Status:Active Sister 2 Comments:HTN, depression Status:Active Sister 3 Comments:arthritis, fibromya lgia Status:Active Sister 4 Comments:healthy Status:Active Son 1 Comments: MVA in 's 16 yo. Status:Active Son 2 Comments:Shawn Dudley compute rs Status:Active Unknown Family Member Name Dates Details Daughter 1 Comments:anxiety, [employer] Status:Active Father Comments:colon cancer 65 yo, HTN, stroke 65yo, CAD start in late 50's then [place] 72 yo . 72 alcoholic, smoker Status:Active First Degree Relatives Comments:maternal aunt and m aternal uncle type I diabetes Status:Active Maternal Grandfather Comments:emphysema Status:Active Maternal Grandmother Comments:ALS Status:Active Mother Comments:hypothyroid, thromb ocytopenia, aortic stenosis, severe anemia she fell and broke hip and of ME 2019 Status:Active Paternal Grandfather Comments:heart disease ME de ceased age 62 Status:Active Paternal Grandmother Comments:heart disease decea sed Status:Active Sister 1 Comments:TYPE II diabetes, H [place], paranoid schizophrenic, arthritis, obese 400 pounds Status:Active Sister 2 Comments:HTN, depression Status:Active Sister 3 Comments:arthritis, fibromya lgia Status:Active Sister 4 Comments:healthy Status:Active Son 1 Comments: MVA in 's 16 yo. Status:Active Son 2 Comments:Shawn Dudley compute rs Status:Active Unknown Family Member Name Dates Details Daughter 1 Comments:anxiety, [employer] Status:Active Father Comments:colon cancer 65 yo, HTN, stroke 65yo, CAD start in late 50's then [place] 72 yo . 72 alcoholic, smoker Status:Active First Degree Relatives Comments:maternal aunt and m aternal uncle type I diabetes Status:Active Maternal Grandfather Comments:emphysema Status:Active Maternal Grandmother Comments:ALS Status:Active Mother Comments:hypothyroid, thromb ocytopenia, aortic stenosis, severe anemia she fell and broke hip and of ME 2019 Status:Active Paternal Grandfather Comments:heart disease ME de ceased age 62 Status:Active Paternal Grandmother Comments:heart disease decea sed Status:Active Sister 1 Comments:TYPE II diabetes, H [place], paranoid schizophrenic, arthritis, obese 400 pounds Status:Active Sister 2 Comments:HTN, depression Status:Active Sister 3 Comments:arthritis, fibromya lgia Status:Active Sister 4 Comments:healthy Status:Active Son 1 Comments: MVA in 's 16 yo. Status:Active Son 2 Comments:Luis Enrique [place] compute rs Status:Active Unknown Family Member Name Dates Details Daughter 1 Comments:anxiety, [employer] Status:Active Father Comments:colon cancer 65 yo, HTN, stroke 65yo, CAD start in late 50's then [place] 72 yo . 72 alcoholic, smoker Status:Active First Degree Relatives Comments:maternal aunt and m aternal uncle type I diabetes Status:Active Maternal Grandfather Comments:emphysema Status:Active Maternal Grandmother Comments:ALS Status:Active Mother Comments:hypothyroid, thromb ocytopenia, aortic stenosis, severe anemia she fell and broke hip and of ME 2019 Status:Active Paternal Grandfather Comments:heart disease ME de ceased age 62 Status:Active Paternal Grandmother Comments:heart disease decea sed Status:Active Sister 1 Comments:TYPE II diabetes, H [place], paranoid schizophrenic, arthritis, obese 400 pounds Status:Active Sister 2 Comments:HTN, depression Status:Active Sister 3 Comments:arthritis, fibromya lgia Status:Active Sister 4 Comments:healthy Status:Active Son 1 Comments: MVA in 's 16 yo. Status:Active Son 2 Comments:Luis Enrique [place] compute rs Status:Active Unknown Family Member Name Dates Details Daughter 1 Comments:anxiety, [employer] Status:Active Father Comments:colon cancer 65 yo, HTN, stroke 65yo, CAD start in late 50's then [place] 72 yo . 72 alcoholic, smoker Status:Active First Degree Relatives Comments:maternal aunt and m aternal uncle type I diabetes Status:Active Maternal Grandfather Comments:emphysema Status:Active Maternal Grandmother Comments:ALS Status:Active Mother Comments:hypothyroid, thromb ocytopenia, aortic stenosis, severe anemia she fell and broke hip and of ME 2019 Status:Active Paternal Grandfather Comments:heart disease ME de ceased age 62 Status:Active Paternal Grandmother Comments:heart disease decea sed Status:Active Sister 1 Comments:TYPE II diabetes, H [place], paranoid schizophrenic, arthritis, obese 400 pounds Status:Active Sister 2 Comments:HTN, depression Status:Active Sister 3 Comments:arthritis, fibromya lgia Status:Active Sister 4 Comments:healthy Status:Active Son 1 Comments: MVA in 's 16 yo. Status:Active Son 2 Comments:Shawn Dudley compute rs Status:Active Unknown Family Member Name Dates Details Daughter 1 Comments:anxiety, [employer] Status:Active Father Comments:colon cancer 65 yo, HTN, stroke 65yo, CAD start in late 50's then [place] 72 yo . 72 alcoholic, smoker Status:Active First Degree Relatives Comments:maternal aunt and m aternal uncle type I diabetes Status:Active Maternal Grandfather Comments:emphysema Status:Active Maternal Grandmother Comments:ALS Status:Active Mother Comments:hypothyroid, thromb ocytopenia, aortic stenosis, severe anemia she fell and broke hip and of ME 2019 Status:Active Paternal Grandfather Comments:heart disease ME de ceased age 62 Status:Active Paternal Grandmother Comments:heart disease decea sed Status:Active Sister 1 Comments:TYPE II diabetes, H [place], paranoid schizophrenic, arthritis, obese 400 pounds Status:Active Sister 2 Comments:HTN, depression Status:Active Sister 3 Comments:arthritis, fibromya lgia Status:Active Sister 4 Comments:healthy Status:Active Son 1 Comments: MVA in 's 16 yo. Status:Active Son 2 Comments:Luis Enrique [place] compute rs Status:Active Unknown Family Member Name Dates Details Daughter 1 Comments:anxiety, [employer] Status:Active Father Comments:colon cancer 65 yo, HTN, stroke 65yo, CAD start in late 50's then [place] 72 yo . 72 alcoholic, smoker Status:Active First Degree Relatives Comments:maternal aunt and m aternal uncle type I diabetes Status:Active Maternal Grandfather Comments:emphysema Status:Active Maternal Grandmother Comments:ALS Status:Active Mother Comments:hypothyroid, thromb ocytopenia, aortic stenosis, severe anemia she fell and broke hip and of ME 2019 Status:Active Paternal Grandfather Comments:heart disease ME de ceased age 62 Status:Active Paternal Grandmother Comments:heart disease decea sed Status:Active Sister 1 Comments:TYPE II diabetes, [place], paranoid schizophrenic, arthritis, obese 400 pounds Status:Active Sister 2 Comments:HTN, depression Status:Active Sister 3 Comments:arthritis, fibromya lgia Status:Active Sister 4 Comments:healthy Status:Active Son 1 Comments: MVA in 's 16 yo. Status:Active Son 2 Comments:Luis Enrique [place] [employer] Status:Active Unknown Family Member Name Dates Details Daughter 1 Comments:anxiety, [employer] Status:Active Father Comments:colon cancer 65 yo, HTN, stroke 65yo, CAD start in late 50's then [place] 72 yo . 72 alcoholic, smoker Status:Active First Degree Relatives Comments:maternal aunt and m aternal uncle type I diabetes Status:Active Maternal Grandfather Comments:emphysema Status:Active Maternal Grandmother Comments:ALS Status:Active Mother Comments:hypothyroid, thromb ocytopenia, aortic stenosis, severe anemia she fell and broke hip and of ME 2019 Status:Active Paternal Grandfather Comments:heart disease ME de ceased age 62 Status:Active Paternal Grandmother Comments:heart disease decea sed Status:Active Sister 1 Comments:TYPE II diabetes, H [place], paranoid schizophrenic, arthritis, obese 400 pounds Status:Active Sister 2 Comments:HTN, depression Status:Active Sister 3 Comments:arthritis, fibromya lgia Status:Active Sister 4 Comments:healthy Status:Active Son 1 Comments: MVA in 's 16 yo. Status:Active Son 2 Comments:Luis Enrique [place] compute rs Status:Active Unknown Family Member Name Dates Details Daughter 1 Comments:anxiety, [employer] Status:Active Father Comments:colon cancer 65 yo, HTN, stroke 65yo, CAD start in late 50's then [place] 72 yo . 72 alcoholic, smoker Status:Active First Degree Relatives Comments:maternal aunt and m aternal uncle type I diabetes Status:Active Maternal Grandfather Comments:emphysema Status:Active Maternal Grandmother Comments:ALS Status:Active Mother Comments:hypothyroid, thromb ocytopenia, aortic stenosis, severe anemia she fell and broke hip and of ME 2019 Status:Active Paternal Grandfather Comments:heart disease ME de ceased age 62 Status:Active Paternal Grandmother Comments:heart disease decea sed Status:Active Sister 1 Comments:TYPE II diabetes, H [place], paranoid schizophrenic, arthritis, obese 400 pounds Status:Active Sister 2 Comments:HTN, depression Status:Active Sister 3 Comments:arthritis, fibromya lgia Status:Active Sister 4 Comments:healthy Status:Active Son 1 Comments: MVA in 's 16 yo. Status:Active Son 2 Comments:Shawn Dudley compute rs Status:Active Unknown Family Member Name Dates Details Daughter 1 Comments:anxiety, [employer] Status:Active Father Comments:colon cancer 65 yo, HTN, stroke 65yo, CAD start in late 50's then [place] 72 yo . 72 alcoholic, smoker Status:Active First Degree Relatives Comments:maternal aunt and m aternal uncle type I diabetes Status:Active Maternal Grandfather Comments:emphysema Status:Active Maternal Grandmother Comments:ALS Status:Active Mother Comments:hypothyroid, thromb ocytopenia, aortic stenosis, severe anemia she fell and broke hip and of ME 2019 Status:Active Paternal Grandfather Comments:heart disease ME de ceased age 62 Status:Active Paternal Grandmother Comments:heart disease decea sed Status:Active Sister 1 Comments:TYPE II diabetes, H [place], paranoid schizophrenic, arthritis, obese 400 pounds Status:Active Sister 2 Comments:HTN, depression Status:Active Sister 3 Comments:arthritis, fibromya lgia Status:Active Sister 4 Comments:healthy Status:Active Son 1 Comments: MVA in 's 16 yo. Status:Active Son 2 Comments:Shawn Dudley compute rs Status:Active Unknown Family Member Name Dates Details Daughter 1 Comments:anxiety, [employer] Status:Active Father Comments:colon cancer 65 yo, HTN, stroke 65yo, CAD start in late 50's then [place] 72 yo . 72 alcoholic, smoker Status:Active First Degree Relatives Comments:maternal aunt and m aternal uncle type I diabetes Status:Active Maternal Grandfather Comments:emphysema Status:Active Maternal Grandmother Comments:ALS Status:Active Mother Comments:hypothyroid, thromb ocytopenia, aortic stenosis, severe anemia she fell and broke hip and of [place] 2019 Status:Active Paternal Grandfather Comments:heart disease [place] de ceased age 62 Status:Active Paternal Grandmother Comments:heart disease decea sed Status:Active Sister 1 Comments:TYPE II diabetes, H [place], paranoid schizophrenic, arthritis, obese 400 pounds Status:Active Sister 2 Comments:HTN, depression Status:Active Sister 3 Comments:arthritis, fibromya lgia Status:Active Sister 4 Comments:healthy Status:Active Son 1 Comments: MVA in 90's 16 yo. Status:Active Son 2 Comments:Shawn Dudley compute rs Status:Active Advance Directives Name Dates Details Immunization Registry [place] - Effective on 01/14/2018. Expiration date unspecified Effective:14-Jan-2018 Name Dates Details Immunization Registry [place] - Effective on 01/14/2018. Expiration date unspecified Effective:14-Jan-2018 Name Dates Details Immunization Registry [place] - Effective on 01/14/2018. Expiration date unspecified Effective:14-Jan-2018 Name Dates Details Immunization Registry [place] - Effective on 01/14/2018. Expiration date unspecified Effective:14-Jan-2018 Name Dates Details Immunization Registry [place] - Effective on 01/14/2018. Expiration date unspecified Effective:14-Jan-2018 Name Dates Details Immunization Registry [place] - Effective on 01/14/2018. Expiration date unspecified Effective:14-Jan-2018 Name Dates Details Immunization Registry [place] - Effective on 01/14/2018. Expiration date unspecified Effective:14-Jan-2018 Name Dates Details Immunization Registry [place] - Effective on 01/14/2018. Expiration date unspecified Effective:14-Jan-2018 Name Dates Details Immunization Registry [place] - Effective on 01/14/2018. Expiration date unspecified Effective:14-Jan-2018 Name Dates Details Immunization Registry [place] - Effective on 01/14/2018. Expiration date unspecified Effective:14-Jan-2018 Name Dates Details Immunization Registry [place] - Effective on 01/14/2018. Expiration date unspecified Effective:14-Jan-2018 Name Dates Details Immunization Registry [place] - Effective on 01/14/2018. Expiration date unspecified Effective:14-Jan-2018 Name Dates Details Immunization Registry [place] - Effective on 01/14/2018. Expiration date unspecified Effective:14-Jan-2018 Name Dates Details Immunization Registry [place] - Effective on 01/14/2018. Expiration date unspecified Effective:14-Jan-2018 Name Dates Details Immunization Registry [place] - Effective on 01/14/2018. Expiration date unspecified Effective:14-Jan-2018 Name Dates Details Immunization Registry [place] - Effective on 01/14/2018. Expiration date unspecified Effective:14-Jan-2018 Name Dates Details Immunization Registry [place] - Effective on 01/14/2018. Expiration date unspecified Effective:14-Jan-2018 Name Dates Details Immunization Registry [place] - Effective on 01/14/2018. Expiration date unspecified Effective:14-Jan-2018 Name Dates Details Immunization Registry [place] - Effective on 01/14/2018. Expiration date unspecified Effective:14-Jan-2018 Name Dates Details Immunization Registry [place] - Effective on 01/14/2018. Expiration date unspecified Effective:14-Jan-2018 Name Dates Details Immunization Registry [place] - Effective on 01/14/2018. Expiration date unspecified Effective:14-Jan-2018 Name Dates Details Immunization Registry [place] - Effective on 01/14/2018. Expiration date unspecified Effective:14-Jan-2018 Name Dates Details Immunization Registry [place] - Effective on 01/14/2018. Expiration date unspecified Effective:14-Jan-2018 Name Dates Details Immunization Registry [place] - Effective on 01/14/2018. Expiration date unspecified Effective:14-Jan-2018 Name Dates Details Immunization Registry [place] - Effective on 01/14/2018. Expiration date unspecified Effective:14-Jan-2018 Name Dates Details Immunization Registry [place] - Effective on 01/14/2018. Expiration date unspecified Effective:14-Jan-2018 Name Dates Details Immunization Registry [place] - Effective on 01/14/2018. Expiration date unspecified Effective:14-Jan-2018 Name Dates Details Immunization Registry [place] - Effective on 01/14/2018. Expiration date unspecified Effective:14-Jan-2018 Name Dates Details Immunization Registry [place] - Effective on 01/14/2018. Expiration date unspecified Effective:14-Jan-2018 Name Dates Details Immunization Registry [place] - Effective on 01/14/2018. Expiration date unspecified Effective:14-Jan-2018 Name Dates Details Immunization Registry [place] - Effective on 01/14/2018. Expiration date unspecified Effective:14-Jan-2018 Name Dates Details Immunization Registry [place] - Effective on 01/14/2018. Expiration date unspecified Effective:14-Jan-2018 Name Dates Details Immunization Registry [place] - Effective on 01/14/2018. Expiration date unspecified Effective:14-Jan-2018 Name Dates Details Immunization Registry [place] - Effective on 01/14/2018. Expiration date unspecified Effective:14-Jan-2018 Name Dates Details Immunization Registry [place] - Effective on 01/14/2018. Expiration date unspecified Effective:14-Jan-2018 Name Dates Details Immunization Registry [place] - Effective on 01/14/2018. Expiration date unspecified Effective:14-Jan-2018 Name Dates Details Immunization Registry [place] - Effective on 01/14/2018. Expiration date unspecified Effective:14-Jan-2018 Name Dates Details Immunization Registry [place] - Effective on 01/14/2018. Expiration date unspecified Effective:14-Jan-2018 Name Dates Details Immunization Registry [place] - Effective on 01/14/2018. Expiration date unspecified Effective:14-Jan-2018 Name Dates Details Immunization Registry [place] - Effective on 01/14/2018. Expiration date unspecified Effective:14-Jan-2018 Name Dates Details Immunization Registry [place] - Effective on 01/14/2018. Expiration date unspecified Effective:14-Jan-2018 Name Dates Details Immunization Registry [place] - Effective on 01/14/2018. Expiration date unspecified Effective:14-Jan-2018 Name Dates Details Immunization Registry [place] - Effective on 01/14/2018. Expiration date unspecified Effective:14-Jan-2018 Name Dates Details Immunization Registry [place] - Effective on 01/14/2018. Expiration date unspecified Effective:14-Jan-2018 Name Dates Details Immunization Registry [place] - Effective on 01/14/2018. Expiration date unspecified Effective:14-Jan-2018 Instructions Name Dates Details Screening for HPV (human pap illomavirus) (Renamed from Encounter for screening for human papillomavirus (HPV)) : How to access health information online Indication:Screening for HPV (human papillomavirus) (Renamed from Encounter for screening for human papillomavirus (HPV)) Screening for HPV (human pap illomavirus) (Renamed from Encounter for screening for human papillomavirus (HPV)) : How to access health information online - Detail Indication:Screening for HPV (human papillomavirus) (Renamed from Encounter for screening for human papillomavirus (HPV)) Screening for HPV (human pap illomavirus) (Renamed from Encounter for screening for human papillomavirus (HPV)) : Patient Instructions Indication:Screening for HPV (human papillomavirus) (Renamed from Encounter for screening for human papillomavirus (HPV)) Name Dates Details Overactive bladder : How to access health information online Indication:Overactive bladder Overactive bladder : How to access health information online - Detail Indication:Overactive bladder Overactive bladder : Patient Instructions Indication:Overactive bladder Screening for HPV (human pap illomavirus) (Renamed from Encounter for screening for human papillomavirus (HPV)) : How to access health information online Indication:Screening for HPV (human papillomavirus) (Renamed from Encounter for screening for human papillomavirus (HPV)) Screening for HPV (human pap illomavirus) (Renamed from Encounter for screening for human papillomavirus (HPV)) : How to access health information online - Detail Indication:Screening for HPV (human papillomavirus) (Renamed from Encounter for screening for human papillomavirus (HPV)) Screening for HPV (human pap illomavirus) (Renamed from Encounter for screening for human papillomavirus (HPV)) : Patient Instructions Indication:Screening for HPV (human papillomavirus) (Renamed from Encounter for screening for human papillomavirus (HPV)) Name Dates Details BMI 31.0-31.9,adult : How to access health information online Indication:BMI 31.0-31.9,adult BMI 31.0-31.9,adult : How to access health information online - Detail Indication:BMI 31.0-31.9,adult BMI 31.0-31.9,adult : Patien t Instructions Indication:BMI 31.0-31.9,adult Overactive bladder : How to access health information online Indication:Overactive bladder Overactive bladder : How to access health information online - Detail Indication:Overactive bladder Overactive bladder : Patient Instructions Indication:Overactive bladder Screening for HPV (human pap illomavirus) (Renamed from Encounter for screening for human papillomavirus (HPV)) : How to access health information online Indication:Screening for HPV (human papillomavirus) (Renamed from Encounter for screening for human papillomavirus (HPV)) Screening for HPV (human pap illomavirus) (Renamed from Encounter for screening for human papillomavirus (HPV)) : How to access health information online - Detail Indication:Screening for HPV (human papillomavirus) (Renamed from Encounter for screening for human papillomavirus (HPV)) Screening for HPV (human pap illomavirus) (Renamed from Encounter for screening for human papillomavirus (HPV)) : Patient Instructions Indication:Screening for HPV (human papillomavirus) (Renamed from Encounter for screening for human papillomavirus (HPV)) Name Dates Details How to access health informa tion online Indication:Overactive bladder Start:08-Sep-2018 Instruction Type:Patient Education How to access health informa tion online - Detail Indication:Overactive bladder Start:08-Sep-2018 Instruction Type:Patient Education Patient Instructions Indication:Overactive bladder Start:08-Sep-2018 Instruction Type:Provider Instructions for Treatment How to access health informa tion online Indication:BMI 31.0-31.9,adult Start:05-May-2018 Instruction Type:Patient Education How to access health informa tion online - Detail Indication:BMI 31.0-31.9,adult Start:05-May-2018 Instruction Type:Patient Education Patient Instructions Indication:BMI 31.0-31.9,adult Start:05-May-2018 Instruction Type:Provider Instructions for Treatment How to access health informa tion online Indication:Overactive bladder Start:17-Mar-2018 Instruction Type:Patient Education How to access health informa tion online - Detail Indication:Overactive bladder Start:17-Mar-2018 Instruction Type:Patient Education Patient Instructions Indication:Overactive bladder Start:17-Mar-2018 Instruction Type:Provider Instructions for Treatment How to access health informa tion online Indication:Screening for HPV (human papillomavirus) (Renamed from Encounter for screening for human papillomavirus (HPV)) Start:14-Jan-2018 Instruction Type:Patient Education How to access health informa tion online - Detail Indication:Screening for HPV (human papillomavirus) (Renamed from Encounter for screening for human papillomavirus (HPV)) Start:14-Jan-2018 Instruction Type:Patient Education Patient Instructions Indication:Screening for HPV (human papillomavirus) (Renamed from Encounter for screening for human papillomavirus (HPV)) Start:14-Jan-2018 Instruction Type:Provider Instructions for Treatment Name Dates Details How to access health informa tion online Indication:Overactive bladder Start:08-Sep-2018 Instruction Type:Patient Education How to access health informa tion online - Detail Indication:Overactive bladder Start:08-Sep-2018 Instruction Type:Patient Education Patient Instructions Indication:Overactive bladder Start:08-Sep-2018 Instruction Type:Provider Instructions for Treatment How to access health informa tion online Indication:BMI 31.0-31.9,adult Start:05-May-2018 Instruction Type:Patient Education How to access health informa tion online - Detail Indication:BMI 31.0-31.9,adult Start:05-May-2018 Instruction Type:Patient Education Patient Instructions Indication:BMI 31.0-31.9,adult Start:05-May-2018 Instruction Type:Provider Instructions for Treatment How to access health informa tion online Indication:Overactive bladder Start:17-Mar-2018 Instruction Type:Patient Education How to access health informa tion online - Detail Indication:Overactive bladder Start:17-Mar-2018 Instruction Type:Patient Education Patient Instructions Indication:Overactive bladder Start:17-Mar-2018 Instruction Type:Provider Instructions for Treatment How to access health informa tion online Indication:Screening for HPV (human papillomavirus) (Renamed from Encounter for screening for human papillomavirus (HPV)) Start:14-Jan-2018 Instruction Type:Patient Education How to access health informa tion online - Detail Indication:Screening for HPV (human papillomavirus) (Renamed from Encounter for screening for human papillomavirus (HPV)) Start:14-Jan-2018 Instruction Type:Patient Education Patient Instructions Indication:Screening for HPV (human papillomavirus) (Renamed from Encounter for screening for human papillomavirus (HPV)) Start:14-Jan-2018 Instruction Type:Provider Instructions for Treatment Name Dates Details How to access health informa tion online Indication:Post-nasal drainage Start:27-Nov-2018 Instruction Type:Patient Education How to access health informa tion online - Detail Indication:Post-nasal drainage Start:27-Nov-2018 Instruction Type:Patient Education Patient Instructions Indication:Post-nasal drainage Start:27-Nov-2018 Instruction Type:Provider Instructions for Treatment How to access health informa tion online Indication:Overactive bladder Start:08-Sep-2018 Instruction Type:Patient Education How to access health informa tion online - Detail Indication:Overactive bladder Start:08-Sep-2018 Instruction Type:Patient Education Patient Instructions Indication:Overactive bladder Start:08-Sep-2018 Instruction Type:Provider Instructions for Treatment How to access health informa tion online Indication:BMI 31.0-31.9,adult Start:05-May-2018 Instruction Type:Patient Education How to access health informa tion online - Detail Indication:BMI 31.0-31.9,adult Start:05-May-2018 Instruction Type:Patient Education Patient Instructions Indication:BMI 31.0-31.9,adult Start:05-May-2018 Instruction Type:Provider Instructions for Treatment How to access health informa tion online Indication:Overactive bladder Start:17-Mar-2018 Instruction Type:Patient Education How to access health informa tion online - Detail Indication:Overactive bladder Start:17-Mar-2018 Instruction Type:Patient Education Patient Instructions Indication:Overactive bladder Start:17-Mar-2018 Instruction Type:Provider Instructions for Treatment How to access health informa tion online Indication:Screening for HPV (human papillomavirus) (Renamed from Encounter for screening for human papillomavirus (HPV)) Start:14-Jan-2018 Instruction Type:Patient Education How to access health informa tion online - Detail Indication:Screening for HPV (human papillomavirus) (Renamed from Encounter for screening for human papillomavirus (HPV)) Start:14-Jan-2018 Instruction Type:Patient Education Patient Instructions Indication:Screening for HPV (human papillomavirus) (Renamed from Encounter for screening for human papillomavirus (HPV)) Start:14-Jan-2018 Instruction Type:Provider Instructions for Treatment Name Dates Details How to access health informa tion online Indication:Post-nasal drainage Start:27-Nov-2018 Instruction Type:Patient Education How to access health informa tion online - Detail Indication:Post-nasal drainage Start:27-Nov-2018 Instruction Type:Patient Education Patient Instructions Indication:Post-nasal drainage Start:27-Nov-2018 Instruction Type:Provider Instructions for Treatment How to access health informa tion online Indication:Overactive bladder Start:08-Sep-2018 Instruction Type:Patient Education How to access health informa tion online - Detail Indication:Overactive bladder Start:08-Sep-2018 Instruction Type:Patient Education Patient Instructions Indication:Overactive bladder Start:08-Sep-2018 Instruction Type:Provider Instructions for Treatment How to access health informa tion online Indication:BMI 31.0-31.9,adult Start:05-May-2018 Instruction Type:Patient Education How to access health informa tion online - Detail Indication:BMI 31.0-31.9,adult Start:05-May-2018 Instruction Type:Patient Education Patient Instructions Indication:BMI 31.0-31.9,adult Start:05-May-2018 Instruction Type:Provider Instructions for Treatment How to access health informa tion online Indication:Overactive bladder Start:17-Mar-2018 Instruction Type:Patient Education How to access health informa tion online - Detail Indication:Overactive bladder Start:17-Mar-2018 Instruction Type:Patient Education Patient Instructions Indication:Overactive bladder Start:17-Mar-2018 Instruction Type:Provider Instructions for Treatment How to access health informa tion online Indication:Screening for HPV (human papillomavirus) (Renamed from Encounter for screening for human papillomavirus (HPV)) Start:14-Jan-2018 Instruction Type:Patient Education How to access health informa tion online - Detail Indication:Screening for HPV (human papillomavirus) (Renamed from Encounter for screening for human papillomavirus (HPV)) Start:14-Jan-2018 Instruction Type:Patient Education Patient Instructions Indication:Screening for HPV (human papillomavirus) (Renamed from Encounter for screening for human papillomavirus (HPV)) Start:14-Jan-2018 Instruction Type:Provider Instructions for Treatment Name Dates Details How to access health informa tion online Indication:Encounter for annual general medical examination with abnormal findings in adult Start:11-Feb-2019 Instruction Type:Patient Education How to access health informa tion online - Detail Indication:Encounter for annual general medical examination with abnormal findings in adult Start:11-Feb-2019 Instruction Type:Patient Education Patient Instructions Indication:Encounter for annual general medical examination with abnormal findings in adult Start:11-Feb-2019 Instruction Type:Provider Instructions for Treatment How to access health informa tion online Indication:Post-nasal drainage Start:27-Nov-2018 Instruction Type:Patient Education How to access health informa tion online - Detail Indication:Post-nasal drainage Start:27-Nov-2018 Instruction Type:Patient Education Patient Instructions Indication:Post-nasal drainage Start:27-Nov-2018 Instruction Type:Provider Instructions for Treatment How to access health informa tion online Indication:Overactive bladder Start:08-Sep-2018 Instruction Type:Patient Education How to access health informa tion online - Detail Indication:Overactive bladder Start:08-Sep-2018 Instruction Type:Patient Education Patient Instructions Indication:Overactive bladder Start:08-Sep-2018 Instruction Type:Provider Instructions for Treatment How to access health informa tion online Indication:BMI 31.0-31.9,adult Start:05-May-2018 Instruction Type:Patient Education How to access health informa tion online - Detail Indication:BMI 31.0-31.9,adult Start:05-May-2018 Instruction Type:Patient Education Patient Instructions Indication:BMI 31.0-31.9,adult Start:05-May-2018 Instruction Type:Provider Instructions for Treatment How to access health informa tion online Indication:Overactive bladder Start:17-Mar-2018 Instruction Type:Patient Education How to access health informa tion online - Detail Indication:Overactive bladder Start:17-Mar-2018 Instruction Type:Patient Education Patient Instructions Indication:Overactive bladder Start:17-Mar-2018 Instruction Type:Provider Instructions for Treatment How to access health informa tion online Indication:Screening for HPV (human papillomavirus) (Renamed from Encounter for screening for human papillomavirus (HPV)) Start:14-Jan-2018 Instruction Type:Patient Education How to access health informa tion online - Detail Indication:Screening for HPV (human papillomavirus) (Renamed from Encounter for screening for human papillomavirus (HPV)) Start:14-Jan-2018 Instruction Type:Patient Education Patient Instructions Indication:Screening for HPV (human papillomavirus) (Renamed from Encounter for screening for human papillomavirus (HPV)) Start:14-Jan-2018 Instruction Type:Provider Instructions for Treatment Name Dates Details How to access health informa tion online Indication:Unspecified Diagnosis Start:30-Sep-2019 Instruction Type:Patient Education How to access health informa tion online - Detail Indication:Unspecified Diagnosis Start:30-Sep-2019 Instruction Type:Patient Education Patient Instructions Indication:Unspecified Diagnosis Start:30-Sep-2019 Instruction Type:Provider Instructions for Treatment How to access health informa tion online Indication:Encounter for annual general medical examination with abnormal findings in adult Start:11-Feb-2019 Instruction Type:Patient Education How to access health informa tion online - Detail Indication:Encounter for annual general medical examination with abnormal findings in adult Start:11-Feb-2019 Instruction Type:Patient Education Patient Instructions Indication:Encounter for annual general medical examination with abnormal findings in adult Start:11-Feb-2019 Instruction Type:Provider Instructions for Treatment How to access health informa tion online Indication:Post-nasal drainage Start:27-Nov-2018 Instruction Type:Patient Education How to access health informa tion online - Detail Indication:Post-nasal drainage Start:27-Nov-2018 Instruction Type:Patient Education Patient Instructions Indication:Post-nasal drainage Start:27-Nov-2018 Instruction Type:Provider Instructions for Treatment How to access health informa tion online Indication:Overactive bladder Start:08-Sep-2018 Instruction Type:Patient Education How to access health informa tion online - Detail Indication:Overactive bladder Start:08-Sep-2018 Instruction Type:Patient Education Patient Instructions Indication:Overactive bladder Start:08-Sep-2018 Instruction Type:Provider Instructions for Treatment How to access health informa tion online Indication:BMI 31.0-31.9,adult Start:05-May-2018 Instruction Type:Patient Education How to access health informa tion online - Detail Indication:BMI 31.0-31.9,adult Start:05-May-2018 Instruction Type:Patient Education Patient Instructions Indication:BMI 31.0-31.9,adult Start:05-May-2018 Instruction Type:Provider Instructions for Treatment How to access health informa tion online Indication:Overactive bladder Start:17-Mar-2018 Instruction Type:Patient Education How to access health informa tion online - Detail Indication:Overactive bladder Start:17-Mar-2018 Instruction Type:Patient Education Patient Instructions Indication:Overactive bladder Start:17-Mar-2018 Instruction Type:Provider Instructions for Treatment How to access health informa tion online Indication:Screening for HPV (human papillomavirus) (Renamed from Encounter for screening for human papillomavirus (HPV)) Start:14-Jan-2018 Instruction Type:Patient Education How to access health informa tion online - Detail Indication:Screening for HPV (human papillomavirus) (Renamed from Encounter for screening for human papillomavirus (HPV)) Start:14-Jan-2018 Instruction Type:Patient Education Patient Instructions Indication:Screening for HPV (human papillomavirus) (Renamed from Encounter for screening for human papillomavirus (HPV)) Start:14-Jan-2018 Instruction Type:Provider Instructions for Treatment Name Dates Details How to access health informa tion online Indication:Nonsmoker Start:30-Sep-2019 Instruction Type:Patient Education How to access health informa tion online - Detail Indication:Nonsmoker Start:30-Sep-2019 Instruction Type:Patient Education Patient Instructions Indication:Nonsmoker Start:30-Sep-2019 Instruction Type:Provider Instructions for Treatment How to access health informa tion online Indication:Encounter for annual general medical examination with abnormal findings in adult Start:11-Feb-2019 Instruction Type:Patient Education How to access health informa tion online - Detail Indication:Encounter for annual general medical examination with abnormal findings in adult Start:11-Feb-2019 Instruction Type:Patient Education Patient Instructions Indication:Encounter for annual general medical examination with abnormal findings in adult Start:11-Feb-2019 Instruction Type:Provider Instructions for Treatment How to access health informa tion online Indication:Post-nasal drainage Start:27-Nov-2018 Instruction Type:Patient Education How to access health informa tion online - Detail Indication:Post-nasal drainage Start:27-Nov-2018 Instruction Type:Patient Education Patient Instructions Indication:Post-nasal drainage Start:27-Nov-2018 Instruction Type:Provider Instructions for Treatment How to access health informa tion online Indication:Overactive bladder Start:08-Sep-2018 Instruction Type:Patient Education How to access health informa tion online - Detail Indication:Overactive bladder Start:08-Sep-2018 Instruction Type:Patient Education Patient Instructions Indication:Overactive bladder Start:08-Sep-2018 Instruction Type:Provider Instructions for Treatment How to access health informa tion online Indication:BMI 31.0-31.9,adult Start:05-May-2018 Instruction Type:Patient Education How to access health informa tion online - Detail Indication:BMI 31.0-31.9,adult Start:05-May-2018 Instruction Type:Patient Education Patient Instructions Indication:BMI 31.0-31.9,adult Start:05-May-2018 Instruction Type:Provider Instructions for Treatment How to access health informa tion online Indication:Overactive bladder Start:17-Mar-2018 Instruction Type:Patient Education How to access health informa tion online - Detail Indication:Overactive bladder Start:17-Mar-2018 Instruction Type:Patient Education Patient Instructions Indication:Overactive bladder Start:17-Mar-2018 Instruction Type:Provider Instructions for Treatment How to access health informa tion online Indication:Screening for HPV (human papillomavirus) (Renamed from Encounter for screening for human papillomavirus (HPV)) Start:14-Jan-2018 Instruction Type:Patient Education How to access health informa tion online - Detail Indication:Screening for HPV (human papillomavirus) (Renamed from Encounter for screening for human papillomavirus (HPV)) Start:14-Jan-2018 Instruction Type:Patient Education Patient Instructions Indication:Screening for HPV (human papillomavirus) (Renamed from Encounter for screening for human papillomavirus (HPV)) Start:14-Jan-2018 Instruction Type:Provider Instructions for Treatment Name Dates Details How to access health informa tion online Indication:Nonsmoker Start:30-Sep-2019 Instruction Type:Patient Education How to access health informa tion online - Detail Indication:Nonsmoker Start:30-Sep-2019 Instruction Type:Patient Education Patient Instructions Indication:Nonsmoker Start:30-Sep-2019 Instruction Type:Provider Instructions for Treatment How to access health informa tion online Indication:Encounter for annual general medical examination with abnormal findings in adult Start:11-Feb-2019 Instruction Type:Patient Education How to access health informa tion online - Detail Indication:Encounter for annual general medical examination with abnormal findings in adult Start:11-Feb-2019 Instruction Type:Patient Education Patient Instructions Indication:Encounter for annual general medical examination with abnormal findings in adult Start:11-Feb-2019 Instruction Type:Provider Instructions for Treatment How to access health informa tion online Indication:Post-nasal drainage Start:27-Nov-2018 Instruction Type:Patient Education How to access health informa tion online - Detail Indication:Post-nasal drainage Start:27-Nov-2018 Instruction Type:Patient Education Patient Instructions Indication:Post-nasal drainage Start:27-Nov-2018 Instruction Type:Provider Instructions for Treatment How to access health informa tion online Indication:Overactive bladder Start:08-Sep-2018 Instruction Type:Patient Education How to access health informa tion online - Detail Indication:Overactive bladder Start:08-Sep-2018 Instruction Type:Patient Education Patient Instructions Indication:Overactive bladder Start:08-Sep-2018 Instruction Type:Provider Instructions for Treatment How to access health informa tion online Indication:BMI 31.0-31.9,adult Start:05-May-2018 Instruction Type:Patient Education How to access health informa tion online - Detail Indication:BMI 31.0-31.9,adult Start:05-May-2018 Instruction Type:Patient Education Patient Instructions Indication:BMI 31.0-31.9,adult Start:05-May-2018 Instruction Type:Provider Instructions for Treatment How to access health informa tion online Indication:Overactive bladder Start:17-Mar-2018 Instruction Type:Patient Education How to access health informa tion online - Detail Indication:Overactive bladder Start:17-Mar-2018 Instruction Type:Patient Education Patient Instructions Indication:Overactive bladder Start:17-Mar-2018 Instruction Type:Provider Instructions for Treatment How to access health informa tion online Indication:Screening for HPV (human papillomavirus) (Renamed from Encounter for screening for human papillomavirus (HPV)) Start:14-Jan-2018 Instruction Type:Patient Education How to access health informa tion online - Detail Indication:Screening for HPV (human papillomavirus) (Renamed from Encounter for screening for human papillomavirus (HPV)) Start:14-Jan-2018 Instruction Type:Patient Education Patient Instructions Indication:Screening for HPV (human papillomavirus) (Renamed from Encounter for screening for human papillomavirus (HPV)) Start:14-Jan-2018 Instruction Type:Provider Instructions for Treatment Name Dates Details How to access health informa tion online Indication:Nonsmoker Start:30-Sep-2019 Instruction Type:Patient Education How to access health informa tion online - Detail Indication:Nonsmoker Start:30-Sep-2019 Instruction Type:Patient Education Patient Instructions Indication:Nonsmoker Start:30-Sep-2019 Instruction Type:Provider Instructions for Treatment How to access health informa tion online Indication:Encounter for annual general medical examination with abnormal findings in adult Start:11-Feb-2019 Instruction Type:Patient Education How to access health informa tion online - Detail Indication:Encounter for annual general medical examination with abnormal findings in adult Start:11-Feb-2019 Instruction Type:Patient Education Patient Instructions Indication:Encounter for annual general medical examination with abnormal findings in adult Start:11-Feb-2019 Instruction Type:Provider Instructions for Treatment How to access health informa tion online Indication:Post-nasal drainage Start:27-Nov-2018 Instruction Type:Patient Education How to access health informa tion online - Detail Indication:Post-nasal drainage Start:27-Nov-2018 Instruction Type:Patient Education Patient Instructions Indication:Post-nasal drainage Start:27-Nov-2018 Instruction Type:Provider Instructions for Treatment How to access health informa tion online Indication:Overactive bladder Start:08-Sep-2018 Instruction Type:Patient Education How to access health informa tion online - Detail Indication:Overactive bladder Start:08-Sep-2018 Instruction Type:Patient Education Patient Instructions Indication:Overactive bladder Start:08-Sep-2018 Instruction Type:Provider Instructions for Treatment How to access health informa tion online Indication:BMI 31.0-31.9,adult Start:05-May-2018 Instruction Type:Patient Education How to access health informa tion online - Detail Indication:BMI 31.0-31.9,adult Start:05-May-2018 Instruction Type:Patient Education Patient Instructions Indication:BMI 31.0-31.9,adult Start:05-May-2018 Instruction Type:Provider Instructions for Treatment How to access health informa tion online Indication:Overactive bladder Start:17-Mar-2018 Instruction Type:Patient Education How to access health informa tion online - Detail Indication:Overactive bladder Start:17-Mar-2018 Instruction Type:Patient Education Patient Instructions Indication:Overactive bladder Start:17-Mar-2018 Instruction Type:Provider Instructions for Treatment How to access health informa tion online Indication:Screening for HPV (human papillomavirus) (Renamed from Encounter for screening for human papillomavirus (HPV)) Start:14-Jan-2018 Instruction Type:Patient Education How to access health informa tion online - Detail Indication:Screening for HPV (human papillomavirus) (Renamed from Encounter for screening for human papillomavirus (HPV)) Start:14-Jan-2018 Instruction Type:Patient Education Patient Instructions Indication:Screening for HPV (human papillomavirus) (Renamed from Encounter for screening for human papillomavirus (HPV)) Start:14-Jan-2018 Instruction Type:Provider Instructions for Treatment Name Dates Details How to access health informa tion online Indication:Nonsmoker Start:30-Sep-2019 Instruction Type:Patient Education How to access health informa tion online - Detail Indication:Nonsmoker Start:30-Sep-2019 Instruction Type:Patient Education Patient Instructions Indication:Nonsmoker Start:30-Sep-2019 Instruction Type:Provider Instructions for Treatment How to access health informa tion online Indication:Encounter for annual general medical examination with abnormal findings in adult Start:11-Feb-2019 Instruction Type:Patient Education How to access health informa tion online - Detail Indication:Encounter for annual general medical examination with abnormal findings in adult Start:11-Feb-2019 Instruction Type:Patient Education Patient Instructions Indication:Encounter for annual general medical examination with abnormal findings in adult Start:11-Feb-2019 Instruction Type:Provider Instructions for Treatment How to access health informa tion online Indication:Post-nasal drainage Start:27-Nov-2018 Instruction Type:Patient Education How to access health informa tion online - Detail Indication:Post-nasal drainage Start:27-Nov-2018 Instruction Type:Patient Education Patient Instructions Indication:Post-nasal drainage Start:27-Nov-2018 Instruction Type:Provider Instructions for Treatment How to access health informa tion online Indication:Overactive bladder Start:08-Sep-2018 Instruction Type:Patient Education How to access health informa tion online - Detail Indication:Overactive bladder Start:08-Sep-2018 Instruction Type:Patient Education Patient Instructions Indication:Overactive bladder Start:08-Sep-2018 Instruction Type:Provider Instructions for Treatment How to access health informa tion online Indication:BMI 31.0-31.9,adult Start:05-May-2018 Instruction Type:Patient Education How to access health informa tion online - Detail Indication:BMI 31.0-31.9,adult Start:05-May-2018 Instruction Type:Patient Education Patient Instructions Indication:BMI 31.0-31.9,adult Start:05-May-2018 Instruction Type:Provider Instructions for Treatment How to access health informa tion online Indication:Overactive bladder Start:17-Mar-2018 Instruction Type:Patient Education How to access health informa tion online - Detail Indication:Overactive bladder Start:17-Mar-2018 Instruction Type:Patient Education Patient Instructions Indication:Overactive bladder Start:17-Mar-2018 Instruction Type:Provider Instructions for Treatment How to access health informa tion online Indication:Screening for HPV (human papillomavirus) (Renamed from Encounter for screening for human papillomavirus (HPV)) Start:14-Jan-2018 Instruction Type:Patient Education How to access health informa tion online - Detail Indication:Screening for HPV (human papillomavirus) (Renamed from Encounter for screening for human papillomavirus (HPV)) Start:14-Jan-2018 Instruction Type:Patient Education Patient Instructions Indication:Screening for HPV (human papillomavirus) (Renamed from Encounter for screening for human papillomavirus (HPV)) Start:14-Jan-2018 Instruction Type:Provider Instructions for Treatment Name Dates Details How to access health informa tion online Indication:Nonsmoker Start:30-Sep-2019 Instruction Type:Patient Education How to access health informa tion online - Detail Indication:Nonsmoker Start:30-Sep-2019 Instruction Type:Patient Education Patient Instructions Indication:Nonsmoker Start:30-Sep-2019 Instruction Type:Provider Instructions for Treatment How to access health informa tion online Indication:Encounter for annual general medical examination with abnormal findings in adult Start:11-Feb-2019 Instruction Type:Patient Education How to access health informa tion online - Detail Indication:Encounter for annual general medical examination with abnormal findings in adult Start:11-Feb-2019 Instruction Type:Patient Education Patient Instructions Indication:Encounter for annual general medical examination with abnormal findings in adult Start:11-Feb-2019 Instruction Type:Provider Instructions for Treatment How to access health informa tion online Indication:Post-nasal drainage Start:27-Nov-2018 Instruction Type:Patient Education How to access health informa tion online - Detail Indication:Post-nasal drainage Start:27-Nov-2018 Instruction Type:Patient Education Patient Instructions Indication:Post-nasal drainage Start:27-Nov-2018 Instruction Type:Provider Instructions for Treatment How to access health informa tion online Indication:Overactive bladder Start:08-Sep-2018 Instruction Type:Patient Education How to access health informa tion online - Detail Indication:Overactive bladder Start:08-Sep-2018 Instruction Type:Patient Education Patient Instructions Indication:Overactive bladder Start:08-Sep-2018 Instruction Type:Provider Instructions for Treatment How to access health informa tion online Indication:BMI 31.0-31.9,adult Start:05-May-2018 Instruction Type:Patient Education How to access health informa tion online - Detail Indication:BMI 31.0-31.9,adult Start:05-May-2018 Instruction Type:Patient Education Patient Instructions Indication:BMI 31.0-31.9,adult Start:05-May-2018 Instruction Type:Provider Instructions for Treatment How to access health informa tion online Indication:Overactive bladder Start:17-Mar-2018 Instruction Type:Patient Education How to access health informa tion online - Detail Indication:Overactive bladder Start:17-Mar-2018 Instruction Type:Patient Education Patient Instructions Indication:Overactive bladder Start:17-Mar-2018 Instruction Type:Provider Instructions for Treatment How to access health informa tion online Indication:Screening for HPV (human papillomavirus) (Renamed from Encounter for screening for human papillomavirus (HPV)) Start:14-Jan-2018 Instruction Type:Patient Education How to access health informa tion online - Detail Indication:Screening for HPV (human papillomavirus) (Renamed from Encounter for screening for human papillomavirus (HPV)) Start:14-Jan-2018 Instruction Type:Patient Education Patient Instructions Indication:Screening for HPV (human papillomavirus) (Renamed from Encounter for screening for human papillomavirus (HPV)) Start:14-Jan-2018 Instruction Type:Provider Instructions for Treatment Name Dates Details How to access health informa tion online Indication:Nonsmoker Start:30-Sep-2019 Instruction Type:Patient Education How to access health informa tion online - Detail Indication:Nonsmoker Start:30-Sep-2019 Instruction Type:Patient Education Patient Instructions Indication:Nonsmoker Start:30-Sep-2019 Instruction Type:Provider Instructions for Treatment How to access health informa tion online Indication:Encounter for annual general medical examination with abnormal findings in adult Start:11-Feb-2019 Instruction Type:Patient Education How to access health informa tion online - Detail Indication:Encounter for annual general medical examination with abnormal findings in adult Start:11-Feb-2019 Instruction Type:Patient Education Patient Instructions Indication:Encounter for annual general medical examination with abnormal findings in adult Start:11-Feb-2019 Instruction Type:Provider Instructions for Treatment How to access health informa tion online Indication:Post-nasal drainage Start:27-Nov-2018 Instruction Type:Patient Education How to access health informa tion online - Detail Indication:Post-nasal drainage Start:27-Nov-2018 Instruction Type:Patient Education Patient Instructions Indication:Post-nasal drainage Start:27-Nov-2018 Instruction Type:Provider Instructions for Treatment How to access health informa tion online Indication:Overactive bladder Start:08-Sep-2018 Instruction Type:Patient Education How to access health informa tion online - Detail Indication:Overactive bladder Start:08-Sep-2018 Instruction Type:Patient Education Patient Instructions Indication:Overactive bladder Start:08-Sep-2018 Instruction Type:Provider Instructions for Treatment How to access health informa tion online Indication:BMI 31.0-31.9,adult Start:05-May-2018 Instruction Type:Patient Education How to access health informa tion online - Detail Indication:BMI 31.0-31.9,adult Start:05-May-2018 Instruction Type:Patient Education Patient Instructions Indication:BMI 31.0-31.9,adult Start:05-May-2018 Instruction Type:Provider Instructions for Treatment How to access health informa tion online Indication:Overactive bladder Start:17-Mar-2018 Instruction Type:Patient Education How to access health informa tion online - Detail Indication:Overactive bladder Start:17-Mar-2018 Instruction Type:Patient Education Patient Instructions Indication:Overactive bladder Start:17-Mar-2018 Instruction Type:Provider Instructions for Treatment How to access health informa tion online Indication:Screening for HPV (human papillomavirus) (Renamed from Encounter for screening for human papillomavirus (HPV)) Start:14-Jan-2018 Instruction Type:Patient Education How to access health informa tion online - Detail Indication:Screening for HPV (human papillomavirus) (Renamed from Encounter for screening for human papillomavirus (HPV)) Start:14-Jan-2018 Instruction Type:Patient Education Patient Instructions Indication:Screening for HPV (human papillomavirus) (Renamed from Encounter for screening for human papillomavirus (HPV)) Start:14-Jan-2018 Instruction Type:Provider Instructions for Treatment Name Dates Details How to access health informa tion online Indication:Hypertension, benign Start:21-Dec-2019 Instruction Type:Patient Education How to access health informa tion online - Detail Indication:Hypertension, benign Start:21-Dec-2019 Instruction Type:Patient Education Patient Instructions Indication:Hypertension, benign Start:21-Dec-2019 Instruction Type:Provider Instructions for Treatment How to access health informa tion online Indication:Nonsmoker Start:30-Sep-2019 Instruction Type:Patient Education How to access health informa tion online - Detail Indication:Nonsmoker Start:30-Sep-2019 Instruction Type:Patient Education Patient Instructions Indication:Nonsmoker Start:30-Sep-2019 Instruction Type:Provider Instructions for Treatment How to access health informa tion online Indication:Encounter for annual general medical examination with abnormal findings in adult Start:11-Feb-2019 Instruction Type:Patient Education How to access health informa tion online - Detail Indication:Encounter for annual general medical examination with abnormal findings in adult Start:11-Feb-2019 Instruction Type:Patient Education Patient Instructions Indication:Encounter for annual general medical examination with abnormal findings in adult Start:11-Feb-2019 Instruction Type:Provider Instructions for Treatment How to access health informa tion online Indication:Post-nasal drainage Start:27-Nov-2018 Instruction Type:Patient Education How to access health informa tion online - Detail Indication:Post-nasal drainage Start:27-Nov-2018 Instruction Type:Patient Education Patient Instructions Indication:Post-nasal drainage Start:27-Nov-2018 Instruction Type:Provider Instructions for Treatment How to access health informa tion online Indication:Overactive bladder Start:08-Sep-2018 Instruction Type:Patient Education How to access health informa tion online - Detail Indication:Overactive bladder Start:08-Sep-2018 Instruction Type:Patient Education Patient Instructions Indication:Overactive bladder Start:08-Sep-2018 Instruction Type:Provider Instructions for Treatment How to access health informa tion online Indication:BMI 31.0-31.9,adult Start:05-May-2018 Instruction Type:Patient Education How to access health informa tion online - Detail Indication:BMI 31.0-31.9,adult Start:05-May-2018 Instruction Type:Patient Education Patient Instructions Indication:BMI 31.0-31.9,adult Start:05-May-2018 Instruction Type:Provider Instructions for Treatment How to access health informa tion online Indication:Overactive bladder Start:17-Mar-2018 Instruction Type:Patient Education How to access health informa tion online - Detail Indication:Overactive bladder Start:17-Mar-2018 Instruction Type:Patient Education Patient Instructions Indication:Overactive bladder Start:17-Mar-2018 Instruction Type:Provider Instructions for Treatment How to access health informa tion online Indication:Screening for HPV (human papillomavirus) (Renamed from Encounter for screening for human papillomavirus (HPV)) Start:14-Jan-2018 Instruction Type:Patient Education How to access health informa tion online - Detail Indication:Screening for HPV (human papillomavirus) (Renamed from Encounter for screening for human papillomavirus (HPV)) Start:14-Jan-2018 Instruction Type:Patient Education Patient Instructions Indication:Screening for HPV (human papillomavirus) (Renamed from Encounter for screening for human papillomavirus (HPV)) Start:14-Jan-2018 Instruction Type:Provider Instructions for Treatment Name Dates Details How to access health informa tion online Indication:Hypertension, benign Start:21-Dec-2019 Instruction Type:Patient Education How to access health informa tion online - Detail Indication:Hypertension, benign Start:21-Dec-2019 Instruction Type:Patient Education Patient Instructions Indication:Hypertension, benign Start:21-Dec-2019 Instruction Type:Provider Instructions for Treatment How to access health informa tion online Indication:Nonsmoker Start:30-Sep-2019 Instruction Type:Patient Education How to access health informa tion online - Detail Indication:Nonsmoker Start:30-Sep-2019 Instruction Type:Patient Education Patient Instructions Indication:Nonsmoker Start:30-Sep-2019 Instruction Type:Provider Instructions for Treatment How to access health informa tion online Indication:Encounter for annual general medical examination with abnormal findings in adult Start:11-Feb-2019 Instruction Type:Patient Education How to access health informa tion online - Detail Indication:Encounter for annual general medical examination with abnormal findings in adult Start:11-Feb-2019 Instruction Type:Patient Education Patient Instructions Indication:Encounter for annual general medical examination with abnormal findings in adult Start:11-Feb-2019 Instruction Type:Provider Instructions for Treatment How to access health informa tion online Indication:Post-nasal drainage Start:27-Nov-2018 Instruction Type:Patient Education How to access health informa tion online - Detail Indication:Post-nasal drainage Start:27-Nov-2018 Instruction Type:Patient Education Patient Instructions Indication:Post-nasal drainage Start:27-Nov-2018 Instruction Type:Provider Instructions for Treatment How to access health informa tion online Indication:Overactive bladder Start:08-Sep-2018 Instruction Type:Patient Education How to access health informa tion online - Detail Indication:Overactive bladder Start:08-Sep-2018 Instruction Type:Patient Education Patient Instructions Indication:Overactive bladder Start:08-Sep-2018 Instruction Type:Provider Instructions for Treatment How to access health informa tion online Indication:BMI 31.0-31.9,adult Start:05-May-2018 Instruction Type:Patient Education How to access health informa tion online - Detail Indication:BMI 31.0-31.9,adult Start:05-May-2018 Instruction Type:Patient Education Patient Instructions Indication:BMI 31.0-31.9,adult Start:05-May-2018 Instruction Type:Provider Instructions for Treatment How to access health informa tion online Indication:Overactive bladder Start:17-Mar-2018 Instruction Type:Patient Education How to access health informa tion online - Detail Indication:Overactive bladder Start:17-Mar-2018 Instruction Type:Patient Education Patient Instructions Indication:Overactive bladder Start:17-Mar-2018 Instruction Type:Provider Instructions for Treatment How to access health informa tion online Indication:Screening for HPV (human papillomavirus) (Renamed from Encounter for screening for human papillomavirus (HPV)) Start:14-Jan-2018 Instruction Type:Patient Education How to access health informa tion online - Detail Indication:Screening for HPV (human papillomavirus) (Renamed from Encounter for screening for human papillomavirus (HPV)) Start:14-Jan-2018 Instruction Type:Patient Education Patient Instructions Indication:Screening for HPV (human papillomavirus) (Renamed from Encounter for screening for human papillomavirus (HPV)) Start:14-Jan-2018 Instruction Type:Provider Instructions for Treatment Name Dates Details How to access health informa tion online Indication:Hypertension, benign Start:21-Dec-2019 Instruction Type:Patient Education How to access health informa tion online - Detail Indication:Hypertension, benign Start:21-Dec-2019 Instruction Type:Patient Education Patient Instructions Indication:Hypertension, benign Start:21-Dec-2019 Instruction Type:Provider Instructions for Treatment How to access health informa tion online Indication:Nonsmoker Start:30-Sep-2019 Instruction Type:Patient Education How to access health informa tion online - Detail Indication:Nonsmoker Start:30-Sep-2019 Instruction Type:Patient Education Patient Instructions Indication:Nonsmoker Start:30-Sep-2019 Instruction Type:Provider Instructions for Treatment How to access health informa tion online Indication:Encounter for annual general medical examination with abnormal findings in adult Start:11-Feb-2019 Instruction Type:Patient Education How to access health informa tion online - Detail Indication:Encounter for annual general medical examination with abnormal findings in adult Start:11-Feb-2019 Instruction Type:Patient Education Patient Instructions Indication:Encounter for annual general medical examination with abnormal findings in adult Start:11-Feb-2019 Instruction Type:Provider Instructions for Treatment How to access health informa tion online Indication:Post-nasal drainage Start:27-Nov-2018 Instruction Type:Patient Education How to access health informa tion online - Detail Indication:Post-nasal drainage Start:27-Nov-2018 Instruction Type:Patient Education Patient Instructions Indication:Post-nasal drainage Start:27-Nov-2018 Instruction Type:Provider Instructions for Treatment How to access health informa tion online Indication:Overactive bladder Start:08-Sep-2018 Instruction Type:Patient Education How to access health informa tion online - Detail Indication:Overactive bladder Start:08-Sep-2018 Instruction Type:Patient Education Patient Instructions Indication:Overactive bladder Start:08-Sep-2018 Instruction Type:Provider Instructions for Treatment How to access health informa tion online Indication:BMI 31.0-31.9,adult Start:05-May-2018 Instruction Type:Patient Education How to access health informa tion online - Detail Indication:BMI 31.0-31.9,adult Start:05-May-2018 Instruction Type:Patient Education Patient Instructions Indication:BMI 31.0-31.9,adult Start:05-May-2018 Instruction Type:Provider Instructions for Treatment How to access health informa tion online Indication:Overactive bladder Start:17-Mar-2018 Instruction Type:Patient Education How to access health informa tion online - Detail Indication:Overactive bladder Start:17-Mar-2018 Instruction Type:Patient Education Patient Instructions Indication:Overactive bladder Start:17-Mar-2018 Instruction Type:Provider Instructions for Treatment How to access health informa tion online Indication:Screening for HPV (human papillomavirus) (Renamed from Encounter for screening for human papillomavirus (HPV)) Start:14-Jan-2018 Instruction Type:Patient Education How to access health informa tion online - Detail Indication:Screening for HPV (human papillomavirus) (Renamed from Encounter for screening for human papillomavirus (HPV)) Start:14-Jan-2018 Instruction Type:Patient Education Patient Instructions Indication:Screening for HPV (human papillomavirus) (Renamed from Encounter for screening for human papillomavirus (HPV)) Start:14-Jan-2018 Instruction Type:Provider Instructions for Treatment Name Dates Details How to access health informa tion online Indication:Hypertension, benign Start:21-Dec-2019 Instruction Type:Patient Education How to access health informa tion online - Detail Indication:Hypertension, benign Start:21-Dec-2019 Instruction Type:Patient Education Patient Instructions Indication:Hypertension, benign Start:21-Dec-2019 Instruction Type:Provider Instructions for Treatment How to access health informa tion online Indication:Nonsmoker Start:30-Sep-2019 Instruction Type:Patient Education How to access health informa tion online - Detail Indication:Nonsmoker Start:30-Sep-2019 Instruction Type:Patient Education Patient Instructions Indication:Nonsmoker Start:30-Sep-2019 Instruction Type:Provider Instructions for Treatment How to access health informa tion online Indication:Encounter for annual general medical examination with abnormal findings in adult Start:11-Feb-2019 Instruction Type:Patient Education How to access health informa tion online - Detail Indication:Encounter for annual general medical examination with abnormal findings in adult Start:11-Feb-2019 Instruction Type:Patient Education Patient Instructions Indication:Encounter for annual general medical examination with abnormal findings in adult Start:11-Feb-2019 Instruction Type:Provider Instructions for Treatment How to access health informa tion online Indication:Post-nasal drainage Start:27-Nov-2018 Instruction Type:Patient Education How to access health informa tion online - Detail Indication:Post-nasal drainage Start:27-Nov-2018 Instruction Type:Patient Education Patient Instructions Indication:Post-nasal drainage Start:27-Nov-2018 Instruction Type:Provider Instructions for Treatment How to access health informa tion online Indication:Overactive bladder Start:08-Sep-2018 Instruction Type:Patient Education How to access health informa tion online - Detail Indication:Overactive bladder Start:08-Sep-2018 Instruction Type:Patient Education Patient Instructions Indication:Overactive bladder Start:08-Sep-2018 Instruction Type:Provider Instructions for Treatment How to access health informa tion online Indication:BMI 31.0-31.9,adult Start:05-May-2018 Instruction Type:Patient Education How to access health informa tion online - Detail Indication:BMI 31.0-31.9,adult Start:05-May-2018 Instruction Type:Patient Education Patient Instructions Indication:BMI 31.0-31.9,adult Start:05-May-2018 Instruction Type:Provider Instructions for Treatment How to access health informa tion online Indication:Overactive bladder Start:17-Mar-2018 Instruction Type:Patient Education How to access health informa tion online - Detail Indication:Overactive bladder Start:17-Mar-2018 Instruction Type:Patient Education Patient Instructions Indication:Overactive bladder Start:17-Mar-2018 Instruction Type:Provider Instructions for Treatment How to access health informa tion online Indication:Screening for HPV (human papillomavirus) (Renamed from Encounter for screening for human papillomavirus (HPV)) Start:14-Jan-2018 Instruction Type:Patient Education How to access health informa tion online - Detail Indication:Screening for HPV (human papillomavirus) (Renamed from Encounter for screening for human papillomavirus (HPV)) Start:14-Jan-2018 Instruction Type:Patient Education Patient Instructions Indication:Screening for HPV (human papillomavirus) (Renamed from Encounter for screening for human papillomavirus (HPV)) Start:14-Jan-2018 Instruction Type:Provider Instructions for Treatment Name Dates Details How to access health informa tion online Indication:Hypertension, benign Start:21-Dec-2019 Instruction Type:Patient Education How to access health informa tion online - Detail Indication:Hypertension, benign Start:21-Dec-2019 Instruction Type:Patient Education Patient Instructions Indication:Hypertension, benign Start:21-Dec-2019 Instruction Type:Provider Instructions for Treatment How to access health informa tion online Indication:Nonsmoker Start:30-Sep-2019 Instruction Type:Patient Education How to access health informa tion online - Detail Indication:Nonsmoker Start:30-Sep-2019 Instruction Type:Patient Education Patient Instructions Indication:Nonsmoker Start:30-Sep-2019 Instruction Type:Provider Instructions for Treatment How to access health informa tion online Indication:Encounter for annual general medical examination with abnormal findings in adult Start:11-Feb-2019 Instruction Type:Patient Education How to access health informa tion online - Detail Indication:Encounter for annual general medical examination with abnormal findings in adult Start:11-Feb-2019 Instruction Type:Patient Education Patient Instructions Indication:Encounter for annual general medical examination with abnormal findings in adult Start:11-Feb-2019 Instruction Type:Provider Instructions for Treatment How to access health informa tion online Indication:Post-nasal drainage Start:27-Nov-2018 Instruction Type:Patient Education How to access health informa tion online - Detail Indication:Post-nasal drainage Start:27-Nov-2018 Instruction Type:Patient Education Patient Instructions Indication:Post-nasal drainage Start:27-Nov-2018 Instruction Type:Provider Instructions for Treatment How to access health informa tion online Indication:Overactive bladder Start:08-Sep-2018 Instruction Type:Patient Education How to access health informa tion online - Detail Indication:Overactive bladder Start:08-Sep-2018 Instruction Type:Patient Education Patient Instructions Indication:Overactive bladder Start:08-Sep-2018 Instruction Type:Provider Instructions for Treatment How to access health informa tion online Indication:BMI 31.0-31.9,adult Start:05-May-2018 Instruction Type:Patient Education How to access health informa tion online - Detail Indication:BMI 31.0-31.9,adult Start:05-May-2018 Instruction Type:Patient Education Patient Instructions Indication:BMI 31.0-31.9,adult Start:05-May-2018 Instruction Type:Provider Instructions for Treatment How to access health informa tion online Indication:Overactive bladder Start:17-Mar-2018 Instruction Type:Patient Education How to access health informa tion online - Detail Indication:Overactive bladder Start:17-Mar-2018 Instruction Type:Patient Education Patient Instructions Indication:Overactive bladder Start:17-Mar-2018 Instruction Type:Provider Instructions for Treatment How to access health informa tion online Indication:Screening for HPV (human papillomavirus) (Renamed from Encounter for screening for human papillomavirus (HPV)) Start:14-Jan-2018 Instruction Type:Patient Education How to access health informa tion online - Detail Indication:Screening for HPV (human papillomavirus) (Renamed from Encounter for screening for human papillomavirus (HPV)) Start:14-Jan-2018 Instruction Type:Patient Education Patient Instructions Indication:Screening for HPV (human papillomavirus) (Renamed from Encounter for screening for human papillomavirus (HPV)) Start:14-Jan-2018 Instruction Type:Provider Instructions for Treatment Name Dates Details How to access health informa tion online Indication:Hypertension, benign Start:21-Dec-2019 Instruction Type:Patient Education How to access health informa tion online - Detail Indication:Hypertension, benign Start:21-Dec-2019 Instruction Type:Patient Education Patient Instructions Indication:Hypertension, benign Start:21-Dec-2019 Instruction Type:Provider Instructions for Treatment How to access health informa tion online Indication:Nonsmoker Start:30-Sep-2019 Instruction Type:Patient Education How to access health informa tion online - Detail Indication:Nonsmoker Start:30-Sep-2019 Instruction Type:Patient Education Patient Instructions Indication:Nonsmoker Start:30-Sep-2019 Instruction Type:Provider Instructions for Treatment How to access health informa tion online Indication:Encounter for annual general medical examination with abnormal findings in adult Start:11-Feb-2019 Instruction Type:Patient Education How to access health informa tion online - Detail Indication:Encounter for annual general medical examination with abnormal findings in adult Start:11-Feb-2019 Instruction Type:Patient Education Patient Instructions Indication:Encounter for annual general medical examination with abnormal findings in adult Start:11-Feb-2019 Instruction Type:Provider Instructions for Treatment How to access health informa tion online Indication:Post-nasal drainage Start:27-Nov-2018 Instruction Type:Patient Education How to access health informa tion online - Detail Indication:Post-nasal drainage Start:27-Nov-2018 Instruction Type:Patient Education Patient Instructions Indication:Post-nasal drainage Start:27-Nov-2018 Instruction Type:Provider Instructions for Treatment How to access health informa tion online Indication:Overactive bladder Start:08-Sep-2018 Instruction Type:Patient Education How to access health informa tion online - Detail Indication:Overactive bladder Start:08-Sep-2018 Instruction Type:Patient Education Patient Instructions Indication:Overactive bladder Start:08-Sep-2018 Instruction Type:Provider Instructions for Treatment How to access health informa tion online Indication:BMI 31.0-31.9,adult Start:05-May-2018 Instruction Type:Patient Education How to access health informa tion online - Detail Indication:BMI 31.0-31.9,adult Start:05-May-2018 Instruction Type:Patient Education Patient Instructions Indication:BMI 31.0-31.9,adult Start:05-May-2018 Instruction Type:Provider Instructions for Treatment How to access health informa tion online Indication:Overactive bladder Start:17-Mar-2018 Instruction Type:Patient Education How to access health informa tion online - Detail Indication:Overactive bladder Start:17-Mar-2018 Instruction Type:Patient Education Patient Instructions Indication:Overactive bladder Start:17-Mar-2018 Instruction Type:Provider Instructions for Treatment How to access health informa tion online Indication:Screening for HPV (human papillomavirus) (Renamed from Encounter for screening for human papillomavirus (HPV)) Start:14-Jan-2018 Instruction Type:Patient Education How to access health informa tion online - Detail Indication:Screening for HPV (human papillomavirus) (Renamed from Encounter for screening for human papillomavirus (HPV)) Start:14-Jan-2018 Instruction Type:Patient Education Patient Instructions Indication:Screening for HPV (human papillomavirus) (Renamed from Encounter for screening for human papillomavirus (HPV)) Start:14-Jan-2018 Instruction Type:Provider Instructions for Treatment Name Dates Details How to Access Health Informa tion Online using Patient Portal and [employer] Apps Indication:Encounter for annual general medical examination with abnormal findings in adult Start:15-Feb-2020 Instruction Type:Patient Education Patient Instructions Indication:Encounter for annual general medical examination with abnormal findings in adult Start:15-Feb-2020 Instruction Type:Provider Instructions for Treatment How to access health informa tion online Indication:Hypertension, benign Start:21-Dec-2019 Instruction Type:Patient Education How to access health informa tion online - Detail Indication:Hypertension, benign Start:21-Dec-2019 Instruction Type:Patient Education Patient Instructions Indication:Hypertension, benign Start:21-Dec-2019 Instruction Type:Provider Instructions for Treatment How to access health informa tion online Indication:Nonsmoker Start:30-Sep-2019 Instruction Type:Patient Education How to access health informa tion online - Detail Indication:Nonsmoker Start:30-Sep-2019 Instruction Type:Patient Education Patient Instructions Indication:Nonsmoker Start:30-Sep-2019 Instruction Type:Provider Instructions for Treatment How to access health informa tion online Indication:Encounter for annual general medical examination with abnormal findings in adult Start:11-Feb-2019 Instruction Type:Patient Education How to access health informa tion online - Detail Indication:Encounter for annual general medical examination with abnormal findings in adult Start:11-Feb-2019 Instruction Type:Patient Education Patient Instructions Indication:Encounter for annual general medical examination with abnormal findings in adult Start:11-Feb-2019 Instruction Type:Provider Instructions for Treatment How to access health informa tion online Indication:Post-nasal drainage Start:27-Nov-2018 Instruction Type:Patient Education How to access health informa tion online - Detail Indication:Post-nasal drainage Start:27-Nov-2018 Instruction Type:Patient Education Patient Instructions Indication:Post-nasal drainage Start:27-Nov-2018 Instruction Type:Provider Instructions for Treatment How to access health informa tion online Indication:Overactive bladder Start:08-Sep-2018 Instruction Type:Patient Education How to access health informa tion online - Detail Indication:Overactive bladder Start:08-Sep-2018 Instruction Type:Patient Education Patient Instructions Indication:Overactive bladder Start:08-Sep-2018 Instruction Type:Provider Instructions for Treatment How to access health informa tion online Indication:BMI 31.0-31.9,adult Start:05-May-2018 Instruction Type:Patient Education How to access health informa tion online - Detail Indication:BMI 31.0-31.9,adult Start:05-May-2018 Instruction Type:Patient Education Patient Instructions Indication:BMI 31.0-31.9,adult Start:05-May-2018 Instruction Type:Provider Instructions for Treatment How to access health informa tion online Indication:Overactive bladder Start:17-Mar-2018 Instruction Type:Patient Education How to access health informa tion online - Detail Indication:Overactive bladder Start:17-Mar-2018 Instruction Type:Patient Education Patient Instructions Indication:Overactive bladder Start:17-Mar-2018 Instruction Type:Provider Instructions for Treatment How to access health informa tion online Indication:Screening for HPV (human papillomavirus) (Renamed from Encounter for screening for human papillomavirus (HPV)) Start:14-Jan-2018 Instruction Type:Patient Education How to access health informa tion online - Detail Indication:Screening for HPV (human papillomavirus) (Renamed from Encounter for screening for human papillomavirus (HPV)) Start:14-Jan-2018 Instruction Type:Patient Education Patient Instructions Indication:Screening for HPV (human papillomavirus) (Renamed from Encounter for screening for human papillomavirus (HPV)) Start:14-Jan-2018 Instruction Type:Provider Instructions for Treatment Name Dates Details How to Access Health Informa tion Online using Patient Portal and [employer] Apps Indication:Encounter for annual general medical examination with abnormal findings in adult Start:15-Feb-2020 Instruction Type:Patient Education Patient Instructions Indication:Encounter for annual general medical examination with abnormal findings in adult Start:15-Feb-2020 Instruction Type:Provider Instructions for Treatment How to access health informa tion online Indication:Hypertension, benign Start:21-Dec-2019 Instruction Type:Patient Education How to access health informa tion online - Detail Indication:Hypertension, benign Start:21-Dec-2019 Instruction Type:Patient Education Patient Instructions Indication:Hypertension, benign Start:21-Dec-2019 Instruction Type:Provider Instructions for Treatment How to access health informa tion online Indication:Nonsmoker Start:30-Sep-2019 Instruction Type:Patient Education How to access health informa tion online - Detail Indication:Nonsmoker Start:30-Sep-2019 Instruction Type:Patient Education Patient Instructions Indication:Nonsmoker Start:30-Sep-2019 Instruction Type:Provider Instructions for Treatment How to access health informa tion online Indication:Encounter for annual general medical examination with abnormal findings in adult Start:11-Feb-2019 Instruction Type:Patient Education How to access health informa tion online - Detail Indication:Encounter for annual general medical examination with abnormal findings in adult Start:11-Feb-2019 Instruction Type:Patient Education Patient Instructions Indication:Encounter for annual general medical examination with abnormal findings in adult Start:11-Feb-2019 Instruction Type:Provider Instructions for Treatment How to access health informa tion online Indication:Post-nasal drainage Start:27-Nov-2018 Instruction Type:Patient Education How to access health informa tion online - Detail Indication:Post-nasal drainage Start:27-Nov-2018 Instruction Type:Patient Education Patient Instructions Indication:Post-nasal drainage Start:27-Nov-2018 Instruction Type:Provider Instructions for Treatment How to access health informa tion online Indication:Overactive bladder Start:08-Sep-2018 Instruction Type:Patient Education How to access health informa tion online - Detail Indication:Overactive bladder Start:08-Sep-2018 Instruction Type:Patient Education Patient Instructions Indication:Overactive bladder Start:08-Sep-2018 Instruction Type:Provider Instructions for Treatment How to access health informa tion online Indication:BMI 31.0-31.9,adult Start:05-May-2018 Instruction Type:Patient Education How to access health informa tion online - Detail Indication:BMI 31.0-31.9,adult Start:05-May-2018 Instruction Type:Patient Education Patient Instructions Indication:BMI 31.0-31.9,adult Start:05-May-2018 Instruction Type:Provider Instructions for Treatment How to access health informa tion online Indication:Overactive bladder Start:17-Mar-2018 Instruction Type:Patient Education How to access health informa tion online - Detail Indication:Overactive bladder Start:17-Mar-2018 Instruction Type:Patient Education Patient Instructions Indication:Overactive bladder Start:17-Mar-2018 Instruction Type:Provider Instructions for Treatment How to access health informa tion online Indication:Screening for HPV (human papillomavirus) (Renamed from Encounter for screening for human papillomavirus (HPV)) Start:14-Jan-2018 Instruction Type:Patient Education How to access health informa tion online - Detail Indication:Screening for HPV (human papillomavirus) (Renamed from Encounter for screening for human papillomavirus (HPV)) Start:14-Jan-2018 Instruction Type:Patient Education Patient Instructions Indication:Screening for HPV (human papillomavirus) (Renamed from Encounter for screening for human papillomavirus (HPV)) Start:14-Jan-2018 Instruction Type:Provider Instructions for Treatment Name Dates Details How to access health informa tion online Indication:BMI 31.0-31.9,adult Start:05-May-2018 Instruction Type:Patient Education How to access health informa tion online - Detail Indication:BMI 31.0-31.9,adult Start:05-May-2018 Instruction Type:Patient Education Patient Instructions Indication:BMI 31.0-31.9,adult Start:05-May-2018 Instruction Type:Provider Instructions for Treatment How to access health informa tion online Indication:Overactive bladder Start:17-Mar-2018 Instruction Type:Patient Education How to access health informa tion online - Detail Indication:Overactive bladder Start:17-Mar-2018 Instruction Type:Patient Education Patient Instructions Indication:Overactive bladder Start:17-Mar-2018 Instruction Type:Provider Instructions for Treatment How to access health informa tion online Indication:Screening for HPV (human papillomavirus) (Renamed from Encounter for screening for human papillomavirus (HPV)) Start:14-Jan-2018 Instruction Type:Patient Education How to access health informa tion online - Detail Indication:Screening for HPV (human papillomavirus) (Renamed from Encounter for screening for human papillomavirus (HPV)) Start:14-Jan-2018 Instruction Type:Patient Education Patient Instructions Indication:Screening for HPV (human papillomavirus) (Renamed from Encounter for screening for human papillomavirus (HPV)) Start:14-Jan-2018 Instruction Type:Provider Instructions for Treatment Name Dates Details How to Access Health Informa tion Online using Patient Portal and [employer] Apps Indication:Encounter for annual general medical examination with abnormal findings in adult Start:15-Feb-2020 Instruction Type:Patient Education Patient Instructions Indication:Encounter for annual general medical examination with abnormal findings in adult Start:15-Feb-2020 Instruction Type:Provider Instructions for Treatment How to access health informa tion online Indication:Hypertension, benign Start:21-Dec-2019 Instruction Type:Patient Education How to access health informa tion online - Detail Indication:Hypertension, benign Start:21-Dec-2019 Instruction Type:Patient Education Patient Instructions Indication:Hypertension, benign Start:21-Dec-2019 Instruction Type:Provider Instructions for Treatment How to access health informa tion online Indication:Nonsmoker Start:30-Sep-2019 Instruction Type:Patient Education How to access health informa tion online - Detail Indication:Nonsmoker Start:30-Sep-2019 Instruction Type:Patient Education Patient Instructions Indication:Nonsmoker Start:30-Sep-2019 Instruction Type:Provider Instructions for Treatment How to access health informa tion online Indication:Encounter for annual general medical examination with abnormal findings in adult Start:11-Feb-2019 Instruction Type:Patient Education How to access health informa tion online - Detail Indication:Encounter for annual general medical examination with abnormal findings in adult Start:11-Feb-2019 Instruction Type:Patient Education Patient Instructions Indication:Encounter for annual general medical examination with abnormal findings in adult Start:11-Feb-2019 Instruction Type:Provider Instructions for Treatment How to access health informa tion online Indication:Post-nasal drainage Start:27-Nov-2018 Instruction Type:Patient Education How to access health informa tion online - Detail Indication:Post-nasal drainage Start:27-Nov-2018 Instruction Type:Patient Education Patient Instructions Indication:Post-nasal drainage Start:27-Nov-2018 Instruction Type:Provider Instructions for Treatment How to access health informa tion online Indication:Overactive bladder Start:08-Sep-2018 Instruction Type:Patient Education How to access health informa tion online - Detail Indication:Overactive bladder Start:08-Sep-2018 Instruction Type:Patient Education Patient Instructions Indication:Overactive bladder Start:08-Sep-2018 Instruction Type:Provider Instructions for Treatment How to access health informa tion online Indication:BMI 31.0-31.9,adult Start:05-May-2018 Instruction Type:Patient Education How to access health informa tion online - Detail Indication:BMI 31.0-31.9,adult Start:05-May-2018 Instruction Type:Patient Education Patient Instructions Indication:BMI 31.0-31.9,adult Start:05-May-2018 Instruction Type:Provider Instructions for Treatment How to access health informa tion online Indication:Overactive bladder Start:17-Mar-2018 Instruction Type:Patient Education How to access health informa tion online - Detail Indication:Overactive bladder Start:17-Mar-2018 Instruction Type:Patient Education Patient Instructions Indication:Overactive bladder Start:17-Mar-2018 Instruction Type:Provider Instructions for Treatment How to access health informa tion online Indication:Screening for HPV (human papillomavirus) (Renamed from Encounter for screening for human papillomavirus (HPV)) Start:14-Jan-2018 Instruction Type:Patient Education How to access health informa tion online - Detail Indication:Screening for HPV (human papillomavirus) (Renamed from Encounter for screening for human papillomavirus (HPV)) Start:14-Jan-2018 Instruction Type:Patient Education Patient Instructions Indication:Screening for HPV (human papillomavirus) (Renamed from Encounter for screening for human papillomavirus (HPV)) Start:14-Jan-2018 Instruction Type:Provider Instructions for Treatment Name Dates Details How to access health informa tion online Indication:Hypertension, benign Start:21-Dec-2019 Instruction Type:Patient Education How to access health informa tion online - Detail Indication:Hypertension, benign Start:21-Dec-2019 Instruction Type:Patient Education Patient Instructions Indication:Hypertension, benign Start:21-Dec-2019 Instruction Type:Provider Instructions for Treatment How to access health informa tion online Indication:Nonsmoker Start:30-Sep-2019 Instruction Type:Patient Education How to access health informa tion online - Detail Indication:Nonsmoker Start:30-Sep-2019 Instruction Type:Patient Education Patient Instructions Indication:Nonsmoker Start:30-Sep-2019 Instruction Type:Provider Instructions for Treatment How to access health informa tion online Indication:Encounter for annual general medical examination with abnormal findings in adult Start:11-Feb-2019 Instruction Type:Patient Education How to access health informa tion online - Detail Indication:Encounter for annual general medical examination with abnormal findings in adult Start:11-Feb-2019 Instruction Type:Patient Education Patient Instructions Indication:Encounter for annual general medical examination with abnormal findings in adult Start:11-Feb-2019 Instruction Type:Provider Instructions for Treatment How to access health informa tion online Indication:Post-nasal drainage Start:27-Nov-2018 Instruction Type:Patient Education How to access health informa tion online - Detail Indication:Post-nasal drainage Start:27-Nov-2018 Instruction Type:Patient Education Patient Instructions Indication:Post-nasal drainage Start:27-Nov-2018 Instruction Type:Provider Instructions for Treatment How to access health informa tion online Indication:Overactive bladder Start:08-Sep-2018 Instruction Type:Patient Education How to access health informa tion online - Detail Indication:Overactive bladder Start:08-Sep-2018 Instruction Type:Patient Education Patient Instructions Indication:Overactive bladder Start:08-Sep-2018 Instruction Type:Provider Instructions for Treatment How to access health informa tion online Indication:BMI 31.0-31.9,adult Start:05-May-2018 Instruction Type:Patient Education How to access health informa tion online - Detail Indication:BMI 31.0-31.9,adult Start:05-May-2018 Instruction Type:Patient Education Patient Instructions Indication:BMI 31.0-31.9,adult Start:05-May-2018 Instruction Type:Provider Instructions for Treatment How to access health informa tion online Indication:Overactive bladder Start:17-Mar-2018 Instruction Type:Patient Education How to access health informa tion online - Detail Indication:Overactive bladder Start:17-Mar-2018 Instruction Type:Patient Education Patient Instructions Indication:Overactive bladder Start:17-Mar-2018 Instruction Type:Provider Instructions for Treatment How to access health informa tion online Indication:Screening for HPV (human papillomavirus) (Renamed from Encounter for screening for human papillomavirus (HPV)) Start:14-Jan-2018 Instruction Type:Patient Education How to access health informa tion online - Detail Indication:Screening for HPV (human papillomavirus) (Renamed from Encounter for screening for human papillomavirus (HPV)) Start:14-Jan-2018 Instruction Type:Patient Education Patient Instructions Indication:Screening for HPV (human papillomavirus) (Renamed from Encounter for screening for human papillomavirus (HPV)) Start:14-Jan-2018 Instruction Type:Provider Instructions for Treatment Name Dates Details Patient Instructions Indication:BMI 32.0-32.9,adult Start:06-May-2020 Instruction Type:Provider Instructions for Treatment How to Access Health Informa tion Online using Patient Portal and [employer] Apps Indication:BMI 32.0-32.9,adult Start:06-May-2020 Instruction Type:Patient Education How to Access Health Informa tion Online using Patient Portal and [employer] Apps Indication:Encounter for annual general medical examination with abnormal findings in adult Start:15-Feb-2020 Instruction Type:Patient Education Patient Instructions Indication:Encounter for annual general medical examination with abnormal findings in adult Start:15-Feb-2020 Instruction Type:Provider Instructions for Treatment How to access health informa tion online Indication:Hypertension, benign Start:21-Dec-2019 Instruction Type:Patient Education How to access health informa tion online - Detail Indication:Hypertension, benign Start:21-Dec-2019 Instruction Type:Patient Education Patient Instructions Indication:Hypertension, benign Start:21-Dec-2019 Instruction Type:Provider Instructions for Treatment How to access health informa tion online Indication:Nonsmoker Start:30-Sep-2019 Instruction Type:Patient Education How to access health informa tion online - Detail Indication:Nonsmoker Start:30-Sep-2019 Instruction Type:Patient Education Patient Instructions Indication:Nonsmoker Start:30-Sep-2019 Instruction Type:Provider Instructions for Treatment How to access health informa tion online Indication:Encounter for annual general medical examination with abnormal findings in adult Start:11-Feb-2019 Instruction Type:Patient Education How to access health informa tion online - Detail Indication:Encounter for annual general medical examination with abnormal findings in adult Start:11-Feb-2019 Instruction Type:Patient Education Patient Instructions Indication:Encounter for annual general medical examination with abnormal findings in adult Start:11-Feb-2019 Instruction Type:Provider Instructions for Treatment How to access health informa tion online Indication:Post-nasal drainage Start:27-Nov-2018 Instruction Type:Patient Education How to access health informa tion online - Detail Indication:Post-nasal drainage Start:27-Nov-2018 Instruction Type:Patient Education Patient Instructions Indication:Post-nasal drainage Start:27-Nov-2018 Instruction Type:Provider Instructions for Treatment How to access health informa tion online Indication:Overactive bladder Start:08-Sep-2018 Instruction Type:Patient Education How to access health informa tion online - Detail Indication:Overactive bladder Start:08-Sep-2018 Instruction Type:Patient Education Patient Instructions Indication:Overactive bladder Start:08-Sep-2018 Instruction Type:Provider Instructions for Treatment How to access health informa tion online Indication:BMI 31.0-31.9,adult Start:05-May-2018 Instruction Type:Patient Education How to access health informa tion online - Detail Indication:BMI 31.0-31.9,adult Start:05-May-2018 Instruction Type:Patient Education Patient Instructions Indication:BMI 31.0-31.9,adult Start:05-May-2018 Instruction Type:Provider Instructions for Treatment How to access health informa tion online Indication:Overactive bladder Start:17-Mar-2018 Instruction Type:Patient Education How to access health informa tion online - Detail Indication:Overactive bladder Start:17-Mar-2018 Instruction Type:Patient Education Patient Instructions Indication:Overactive bladder Start:17-Mar-2018 Instruction Type:Provider Instructions for Treatment How to access health informa tion online Indication:Screening for HPV (human papillomavirus) (Renamed from Encounter for screening for human papillomavirus (HPV)) Start:14-Jan-2018 Instruction Type:Patient Education How to access health informa tion online - Detail Indication:Screening for HPV (human papillomavirus) (Renamed from Encounter for screening for human papillomavirus (HPV)) Start:14-Jan-2018 Instruction Type:Patient Education Patient Instructions Indication:Screening for HPV (human papillomavirus) (Renamed from Encounter for screening for human papillomavirus (HPV)) Start:14-Jan-2018 Instruction Type:Provider Instructions for Treatment Name Dates Details Patient Instructions Indication:BMI 32.0-32.9,adult Start:06-May-2020 Instruction Type:Provider Instructions for Treatment How to Access Health Informa tion Online using Patient Portal and [employer] Indication:BMI 32.0-32.9,adult Start:06-May-2020 Instruction Type:Patient Education How to Access Health Informa tion Online using Patient Portal and [employer] Apps Indication:Encounter for annual general medical examination with abnormal findings in adult Start:15-Feb-2020 Instruction Type:Patient Education Patient Instructions Indication:Encounter for annual general medical examination with abnormal findings in adult Start:15-Feb-2020 Instruction Type:Provider Instructions for Treatment How to access health informa tion online Indication:Hypertension, benign Start:21-Dec-2019 Instruction Type:Patient Education How to access health informa tion online - Detail Indication:Hypertension, benign Start:21-Dec-2019 Instruction Type:Patient Education Patient Instructions Indication:Hypertension, benign Start:21-Dec-2019 Instruction Type:Provider Instructions for Treatment How to access health informa tion online Indication:Nonsmoker Start:30-Sep-2019 Instruction Type:Patient Education How to access health informa tion online - Detail Indication:Nonsmoker Start:30-Sep-2019 Instruction Type:Patient Education Patient Instructions Indication:Nonsmoker Start:30-Sep-2019 Instruction Type:Provider Instructions for Treatment How to access health informa tion online Indication:Encounter for annual general medical examination with abnormal findings in adult Start:11-Feb-2019 Instruction Type:Patient Education How to access health informa tion online - Detail Indication:Encounter for annual general medical examination with abnormal findings in adult Start:11-Feb-2019 Instruction Type:Patient Education Patient Instructions Indication:Encounter for annual general medical examination with abnormal findings in adult Start:11-Feb-2019 Instruction Type:Provider Instructions for Treatment How to access health informa tion online Indication:Post-nasal drainage Start:27-Nov-2018 Instruction Type:Patient Education How to access health informa tion online - Detail Indication:Post-nasal drainage Start:27-Nov-2018 Instruction Type:Patient Education Patient Instructions Indication:Post-nasal drainage Start:27-Nov-2018 Instruction Type:Provider Instructions for Treatment How to access health informa tion online Indication:Overactive bladder Start:08-Sep-2018 Instruction Type:Patient Education How to access health informa tion online - Detail Indication:Overactive bladder Start:08-Sep-2018 Instruction Type:Patient Education Patient Instructions Indication:Overactive bladder Start:08-Sep-2018 Instruction Type:Provider Instructions for Treatment How to access health informa tion online Indication:BMI 31.0-31.9,adult Start:05-May-2018 Instruction Type:Patient Education How to access health informa tion online - Detail Indication:BMI 31.0-31.9,adult Start:05-May-2018 Instruction Type:Patient Education Patient Instructions Indication:BMI 31.0-31.9,adult Start:05-May-2018 Instruction Type:Provider Instructions for Treatment How to access health informa tion online Indication:Overactive bladder Start:17-Mar-2018 Instruction Type:Patient Education How to access health informa tion online - Detail Indication:Overactive bladder Start:17-Mar-2018 Instruction Type:Patient Education Patient Instructions Indication:Overactive bladder Start:17-Mar-2018 Instruction Type:Provider Instructions for Treatment How to access health informa tion online Indication:Screening for HPV (human papillomavirus) (Renamed from Encounter for screening for human papillomavirus (HPV)) Start:14-Jan-2018 Instruction Type:Patient Education How to access health informa tion online - Detail Indication:Screening for HPV (human papillomavirus) (Renamed from Encounter for screening for human papillomavirus (HPV)) Start:14-Jan-2018 Instruction Type:Patient Education Patient Instructions Indication:Screening for HPV (human papillomavirus) (Renamed from Encounter for screening for human papillomavirus (HPV)) Start:14-Jan-2018 Instruction Type:Provider Instructions for Treatment Name Dates Details How to access health informa tion online Indication:Encounter for annual general medical examination with abnormal findings in adult Start:11-Feb-2019 Instruction Type:Patient Education How to access health informa tion online - Detail Indication:Encounter for annual general medical examination with abnormal findings in adult Start:11-Feb-2019 Instruction Type:Patient Education Patient Instructions Indication:Encounter for annual general medical examination with abnormal findings in adult Start:11-Feb-2019 Instruction Type:Provider Instructions for Treatment How to access health informa tion online Indication:Post-nasal drainage Start:27-Nov-2018 Instruction Type:Patient Education How to access health informa tion online - Detail Indication:Post-nasal drainage Start:27-Nov-2018 Instruction Type:Patient Education Patient Instructions Indication:Post-nasal drainage Start:27-Nov-2018 Instruction Type:Provider Instructions for Treatment How to access health informa tion online Indication:Overactive bladder Start:08-Sep-2018 Instruction Type:Patient Education How to access health informa tion online - Detail Indication:Overactive bladder Start:08-Sep-2018 Instruction Type:Patient Education Patient Instructions Indication:Overactive bladder Start:08-Sep-2018 Instruction Type:Provider Instructions for Treatment How to access health informa tion online Indication:BMI 31.0-31.9,adult Start:05-May-2018 Instruction Type:Patient Education How to access health informa tion online - Detail Indication:BMI 31.0-31.9,adult Start:05-May-2018 Instruction Type:Patient Education Patient Instructions Indication:BMI 31.0-31.9,adult Start:05-May-2018 Instruction Type:Provider Instructions for Treatment How to access health informa tion online Indication:Overactive bladder Start:17-Mar-2018 Instruction Type:Patient Education How to access health informa tion online - Detail Indication:Overactive bladder Start:17-Mar-2018 Instruction Type:Patient Education Patient Instructions Indication:Overactive bladder Start:17-Mar-2018 Instruction Type:Provider Instructions for Treatment How to access health informa tion online Indication:Screening for HPV (human papillomavirus) (Renamed from Encounter for screening for human papillomavirus (HPV)) Start:14-Jan-2018 Instruction Type:Patient Education How to access health informa tion online - Detail Indication:Screening for HPV (human papillomavirus) (Renamed from Encounter for screening for human papillomavirus (HPV)) Start:14-Jan-2018 Instruction Type:Patient Education Patient Instructions Indication:Screening for HPV (human papillomavirus) (Renamed from Encounter for screening for human papillomavirus (HPV)) Start:14-Jan-2018 Instruction Type:Provider Instructions for Treatment Name Dates Details Patient Instructions Indication:BMI 32.0-32.9,adult Start:06-May-2020 Instruction Type:Provider Instructions for Treatment How to Access Health Informa tion Online using Patient Portal and [employer] Indication:BMI 32.0-32.9,adult Start:06-May-2020 Instruction Type:Patient Education How to Access Health Informa tion Online using Patient Portal and [employer] Indication:Encounter for annual general medical examination with abnormal findings in adult Start:15-Feb-2020 Instruction Type:Patient Education Patient Instructions Indication:Encounter for annual general medical examination with abnormal findings in adult Start:15-Feb-2020 Instruction Type:Provider Instructions for Treatment How to access health informa tion online Indication:Hypertension, benign Start:21-Dec-2019 Instruction Type:Patient Education How to access health informa tion online - Detail Indication:Hypertension, benign Start:21-Dec-2019 Instruction Type:Patient Education Patient Instructions Indication:Hypertension, benign Start:21-Dec-2019 Instruction Type:Provider Instructions for Treatment How to access health informa tion online Indication:Nonsmoker Start:30-Sep-2019 Instruction Type:Patient Education How to access health informa tion online - Detail Indication:Nonsmoker Start:30-Sep-2019 Instruction Type:Patient Education Patient Instructions Indication:Nonsmoker Start:30-Sep-2019 Instruction Type:Provider Instructions for Treatment How to access health informa tion online Indication:Encounter for annual general medical examination with abnormal findings in adult Start:11-Feb-2019 Instruction Type:Patient Education How to access health informa tion online - Detail Indication:Encounter for annual general medical examination with abnormal findings in adult Start:11-Feb-2019 Instruction Type:Patient Education Patient Instructions Indication:Encounter for annual general medical examination with abnormal findings in adult Start:11-Feb-2019 Instruction Type:Provider Instructions for Treatment How to access health informa tion online Indication:Post-nasal drainage Start:27-Nov-2018 Instruction Type:Patient Education How to access health informa tion online - Detail Indication:Post-nasal drainage Start:27-Nov-2018 Instruction Type:Patient Education Patient Instructions Indication:Post-nasal drainage Start:27-Nov-2018 Instruction Type:Provider Instructions for Treatment How to access health informa tion online Indication:Overactive bladder Start:08-Sep-2018 Instruction Type:Patient Education How to access health informa tion online - Detail Indication:Overactive bladder Start:08-Sep-2018 Instruction Type:Patient Education Patient Instructions Indication:Overactive bladder Start:08-Sep-2018 Instruction Type:Provider Instructions for Treatment How to access health informa tion online Indication:BMI 31.0-31.9,adult Start:05-May-2018 Instruction Type:Patient Education How to access health informa tion online - Detail Indication:BMI 31.0-31.9,adult Start:05-May-2018 Instruction Type:Patient Education Patient Instructions Indication:BMI 31.0-31.9,adult Start:05-May-2018 Instruction Type:Provider Instructions for Treatment How to access health informa tion online Indication:Overactive bladder Start:17-Mar-2018 Instruction Type:Patient Education How to access health informa tion online - Detail Indication:Overactive bladder Start:17-Mar-2018 Instruction Type:Patient Education Patient Instructions Indication:Overactive bladder Start:17-Mar-2018 Instruction Type:Provider Instructions for Treatment How to access health informa tion online Indication:Screening for HPV (human papillomavirus) (Renamed from Encounter for screening for human papillomavirus (HPV)) Start:14-Jan-2018 Instruction Type:Patient Education How to access health informa tion online - Detail Indication:Screening for HPV (human papillomavirus) (Renamed from Encounter for screening for human papillomavirus (HPV)) Start:14-Jan-2018 Instruction Type:Patient Education Patient Instructions Indication:Screening for HPV (human papillomavirus) (Renamed from Encounter for screening for human papillomavirus (HPV)) Start:14-Jan-2018 Instruction Type:Provider Instructions for Treatment Name Dates Details How to access health informa tion online Indication:Nonsmoker Start:30-Sep-2019 Instruction Type:Patient Education How to access health informa tion online - Detail Indication:Nonsmoker Start:30-Sep-2019 Instruction Type:Patient Education Patient Instructions Indication:Nonsmoker Start:30-Sep-2019 Instruction Type:Provider Instructions for Treatment How to access health informa tion online Indication:Encounter for annual general medical examination with abnormal findings in adult Start:11-Feb-2019 Instruction Type:Patient Education How to access health informa tion online - Detail Indication:Encounter for annual general medical examination with abnormal findings in adult Start:11-Feb-2019 Instruction Type:Patient Education Patient Instructions Indication:Encounter for annual general medical examination with abnormal findings in adult Start:11-Feb-2019 Instruction Type:Provider Instructions for Treatment How to access health informa tion online Indication:Post-nasal drainage Start:27-Nov-2018 Instruction Type:Patient Education How to access health informa tion online - Detail Indication:Post-nasal drainage Start:27-Nov-2018 Instruction Type:Patient Education Patient Instructions Indication:Post-nasal drainage Start:27-Nov-2018 Instruction Type:Provider Instructions for Treatment How to access health informa tion online Indication:Overactive bladder Start:08-Sep-2018 Instruction Type:Patient Education How to access health informa tion online - Detail Indication:Overactive bladder Start:08-Sep-2018 Instruction Type:Patient Education Patient Instructions Indication:Overactive bladder Start:08-Sep-2018 Instruction Type:Provider Instructions for Treatment How to access health informa tion online Indication:BMI 31.0-31.9,adult Start:05-May-2018 Instruction Type:Patient Education How to access health informa tion online - Detail Indication:BMI 31.0-31.9,adult Start:05-May-2018 Instruction Type:Patient Education Patient Instructions Indication:BMI 31.0-31.9,adult Start:05-May-2018 Instruction Type:Provider Instructions for Treatment How to access health informa tion online Indication:Overactive bladder Start:17-Mar-2018 Instruction Type:Patient Education How to access health informa tion online - Detail Indication:Overactive bladder Start:17-Mar-2018 Instruction Type:Patient Education Patient Instructions Indication:Overactive bladder Start:17-Mar-2018 Instruction Type:Provider Instructions for Treatment How to access health informa tion online Indication:Screening for HPV (human papillomavirus) (Renamed from Encounter for screening for human papillomavirus (HPV)) Start:14-Jan-2018 Instruction Type:Patient Education How to access health informa tion online - Detail Indication:Screening for HPV (human papillomavirus) (Renamed from Encounter for screening for human papillomavirus (HPV)) Start:14-Jan-2018 Instruction Type:Patient Education Patient Instructions Indication:Screening for HPV (human papillomavirus) (Renamed from Encounter for screening for human papillomavirus (HPV)) Start:14-Jan-2018 Instruction Type:Provider Instructions for Treatment Additional Source Comments INFORMATION SOURCE (unrecogn ized section and content) DATE CREATED AUTHOR AUTHOR'S RADHA ATION 07/16/2022 [facility] FOR RECORDS PERTAINING TO PATIENTS WHO ARE OR HAVE BEEN ENROLLED IN A CHEMICAL DEPENDENCY/SUBSTANCEABUSE PROGRAM, SOME INFORMATION MAY BE OMITTED. This clinical summary was aggregated from multiple sources. Caution should be exercised in using it in the provision of clinical care. This summary normalizes information from multiple sources, and as a consequence, information in this document may materially change the coding, format and clinical context of patient data. In addition, data may be omitted in some cases. CLINICAL DECISIONS SHOULD BE BASED ON THE PRIMARY CLINICAL RECORDS. [email or web address] provides no warranty or guarantee of the accuracy or completeness of information in this document.
== END | disposition home or self-care (01) ==
LOC: OPBD 12:35
PROVIDERS: PCP Internal Medicine; Referring Provider Internal Medicine; Visit Provider Internal Medicine
DX: M81.0 Age-related osteoporosis without current pathological fracture (principal)
CPT/HCPCS: 77080

== ENCOUNTER → 2024-01-03 | Outpatient (CLI) | payer MEDICARE, OTHER, SELFPAY ==
--- NOTE | 2024-01-03 13:49 | BI_ITS ---
MAMMOGRAPHY - BILATERAL SCREENING REASON FOR EXAM: Female, 73 years old. Routine annual screening examination. PERTINENT HISTORY: Non-contributory. TECHNIQUE: Digital bilateral breast burton (3D mammographic acquisition) in the CC and MLO projections. 2-D mediolateral oblique (MLO) and craniocaudad (CC) views of both breasts were obtained. CAD: Full Field Digital Mammography with Computer Added Detection was performed. COMPARISON: Comparison is made with prior study December 26, 2022 and December 25, 2021. FINDINGS: Breast Composition: There are scattered areas of fibroglandular density. There are no dominant masses or suspicious calcifications. No other significant abnormalities are identified. There has been no significant change since the prior study. BI/SCRN MAMM (CAD)W/BURTON BILAT IMPRESSION: Stable bilateral screening mammogram. Yearly follow-up mammogram recommended. (A) ASSESSMENT CATEGORY: BIRADS Category 1: Negative. A letter regarding these results will be sent to the patient by the facility within 30 days. Approximately 10% of breast cancers are not detected by mammography. A normal mammogram should not delay biopsy of a clinically suspicious abnormality. [id number] Electronically Signed: Gary Hawley MD at 14:19 EDT ,
== END | disposition home or self-care (01) ==
LOC: OPBI 13:47
PROVIDERS: PCP Internal Medicine; Referring Provider Internal Medicine; Visit Provider Internal Medicine
DX: Z12.31 Encounter for screening mammogram for malignant neoplasm of breast (principal)
CPT/HCPCS: 77063; 77067

== ENCOUNTER → 2025-01-21 | Outpatient (CLI) | payer MEDICARE, OTHER, SELFPAY ==
--- NOTE | 2025-01-21 12:13 | BI_ITS ---
EXAM: SCRN MAMM (CAD)W/BURTON BILAT DATE: 01/21/2025 CLINICAL HISTORY: F, Age 74 y/o , SCREENING No family history. TECHNIQUE: Procedure Code: [id number] Modality: MG Procedure: SCRN MAMM (CAD)W/BURTON BILAT COMPARISON: Prior exam(s) dated January 03, 2024.. FINDINGS: TISSUE DENSITY: There are scattered areas of fibroglandular density. Bilateral Breast Mammographic Findings: No significant masses, calcifications or other abnormalities are identified. No suspicious masses, areas of developing architectural distortion, or suspicious calcifications. There has been no significant interval change. BI/SCRN MAMM (CAD)W/BURTON BILAT IMPRESSION: Stable bilateral screening mammogram. OVERALL FINAL ASSESSMENT BI-RADS 1: NEGATIVE. RECOMMENDATION: Routine annual follow-up in 1 Year Additional Recommendation none A letter with findings and recommendations will be mailed to the patient. Reading Location: [facility]
== END | disposition home or self-care (01) ==
PROVIDERS: PCP Internal Medicine; Referring Provider Internal Medicine; Visit Provider Internal Medicine
DX: Z12.31 Encounter for screening mammogram for malignant neoplasm of breast (principal)
CPT/HCPCS: 77063; 77067

== ENCOUNTER → 2025-02-18 | Outpatient (CLI) | payer MEDICARE, OTHER, SELFPAY ==
[2025-02-18 08:11] LABS: Mucous, Urine 0 SEEN /hpf (<or=2+)
[2025-02-18 10:45] LABS: Color, Urine Yellow (Yellow); Glucose, Dipstick Normal (Normal); Hematocrit 39.4 % (37-47); Hemoglobin 12.7 g/dL (12.0-15.0); Immature Granulocytes Count 0.020 X10^3/uL (0.0-0.0); Ketone-Dipstick Negative (Negative); Leukocyte Esterase-Dipstick Negative /ul (Negative); Mean Corp Hgb Conc 32.2 g/dL (32-36); Mean Corpuscular Volume 98.5 fL (81-99); Mean Platelet Vol. 10.2 fl (6.2-12.0); NRBC Flagged by Analyzer 0 % (0-5); Nitrite-Dipstick Negative (Negative); Occult Blood-Urine 10 /ul (Negative); Platelet Count 285 K/mm3 (150-450); Protein-Dipstick 15 mg/dl (Negative); RBC Distribution Width CV 13.0 % (11.6-14.6); RBC Distribution Width SD 46.8 fl (35.1-43.9); Red Blood Count 4.00 M/mm3 (4.2-5.4); Specific Gravity, Urine 1.010 (1.002-1.030); Urine Bilirubin Dipstick Negative (Negative); White Blood Count 4.9 K/mm3 (4.4-11.0)
[2025-02-18 10:54] LABS: Red Blood Cells-Urine 0-5 SEEN /hpf (0-5); Squamous Epithelial Cells - UA 0-5 SEEN /hpf (5-10)
[2025-02-18 11:16] LABS: Creatinine, Urine (random) 113.00 mg/dL (28.00-217.00); Microalbumin,Random Urine < 12.0 mg/L (<20 mg/L)
[2025-02-18 11:24] LABS: AST(SGOT) 16 U/L (<=31); Alanine Aminotransfer ALT/SGPT 11 U/L (<=34); Albumin, Serum 4.0 g/dL (3.4-4.8); Alkaline Phosphatase 78 U/L (35-104); Anion Gap 10 (5-15); BUN 18 mg/dL (4-19); BUN/Creat Ratio 18.4 RATIO (10-20); Calcium,Total 8.7 mg/dL (7.6-11.0); Carbon Dioxide 22.6 mmol/L (21.0-32.0); Chloride 107 mmol/L (98-108); Globulin 2.4 g/dL (2.2-4.2); Glucose 102 mg/dL (70-99); Potassium 4.1 mmol/L (3.3-5.1)
== END | disposition home or self-care (01) ==
LOC: CIMLAB 08:10
PROVIDERS: PCP Internal Medicine; Referring Provider Internal Medicine; Visit Provider Internal Medicine
DX: I10 Essential (primary) hypertension (principal)
CPT/HCPCS: 36415; 80053; 81001; 82043; 82570; 85025; 87086